=== PATIENT | male | born 1945 | race Hispanic/Latino ===

== ENCOUNTER 2018-01-15 06:20 | Day surgery (SDC) | payer MEDICARE ==
[2018-01-04 12:28] VITALS: BMI 34.2
[2018-01-15 07:13] LABS: INR 0.96; PARTIAL THROMBOPLASTIN TIME 28.3 Seconds (25.1-36.5)
[2018-01-15 07:14] VITALS: RESP 18
[2018-01-15] MEDS ORDERED: Lidocaine 1% Inj (20ml) ONE (07:31)
[2018-01-15] MEDS ORDERED: Bupivacaine 0.5% 50 ML IJ ONE (07:31)
[2018-01-15] MEDS ORDERED: Etomidate 20 mg/10ml Inj IV ONE (07:55)
[2018-01-15] MEDS ORDERED: Propofol 10 mg/ml Inj (20 ML) ONE (07:55)
[2018-01-15] MEDS ORDERED: Midazolam 2 MG/2 ML VIAL ONE (07:55)
[2018-01-15] MEDS ORDERED: Ciprofloxacin 400mg/200ml D5W 400 MG/200 ML BAG IVPB ONE (07:56)
[2018-01-15] MEDS ORDERED: HYDROmorphone 0.5 mg/0.5 ml ISec IVP PRN (09:37)
--- NOTE | 2018-01-15 09:41 | PCM.SURG1 ---
Surgeon's Initial Post Op Note - Surgeon's Notes Surgeon: Dr. De Jesus Leader Tier: Dr. Pham, Dr. Adler Type of Anesthesia: General LMA Anesthesia Administered By: Dr. Adamson Pre-Operative Diagnosis: bilateral lower and upper extremity weakness Operative Findings: see operative dictation Post-Operative Diagnosis: same Operation Performed: left bicep and right quadratus muscle biopsy Specimen/Specimens Removed: left bicep and right qradratus muscle Estimated Blood Loss: EBL {In ML}: 5 Blood Products Given: N/A Drains Used: No Drains Post-Op Condition: Good Date of Surgery/Procedure: 01/15/18 Time of Surgery/Procedure: 09:40
[2018-01-15] MEDS ORDERED: Lactated Ringer's 1,000 ML IV SCH (09:45)
[2018-01-15] MEDS ORDERED: HYDROmorphone 0.5 mg/0.5 ml ISec ONE ×2 (10:00→10:25)
[2018-01-15] MEDS ORDERED: HYDROmorphone 0.5 mg/0.5 ml ISec IVP ONE ×2 (10:01→10:25)
[2018-01-15 11:02] VITALS: PULSE 57; TEMP 97.8; O2SAT 97
[2018-01-15 11:30] VITALS: BP 152/71
--- NOTE | 2018-01-19 13:38 | OP ---
PROCEDURE DATE: 01/15/2018 PREOPERATIVE DIAGNOSIS: Muscle weakness. POSTOPERATIVE DIAGNOSIS: Muscle weakness. PROCEDURES PERFORMED: 1. Muscle biopsy of the left biceps. 2. Muscle biopsy of the right quadriceps muscle in the right. SURGEON: Akhil De Jesus MD. STREET [employer]IL[employer] LINE INSTALLER: Sheron Pham DO and Marcos Roy MD ANESTHESIOLOGIST: Geovanny Adamson MD ANESTHESIA: General endotracheal anesthesia. ESTIMATED BLOOD LOSS: Minimal. SPECIMEN: Muscle biopsy of the left arm from the left biceps muscle and right leg from the quadriceps muscle. INDICATIONS: The patient is a 72-year-old male who was currently being ruled out for myositis and presents with progressive muscle weakness. The patient was scheduled for the muscle biopsy. DESCRIPTION OF PROCEDURE: The patient was brought to the operating room, placed on the operating table in supine position. The patient was connected to EKG, blood pressure, and pulse oximetry monitors. The patient then underwent general endotracheal anesthesia, was prepped and draped in the usual sterile fashion. First a standard time-out procedure took place when everybody in the room agreed as to the patient's identity, diagnosis, and procedure to be performed. Using lidocaine mixed with Marcaine, the skin was infiltrated directly overlying the medial aspect of the biceps muscle. This was then carefully incised using #15 blade for about 5 cm. Through that incision, careful dissection was done down to the muscle fascia which was incised with a knife and . The muscle fibers were exposed and now the bundle about a centimeter thick was carefully from the underlying remaining muscle and mobilized for about 5 cm. It was ligated down to both ends using 3-0 Vicryl tie and resected using #15 blade. The specimen was then tied to the tongue depressor piece and placed in a saline soaked 4 x 4 into the specimen jar. Next the wound was copiously irrigated. All the bleeding points were cauterized. The muscle fascia was closed using 3-0 Vicryl. Subcutaneous tissues were closed using 3-0 Vicryl and skin was closed using 4-0 Monocryl. Sterile Dermabond dressing was applied to that wound. The patient was turned to the area of the right quadriceps muscle where initial left fascial incision was made of about 5 cm and dissection was then down through to the muscle fibers. The muscle fibers were resected again with about 1 cm bundle which was about 4 cm long. This was again wrapped with saline soaked 4 x 4 and placed on the tongue depressor and into the specimen cup. The wound was then copiously irrigated, bleeding points cauterized. Fascia closed. Subcutaneous tissue closed using 3-0 Vicryl and skin closed using 4-0 Monocryl. Sterile Dermabond dressing was applied to the wound. The patient tolerated the procedure well and there was no complication. The patient was awakened, extubated and transferred to recovery room for further observation. Akhil De Jesus MD
== END 2018-01-15 13:15 | disposition home or self-care (01) ==
LOC: SDS 06:20
PROVIDERS: ATTEND General Practice
DX: G72.49 Other inflammatory and immune myopathies, not elsewhere classified (principal); I10 Essential (primary) hypertension; I25.10 Atherosclerotic heart disease of native coronary artery without angina pectoris; E66.9 Obesity, unspecified; Z88.0 Allergy status to penicillin
CPT/HCPCS: 20205; 36415; 85610; 85730; J0744; J1170; J1885; J2001; J2250; J2405; J2704; J2765; J3010; J7120 ×2

== ENCOUNTER 2018-03-14 13:24 | Inpatient (IN) | payer MEDICARE ==
[2018-03-14 13:24] VITALS: BMI 34.2
--- NOTE | 2018-03-14 14:57 | RAD ---
Date of service: 03/14/2018 HISTORY: r/o infiltrate COMPARISON: No prior. FINDINGS: LUNGS: No active pulmonary disease. PLEURA: No significant pleural effusion identified, no pneumothorax apparent. CARDIOVASCULAR: No aortic atherosclerotic calcification present. Mild cardiomegaly no pulmonary vascular congestion. OSSEOUS STRUCTURES: No significant abnormalities. VISUALIZED UPPER ABDOMEN: Normal. OTHER FINDINGS: None. IMPRESSION: No active disease.
--- NOTE | 2018-03-14 15:06 | ED PDOC ---
Arrival/HPI - General Chief Complaint: Abnormal Labs Time Seen by Provider: 03/14/18 13:35 Historian: Patient - History of Present Illness Narrative History of Present Illness (Text): 03/14/18 14:08 72 year old male, whose past medical history includes CAD with 5 stents (3 stents from 2007 and 2 from 2008), diabetes induced, and ankle surgery from age of 11, who was sent to the emergency department from Dr. Rolon's office to be admitted by Dr. Antonio here at [facility] for Polymyositis. Pt notes muscle weakness and shoulder pain, correlating it with having to use walkers to ambulate and Prednisone possibly weakening his muscles. Pt states he has fallen 8 times at home since February 26, 2018. Pt notes leg edema. Pt denies any nausea, vomiting, fevers, or any other complaints. PMD: [place] Time/Duration: Prior to Arrival Symptom Onset: Gradual Symptom Course: Unchanged Activities at Onset: Light Past Medical History - Provider Review Nursing Documentation Reviewed: Yes - Cardiac Hx Hypertension: Yes - Pulmonary Hx Respiratory Disorders: No - Neurological Hx Neurological Disorder: Yes Other/Comment: POLYMYOSITIS - HEENT Hx HEENT Disorder: No - Renal Hx Renal Disorder: No - Endocrine/Metabolic Hx Endocrine Disorders: Yes Hx Diabetes Mellitus Type 2: Yes Hx Hypothyroidism: Yes - Hematological/Oncological Hx Blood Disorders: No - Integumentary Hx Dermatological Disorder: No - Musculoskeletal/Rheumatological Hx Musculoskeletal Disorders: Yes Other/Comment: POLYMYOSITIS - Gastrointestinal Hx Gastrointestinal Disorders: No - Genitourinary/Gynecological Hx Genitourinary Disorders: No - Psychiatric Hx Psychophysiologic Disorder: No Hx Emotional Abuse: No Hx Physical Abuse: No Hx Substance Use: No - Anesthesia Hx Anesthesia: Yes Hx Anesthesia Reactions: No Hx Malignant Hyperthermia: No - Suicidal Assessment Feels Threatened In Home Enviroment: No Family/Social History - Physician Review Nursing Documentation Reviewed: Yes Family/Social History: No Known Family HX Smoking Status: Never Smoked Hx Alcohol Use: Yes (WINE) Hx Substance Use: No Allergies/Home Meds Allergies/Adverse Reactions: Allergies Penicillins Allergy (Severe, Verified 01/04/18 12:30) RASH,HIVES,SHORT OF BREATH Home Medications: Home Meds Medication Instructions Recorded Confirmed Ascorbic Acid [Vitamin C] 1,000 mg PO QWK 01/04/18 03/01/18 Aspirin [Ecotrin] 81 mg PO DAILY 01/04/18 03/01/18 Cholecalciferol (Vitamin D3) 2,000 unit PO DAILY 01/04/18 03/01/18 [Vitamin D3] Clopidogrel [Plavix] 75 mg PO DAILY 01/04/18 03/01/18 Metoprolol Tartrate [Lopressor] 25 mg PO BID 01/04/18 03/01/18 [place]-3 Fatty Acids/Fish Oil 1,200 mg PO BID 01/04/18 03/01/18 [[place] 3 Fish Oil Softgel] Hyalur AC/Chond Sul/Colg II/Aa 100 mg PO DAILY 03/01/18 03/01/18 [Hyaluronic Acid 40 mg Capsule] Metformin HCl [Glucophage] 850 mg PO DAILY 03/01/18 03/01/18 Multivitamin [Daily Multiple 1 tab PO DAILY 03/01/18 03/01/18 Vitamin] Pantoprazole Sodium [Protonix] 40 mg PO DAILY 03/01/18 03/01/18 Prednisone [Lupe] 10 mg PO Q4H 03/01/18 03/01/18 Turmeric Root Extract [Turmeric 1,000 mg PO BID 03/01/18 03/01/18 Curcumin] Ubidecarenone/Vit E Acet [Co Q-10 100 mg PO DAILY 03/01/18 03/01/18 100 mg Softgel] Review of Systems - Physician Review All systems were reviewed & negative as marked: Yes - Review of Systems Constitutional: Fatigue (pt notes muscle weakness). absent: Normal, Fevers Gastrointestinal: Normal. absent: Nausea, Vomiting Musculoskeletal: Other (Pt notes shoulder pain and swelling of both legs). absent: Normal Physical Exam Vital Signs Reviewed: Yes Vital Signs Temp Pulse Resp BP Pulse Ox 03/14/18 13:44 97.5 F L 106 H 18 144/86 95 Temperature: Afebrile Blood Pressure: Normal Pulse: Tachycardic Respiratory Rate: Normal Appearance: Positive for: Well-Appearing, Non-Toxic Pain Distress: Mild Mental Status: Positive for: Alert and Oriented X 3 Medical Decision Making ED Course and Treatment: 03/14/18 14:08 Impression: 72 year old male presents to the emergency department from Dr. Rolon's office: Polymyositis Plan: -- EKG -- Labs -- X-Ray of chest -- Reassess and disposition Progress Notes: 03/14/18 15:20 EKG shows aFib with RVR at rate of 187 BPM. I went back to confirm the rate, but it came down to 124 BPM. My plan is to give pt IV fluids and Cardizem PO by mouth. Patient's heart rate went up to 197 BPM. Pt was given Cardizem 20mg x2 and IV fluids. I am going to call Dr. Antonio to update him on patient. Upon reevaluation, pt's heart rate is at 160 BPM. Pt needs Cardizem drip. 03/14/18 15:40 Spoke to Nurse Practitioner Charmaine who works with Dr. Antonio, who told me Dr. Antonio is aware pt will be admitted under his service. - RAD Interpretation Narrative RAD Interpretations (Text): X-Ray of chest reviewed by radiologist, shows: Dictated by: Dr. Mohinder Ellington MD Dictated Date/Time: 03/14/18 14:53 Impression: No active disease. Radiology Orders: 03/14/18 14:19 CHEST PORTABLE [RAD] Stat Disability Specialist: Radiologist - Scribe Statement The provider has reviewed the documentation as recorded by the Scribe Laura Castillo All medical record entries made by the Scribe were at my direction and personally dictated by me. I have reviewed the chart and agree that the record accurately reflects my personal performance of the history, physical exam, medical decision making, and the department course for this patient. I have also personally directed, reviewed, and agree with the discharge instructions and disposition. Disposition/Present on Arrival - Present on Arrival Any Indicators Present on Arrival: Yes History of DVT/PE: No History of Uncontrolled Diabetes: No Urinary Catheter: No History of Decub. Ulcer: No History Surgical Site Infection Following: None - Disposition Have Diagnosis and Disposition been Completed?: Yes Diagnosis: Polymyositis, Rapid atrial fibrillation Disposition: HOSPITALIZED Disposition Time: 16:24 Patient Plan: ICU Condition: FAIR
[2018-03-14 15:09] LABS: BASO # 0.01 K/mm3 (0.0-2.0); BASO % 0.1 % (0.0-3.0); EOS % 0.1 % (1.5-5.0); GRAN # 11.26 (1.4-6.5); GRAN % 92.6 % (50.0-68.0); LYMPH # 0.6 (1.2-3.4); LYMPH % 5.1 % (22.0-35.0); MEAN CELL VOLUME 88.6 fl (80.0-105.0); MEAN CORPUSCULAR HEMOGLOBIN 29.5 pg (25.0-35.0); MEAN CORPUSCULAR HGB CONC 33.3 g/dl (31.0-37.0); MEAN PLATELET VOLUME 10.2 fl (7.0-11.0); MONO # 0.3 (0.1-0.6); MONO % 2.1 % (1.0-6.0); PLATELET COUNT 171 10^3/uL (120.0-450.0); RBC 4.74 10^6/uL (3.5-6.1); RED CELL DISTRIBUTION WIDTH 15.1 % (11.5-14.5); WHITE BLOOD COUNT 12.2 10^3/uL (4.5-11.0)
[2018-03-14 15:33] LABS: ALB/GLOB RATIO 1.3 (1.1-1.8); ALBUMIN 3.6 g/dL (3.0-4.8); ALT/SGPT 144 U/L (7-56); AST/SGOT 54 U/L (17-59); BLOOD UREA NITROGEN 28 mg/dL (7-21); CALCIUM 9.7 mg/dL (8.4-10.5); GFR NON-AFRICAN AMERICAN > 60
--- NOTE | 2018-03-14 15:45 | CP.PCM.CON ---
<Edwin Garcia - Last Filed: 03/14/18 17:45> History of Present Illness - History of Present Illness History of Present Illness: Neurology Consultation (Dr. Swanson's Service) CC: Polymyositis HPI: Mr. 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 Patient presented to his Neurologist earlier today for increasing muscle weakness and shoulder pain. He also reports that he has been recently started on chronic daily PO steroids and that he thinks this may have contributed to his weakness. He endorses increasing difficulty with ambulation and more frequent falls since the beginning of the year. He currently denies any other symptoms and 12 point ROS unremarkable except what is written above. PMH: As stated above PSH: Muscle Biopsy (12/2017), Unspecified Ankle Surgery Family History: Denies Social History: Denies any tobacco, alcohol or illicit drug abuse Allergies: PCN Home Medications: As per [facility] PMD: Dr. Antonio Neurologist: Dr. Rolon Review of Systems - Review of Systems Review of Systems: As stated in HPI, otherwise negative Past Patient History - Past Social History Smoking Status: Never Smoked - CARDIAC Hx Hypertension: Yes - PULMONARY Hx Respiratory Disorders: No - NEUROLOGICAL Hx Neurological Disorder: Yes Other/Comment: POLYMYOSITIS - HEENT Hx HEENT Problems: No - RENAL Hx Chronic Kidney Disease: No - ENDOCRINE/METABOLIC Hx Endocrine Disorders: Yes Hx Diabetes Mellitus Type 2: Yes Hx Hypothyroidism: Yes - HEMATOLOGICAL/ONCOLOGICAL Hx Blood Disorders: No - INTEGUMENTARY Hx Dermatological Problems: No - MUSCULOSKELETAL/RHEUMATOLOGICAL Hx Musculoskeletal Disorders: Yes Other/Comment: POLYMYOSITIS - GASTROINTESTINAL Hx Gastrointestinal Disorders: No - GENITOURINARY/GYNECOLOGICAL Hx Genitourinary Disorders: No - PSYCHIATRIC Hx Psychophysiologic Disorder: No Hx Emotional Abuse: No Hx Physical Abuse: No Hx Substance Use: No - SURGICAL HISTORY Hx Surgeries: Yes - ANESTHESIA Hx Anesthesia: Yes Hx Anesthesia Reactions: No Hx Malignant Hyperthermia: No Meds Allergies/Adverse Reactions: Allergies Allergy/AdvReac Type Severity Reaction Status Date / Time Penicillins Allergy Severe RASH,HIVES,SHORT Verified 01/04/18 12:30 OF BREATH - Medications Medications: Current Medications Acetaminophen (Tylenol 325mg Tab) 650 mg PO ONCE ONE Stop: 03/14/18 15:42 Diphenhydramine HCl (Benadryl) 50 mg PO ONCE ONE Stop: 03/14/18 15:42 Hydrocortisone Sodium Succinate (Solu-Cortef) 50 mg IVP ONCE ONE Stop: 03/14/18 15:44 Immune Globulin 50 gm/ (Miscellaneous) 500 mls @ 0 mls/hr IV DAILY KIMMIE Stop: 03/16/18 23:59 Physical Exam - Constitutional Appears: Non-toxic, No Acute Distress - Head Exam Head Exam: ATRAUMATIC, NORMOCEPHALIC - Eye Exam Eye Exam: EOMI, Normal appearance, PERRL Pupil Exam: NORMAL ACCOMODATION - ENT Exam ENT Exam: Mucous Membranes Moist - Neck Exam Neck exam: Positive for: Full Rom - Respiratory Exam Respiratory Exam: Clear to Auscultation Bilateral, NORMAL BREATHING PATTERN - Cardiovascular Exam Cardiovascular Exam: REGULAR RHYTHM - GI/Abdominal Exam GI & Abdominal Exam: Normal Bowel Sounds, Soft. absent: Tenderness - Extremities Exam Extremities exam: Positive for: pedal edema - Neurological Exam Neurological exam: Alert, CN II-XII Intact, Oriented x3 Additional comments: UE: 5/5 strength in muscle groups distal to deltoid bilaterally; 3/5 strength in deltoid bilaterally LE: 2/5 strength in muscle groups distal to hip flexors/extensors; 1/5 strength in right hip flexors/extensors; 0/5 strength in left hip flexors/extensors - Expanded Neurological Exam Expanded Coma Scale Eye Opening: SPONTANEOUS Coma Scale Motor Response: OBEYS COMMANDS Coma Scale Verbal: Oriented Coma Scale Total: 15 - Psychiatric Exam Psychiatric exam: Normal Affect, Normal Mood Results - Vital Signs Recent Vital Signs: Last Vital Signs Temp 97.5 F L 03/14/18 13:44 Pulse 119 H 03/14/18 15:33 Resp 18 03/14/18 13:44 BP 130/66 03/14/18 15:33 Pulse Ox 95 03/14/18 13:44 - Labs Result Diagrams: 03/14/18 15:00 03/14/18 15:00 Labs: Laboratory Results - last 24 hr 03/14/18 03/14/18 15:00 15:00 WBC 12.2 H D RBC 4.74 Hgb 14.0 D Hct 42.0 MCV 88.6 MCH 29.5 MCHC 33.3 RDW 15.1 H Plt Count 171 MPV 10.2 Gran % 92.6 H Lymph % (Auto) 5.1 L Schleicher % (Auto) 2.1 Eos % (Auto) 0.1 L Baso % (Auto) 0.1 Gran # 11.26 H Lymph # (Auto) 0.6 L Schleicher # (Auto) 0.3 Eos # (Auto) 0.0 Baso # (Auto) 0.01 Sodium 137 Potassium 5.2 H Chloride 100 Carbon Dioxide 29 Anion Gap 13 BUN 28 H Creatinine 0.8 Est GFR ( Amer) > 60 Est GFR (Non-Af Amer) > 60 Random Glucose 395 H* D Calcium 9.7 Total Bilirubin 1.0 AST 54 ALT 144 H Alkaline Phosphatase 97 Total Creatine Kinase 96 Total Protein 6.3 Albumin 3.6 Globulin 2.7 Albumin/Globulin Ratio 1.3 Assessment & Plan - Assessment and Plan (Free Text) Assessment: 72 year old male with a past medical history significant for Polymyositis (Biopsy proven 12/2017), CAD s/p 5 SUZIE, HTN, Hypothyroidism and DM2 who presented from his Neurologist's office worsening Polymyositis and IVIG infusion. Plan: -IVIG 50g daily for three days (Approximately 2000mg/kg/treatment course divided over 3-5 days) -Pre-Medications as ordered to be administered with IVIG -Further recommendations as per Dr. Swanson Patient seen and case discussed with attending, Dr. Swanson. Edwin Garcia PGY2 - Date & Time Date: 03/14/18 Time: 15:45 <Niranjan Swanson - Last Filed: 03/14/18 18:06> Meds - Medications Medications: Current Medications Aspirin (Ecotrin) 81 mg PO DAILY [facility] Cholecalciferol (Vitamin D) 2,000 intlu PO DAILY [facility] Clopidogrel Bisulfate (Plavix) 75 mg PO DAILY [facility] Dextrose (Dextrose 50% Inj) 0 ml IV STAT PRN; Protocol PRN Reason: Hypoglycemia Protocol Immune Globulin 50 gm/ (Miscellaneous) 500 mls @ 0 mls/hr IV DAILY KIMMIE Stop: 03/16/18 23:59 Last Admin: 03/14/18 17:38 Dose: 500 mls/hr diltiaZEM IVPB 100mg in NS (Cardizem 100mg In Ns) 100 mls @ 5 mls/hr IV .Q20H PRN; Protocol PRN Reason: TITRATE PER MD ORDER Last Admin: 03/14/18 17:14 Dose: 5 mg/hr, 5 mls/hr Dextrose (Dextrose 5% In Water 1000 Ml) 1,000 mls @ 0 mls/hr IV .Q0M PRN; Protocol PRN Reason: Hypoglycemia Protocol Insulin Human Regular (Humulin R Med) 0 units SC ACHS KIMMIE; Protocol Pantoprazole Sodium (Protonix Ec Tab) 40 mg PO DAILY KIMMIE Prednisone (Prednisone Tab) 10 mg PO Q4H KIMMIE Results - Vital Signs Recent Vital Signs: Last Vital Signs Temp 97.6 F 03/14/18 17:26 Pulse 125 H 03/14/18 17:26 Resp 18 03/14/18 17:26 BP 144/64 03/14/18 17:26 Pulse Ox 98 03/14/18 17:26 - Labs Result Diagrams: 03/14/18 15:00 03/14/18 15:00 Labs: Laboratory Results - last 24 hr 03/14/18 03/14/18 15:00 15:00 WBC 12.2 H D RBC 4.74 Hgb 14.0 D Hct 42.0 MCV 88.6 MCH 29.5 MCHC 33.3 RDW 15.1 H Plt Count 171 MPV 10.2 Gran % 92.6 H Lymph % (Auto) 5.1 L Schleicher % (Auto) 2.1 Eos % (Auto) 0.1 L Baso % (Auto) 0.1 Gran # 11.26 H Lymph # (Auto) 0.6 L Schleicher # (Auto) 0.3 Eos # (Auto) 0.0 Baso # (Auto) 0.01 Neutrophils % (Manual) 87 H Band Neutrophils % 2 Lymphocytes % (Manual) 5 L Monocytes % (Manual) 5 Metamyelocytes % 1 Platelet Evaluation Normal ESR 20 H Sodium 137 Potassium 5.2 H Chloride 100 Carbon Dioxide 29 Anion Gap 13 BUN 28 H Creatinine 0.8 Est GFR ( Amer) > 60 Est GFR (Non-Af Amer) > 60 Random Glucose 395 H* D Calcium 9.7 Total Bilirubin 1.0 AST 54 ALT 144 H Alkaline Phosphatase 97 Total Creatine Kinase 96 Total Protein 6.3 Albumin 3.6 Globulin 2.7 Albumin/Globulin Ratio 1.3 Assessment & Plan - Assessment and Plan (Free Text) Assessment: I examined the patient independently and with the resident and agree with the assessment and plan. His neurological exam shows that his deltoids are 3/5, whereas upper limbs are 5/5. There were no fasiculations or atrophy noted and profound 3+ pitting edema in lower limbs was present. There is also profound proximal weakness in lower legs, with much weaker limbs: PF, TA, TP and Hams and quads are 1/1 Plan: 1. ONe dose of IVIG now: 50 gms 2. He is scheduled for another IVIG dose tomorrow. Dr. Niranjan Betancourt MD DPN [facility] Neurology
[2018-03-14 15:49] LABS: BAND 2 % (0-2); LYMPHOCYTE 5 % (22.0-35.0); METAMYELOCYTE 1 %; MONOCYTE 5 % (1.0-6.0); NEUTROPHIL 87 % (50.0-70.0)
[2018-03-14 15:50] LABS: PLATELET ESTIMATE NORMAL (NORMAL)
[2018-03-14 16:08] LABS: ERYTHROCYTE SEDIMENTATION RATE 20 mm/hr (0.00-15.0)
[2018-03-14] MEDS ORDERED: Insulin Regular 1 UNITS/0.01 ML ML SC STA (16:23)
[2018-03-14] MEDS: diltiaZEM IVPB 100mg in NS 100 ML IV PRN (17:14)
[2018-03-14] MEDS ORDERED: PREDNISONE 10 MG PO SCH (17:30)
[2018-03-14] MEDS: IMMUNE GLOBULIN IV SCH (17:38)
[2018-03-14] MEDS: PREMIXED IV SCH (17:38)
[2018-03-14] MEDS ORDERED: Dextrose 50% SYRINGE Inj (50 ml) IV PRN (17:47)
--- NOTE | 2018-03-14 18:08 | CP.PCM.CON ---
<KishaHunter - Last Filed: 03/14/18 18:14> History of Present Illness - History of Present Illness History of Present Illness: Hunter Beard, PGY-1, ICU Consult Note for Dr. Bullock 72 year old male with a past medical history significant for 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 Patient presented to his Neurologist earlier to day for increasing muscle weakness and shoulder pain. Patient reports that he started to feel crampy bilateral promixal lower extremity pain that started in 07/2017. In 08/2017, he started to notice bilateral lower extremity weakness and had multiple falls. Patient was diagnosed with polymyositis by muscle biopsy in 12/2017. Patient was subsequently started on prednisone and biweekly IVIG. He has increasing difficulty with ambulation and more frequent falls since the beginning of the year and has fallen 8 times this year with multiple bruises on his abdomen and bilateral lower extremities. He specifically notes injuring his right foot while trying to ambulate. Patient uses a walker to ambulate at home but reports much difficulty ambulating with his walker. Upon presentation to the hospital, EKG showed atrial fibrillation with RVR with HR of 187. He was given IV fluids and cardizem PO with reduction of his heart rate to 124. Heart rate subsequently zoraida to 197. Patient was given cardizem 20 mg x2 and IV fluids. Patient was subsequently started on a cardizem drip for rate control of his atrial fibrillation. He denies any chest pain, heart palpitations, shortness of breath, nausea, vomiting, jaw pain, left arm pain, diaphoresis, constipation, diarrhea, dysuria, hematuria. 12 point ROS is unremarkable except what is written above. PMH: As stated above PSH: Muscle Biopsy (12/2017), Unspecified Ankle Surgery at 11 years old Family History: Denies Social History: smoked 1 PPD for 40 years, stopped 6 years ago. Drinks 3-4 glasses of wine weekly, denies recreational drug use Allergies: PCN-rash Home Medications: As per APR PMD: Dr. Antonio Neurologist: Dr. Rolon Review of Systems - Review of Systems Review of Systems: except for what was mentioned in HPI Past Patient History - Past Social History Smoking Status: Never Smoked - CARDIAC Hx Hypertension: Yes - PULMONARY Hx Respiratory Disorders: No - NEUROLOGICAL Hx Neurological Disorder: Yes Other/Comment: POLYMYOSITIS - HEENT Hx HEENT Problems: No - RENAL Hx Chronic Kidney Disease: No - ENDOCRINE/METABOLIC Hx Endocrine Disorders: Yes Hx Diabetes Mellitus Type 2: Yes Hx Hypothyroidism: Yes - HEMATOLOGICAL/ONCOLOGICAL Hx Blood Disorders: No - INTEGUMENTARY Hx Dermatological Problems: No - MUSCULOSKELETAL/RHEUMATOLOGICAL Hx Musculoskeletal Disorders: Yes Other/Comment: POLYMYOSITIS - GASTROINTESTINAL Hx Gastrointestinal Disorders: No - GENITOURINARY/GYNECOLOGICAL Hx Genitourinary Disorders: No - PSYCHIATRIC Hx Psychophysiologic Disorder: No Hx Emotional Abuse: No Hx Physical Abuse: No Hx Substance Use: No - SURGICAL HISTORY Hx Surgeries: Yes - ANESTHESIA Hx Anesthesia: Yes Hx Anesthesia Reactions: No Hx Malignant Hyperthermia: No Meds Allergies/Adverse Reactions: Allergies Allergy/AdvReac Type Severity Reaction Status Date / Time Penicillins Allergy Severe RASH,HIVES,SHORT Verified 01/04/18 12:30 OF BREATH - Medications Medications: Current Medications Aspirin (Ecotrin) 81 mg PO DAILY [facility] Clopidogrel Bisulfate (Plavix) 75 mg PO DAILY [facility] Dextrose (Dextrose 50% Inj) 0 ml IV STAT PRN; Protocol PRN Reason: Hypoglycemia Protocol Furosemide (Lasix) 20 mg IVP ONCE ONE Stop: 03/14/18 17:52 Immune Globulin 50 gm/ (Miscellaneous) 500 mls @ 0 mls/hr IV DAILY [facility] Stop: 03/16/18 23:59 Last Admin: 03/14/18 17:38 Dose: 500 mls/hr diltiaZEM IVPB 100mg in NS (Cardizem 100mg In Ns) 100 mls @ 5 mls/hr IV .Q20H PRN; Protocol PRN Reason: TITRATE PER MD ORDER Last Admin: 03/14/18 17:14 Dose: 5 mg/hr, 5 mls/hr Dextrose (Dextrose 5% In Water 1000 Ml) 1,000 mls @ 0 mls/hr IV .Q0M PRN; Protocol PRN Reason: Hypoglycemia Protocol Insulin Human Regular (Humulin R Med) 0 units SC ACHS KIMMIE; Protocol Non-Formulary Medication (Cholecalciferol (Vitamin D3) [Vitamin D3]) 2,000 unit PO DAILY [facility] Pantoprazole Sodium (Protonix Ec Tab) 40 mg PO DAILY [facility] Prednisone (Prednisone Tab) 10 mg PO Q4H [facility] Physical Exam - Constitutional Appears: Well, Non-toxic, No Acute Distress - Head Exam Head Exam: ATRAUMATIC, NORMAL INSPECTION, NORMOCEPHALIC - Eye Exam Eye Exam: EOMI, PERRL - ENT Exam ENT Exam: Mucous Membranes Moist - Neck Exam Neck exam: Positive for: Normal Inspection - Respiratory Exam Respiratory Exam: Clear to Auscultation Bilateral, NORMAL BREATHING PATTERN - Cardiovascular Exam Cardiovascular Exam: Tachycardia, Irregular Rhythm - GI/Abdominal Exam GI & Abdominal Exam: Normal Bowel Sounds, Soft. absent: Tenderness Additional comments: bruising present on right upper quadrant - Extremities Exam Additional comments: +2/5 strength in bilateral lower extremity, +5/5 strength in bilateral upper extremities significant bruising present on right foot and surrounding the patellar region on the right lower extremity - Back Exam Back exam: NORMAL INSPECTION - Neurological Exam Neurological exam: Alert, CN II-XII Intact, Oriented x3 - Psychiatric Exam Psychiatric exam: Normal Affect, Normal Mood - Skin Additional comments: multiple bruises throughout the body Results - Vital Signs Recent Vital Signs: Last Vital Signs Temp 97.6 F 03/14/18 17:26 Pulse 125 H 03/14/18 17:26 Resp 18 03/14/18 17:26 BP 144/64 03/14/18 17:26 Pulse Ox 98 03/14/18 17:26 - Labs Result Diagrams: 03/14/18 15:00 03/14/18 15:00 Labs: Laboratory Results - last 24 hr 03/14/18 03/14/18 15:00 15:00 WBC 12.2 H D RBC 4.74 Hgb 14.0 D Hct 42.0 MCV 88.6 MCH 29.5 MCHC 33.3 RDW 15.1 H Plt Count 171 MPV 10.2 Gran % 92.6 H Lymph % (Auto) 5.1 L Dawson % (Auto) 2.1 Eos % (Auto) 0.1 L Baso % (Auto) 0.1 Gran # 11.26 H Lymph # (Auto) 0.6 L Dawson # (Auto) 0.3 Eos # (Auto) 0.0 Baso # (Auto) 0.01 Neutrophils % (Manual) 87 H Band Neutrophils % 2 Lymphocytes % (Manual) 5 L Monocytes % (Manual) 5 Metamyelocytes % 1 Platelet Evaluation Normal ESR 20 H Sodium 137 Potassium 5.2 H Chloride 100 Carbon Dioxide 29 Anion Gap 13 BUN 28 H Creatinine 0.8 Est GFR ( Amer) > 60 Est GFR (Non-Af Amer) > 60 Random Glucose 395 H* D Calcium 9.7 Total Bilirubin 1.0 AST 54 ALT 144 H Alkaline Phosphatase 97 Total Creatine Kinase 96 Total Protein 6.3 Albumin 3.6 Globulin 2.7 Albumin/Globulin Ratio 1.3 Assessment & Plan - Assessment and Plan (Free Text) Assessment: 72 year old male with a past medical history significant for 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 EKG showed atrial fibrillation with RVR with HR of 187. Plan: Neuro: Polymyositis with multiple falls -AAOx3, no FND -Muscle biopsy in 12/2017 confirms polymyositis. -Continue home prednisone 10 mg QID -Continue IVIG as recommended by Dr. Swanson, Neurology. -Right foot X ray ordered to rule out fracture from repeated falls -Duplex ultrasound of bilateral lower extremities to rule out DVT -Monitor neuro status. -Reorient patient as necessary. Cardio: Atrial Fibrillation -IR IR, normotensive -EKG: atrial fibrillation with RBR with HR: 187 -Troponin level ordered -Cardizem drip started at 5 mg/hr -Enoxaparin 40 mg daily for anticoagulation. Due to patient's history of falls, Dr. Nino, Cardiology, recommends holding off on therapeutic anticoagulation. -Maintain MAP>65. -Monitor for S/S, HD compromise. CAD -Continue home aspirin and plavix. -Home metoprolol held due to cardizem drip. Bilateral lower extremity edema -Echocardiogram results unknown. Will follow up in the AM -Lasix 20 mg IV daily -Dr. Zhu, Cardiology, consulted for recommendations. Please follow recommendations. Pulm: -No signs of respiratory distress. CTA B/L -Patient is stating well on room air. -Maintain O2 saturation>95%. -O2 NC PRN -Elevate bed to 30 degrees GI: Diet -Heart health diet GI prophylaxis -Protonix 40 mg daily necessary due to chronic prednisone use. Isolated elevated ALT -ALT: 144 -Continue to monitor /Nephro: -BUN/Cr stable at 28/0.8 -Good urine output -Hyperkalemia at 5.2 -Lasix 20 mg will decreased the elevated potassium level. -Replete electrolytes as needed. -Maintain euvolemia. Endocrinology: Diabetes mellitus type II -Random glucose: 395 -Medium SSI -Maintain euglycemia. Heme/Onc: -H/H stable at 14/42 -No signs of HD compromise. -Continue monitoring H/H DVT prophylaxis -Enoxaparin 40 mg daily ID: -Afebrile, no leukocytosis -Monitor for signs and symptoms of infection. Patient seen and examined with Ara. - Date & Time Date: 03/14/18 Time: 18:10 <Alonso Bullock - Last Filed: 03/14/18 18:38> Meds - Medications Medications: Current Medications Aspirin (Ecotrin) 81 mg PO DAILY [facility] Cholecalciferol (Vitamin D) 2,000 intlu PO DAILY [facility] Clopidogrel Bisulfate (Plavix) 75 mg PO DAILY [facility] Dextrose (Dextrose 50% Inj) 0 ml IV STAT PRN; Protocol PRN Reason: Hypoglycemia Protocol Enoxaparin Sodium (Lovenox) 40 mg SC DAILY [facility]; Protocol Furosemide (Lasix) 20 mg IVP DAILY [facility] Immune Globulin 50 gm/ (Miscellaneous) 500 mls @ 0 mls/hr IV DAILY [facility] Stop: 03/16/18 23:59 Last Admin: 03/14/18 17:38 Dose: 500 mls/hr diltiaZEM IVPB 100mg in NS (Cardizem 100mg In Ns) 100 mls @ 5 mls/hr IV .Q20H PRN; Protocol PRN Reason: TITRATE PER MD ORDER Last Admin: 03/14/18 17:14 Dose: 5 mg/hr, 5 mls/hr Dextrose (Dextrose 5% In Water 1000 Ml) 1,000 mls @ 0 mls/hr IV .Q0M PRN; Protocol PRN Reason: Hypoglycemia Protocol Insulin Human Regular (Humulin R Med) 0 units SC ACHS KIMMIE; Protocol Pantoprazole Sodium (Protonix Ec Tab) 40 mg PO DAILY [facility] Prednisone (Prednisone Tab) 10 mg PO Q4H KIMMIE Results - Vital Signs Recent Vital Signs: Last Vital Signs Temp 97.6 F 03/14/18 17:26 Pulse 125 H 03/14/18 17:26 Resp 18 03/14/18 17:26 BP 144/64 03/14/18 17:26 Pulse Ox 98 03/14/18 17:26 - Labs Result Diagrams: 03/14/18 15:00 03/14/18 15:00 Labs: Laboratory Results - last 24 hr 03/14/18 03/14/18 15:00 15:00 WBC 12.2 H D RBC 4.74 Hgb 14.0 D Hct 42.0 MCV 88.6 MCH 29.5 MCHC 33.3 RDW 15.1 H Plt Count 171 MPV 10.2 Gran % 92.6 H Lymph % (Auto) 5.1 L Dawson % (Auto) 2.1 Eos % (Auto) 0.1 L Baso % (Auto) 0.1 Gran # 11.26 H Lymph # (Auto) 0.6 L Dawson # (Auto) 0.3 Eos # (Auto) 0.0 Baso # (Auto) 0.01 Neutrophils % (Manual) 87 H Band Neutrophils % 2 Lymphocytes % (Manual) 5 L Monocytes % (Manual) 5 Metamyelocytes % 1 Platelet Evaluation Normal ESR 20 H Sodium 137 Potassium 5.2 H Chloride 100 Carbon Dioxide 29 Anion Gap 13 BUN 28 H Creatinine 0.8 Est GFR ( Amer) > 60 Est GFR (Non-Af Amer) > 60 Random Glucose 395 H* D Calcium 9.7 Total Bilirubin 1.0 AST 54 ALT 144 H Alkaline Phosphatase 97 Total Creatine Kinase 96 Total Protein 6.3 Albumin 3.6 Globulin 2.7 Albumin/Globulin Ratio 1.3 Attending/Attestation - Attestation I have personally seen and examined this patient.: Yes I have fully participated in the care of the patient.: Yes I have reviewed all pertinent clinical information: Yes Notes (Text): 03/14/18 18:38 The patient was seen and examined at the bedside. Patient care was discussed with resident Medical records, lab studies were reviewed and management issues were discussed and formulated. Agree with above treatment plans as outlined in 's note with addition of the following: Afib with RVR \ Plymyositis \ DM 2 \ Hyperkalemia \ Elevated LFT \ ho CAD \ -hemodynamic monitoring to maintain MAP>65 -continue cardizem drip for rate control -continue ASA and Plavix -f\u Echo -cardiology team eval -o2 supplementation to maintain Spo2>90 Pao2>60; currently comfortable on NC -f\u fever curve and monitor cultures -f\u Bun\Cr and U\o; diuresis with lasix; f\u repeat K+ -PO diet as tolerated and aspiration precautions -ISS and BGM monitoring -continue steroids and IVIG as per neurology team -anticoagulation as per primary team as pt has h\o multiple falls -f\u LE duplex to ro DVT -Xray of right foot -DVT prophylaxis CCM time 36min
[2018-03-14] MEDS ORDERED: Insulin Reg-MEDIUM-Coverage SC SCH (22:00)
[2018-03-15] MEDS: diltiaZEM IVPB 100mg in NS 100 ML IV PRN ×3 (05:14→21:04)
[2018-03-15 07:34] LABS: EOS % 0.1 % (1.5-5.0); GRAN # 8.06 (1.4-6.5); GRAN % 86.3 % (50.0-68.0); HEMOGLOBIN 12.3 g/dL (14.0-18.0); LYMPH # 0.8 (1.2-3.4); LYMPH % 8.4 % (22.0-35.0); MEAN CELL VOLUME 87.8 fl (80.0-105.0); MEAN CORPUSCULAR HEMOGLOBIN 29.5 pg (25.0-35.0); MEAN CORPUSCULAR HGB CONC 33.6 g/dl (31.0-37.0); MEAN PLATELET VOLUME 9.9 fl (7.0-11.0); MONO # 0.5 (0.1-0.6); MONO % 5.2 % (1.0-6.0); RBC 4.17 10^6/uL (3.5-6.1); RED CELL DISTRIBUTION WIDTH 15.4 % (11.5-14.5); WHITE BLOOD COUNT 9.3 10^3/uL (4.5-11.0)
[2018-03-15 07:43] LABS: ALBUMIN 3.2 g/dL (3.0-4.8); ALT/SGPT 116 U/L (7-56); AST/SGOT 35 U/L (17-59); BLOOD UREA NITROGEN 29 mg/dL (7-21); GFR NON-AFRICAN AMERICAN > 60
--- NOTE | 2018-03-15 09:06 | CARD ---
APPROVED REPORT Date of service: 03/14/2018 EKG Measurement Heart [id number] <Conclusion> Atrial fibrillation with rapid ventricular response Right bundle branch block Cannot rule out Inferior infarct, age undetermined T wave abnormality, consider lateral ischemia or digitalis effect Abnormal ECG
--- NOTE | 2018-03-15 09:14 | CP.CCUPN ---
<Hunter Beard - Last Filed: 03/15/18 10:23> CCU Subjective - Physician Review Subjective (Free Text): Hunter Beard, PGY-1, ICU Progress Note for Dr. Bullock Patient seen and evaluated at bedside. Patient denies any overnight events. Patient denies any new symptoms but continues to complain of bilateral lower extremity weakness. Patient denies chest pain, shortness of breath, nausea, vomiting, diaphoresis, left arm pain, jaw pain, heart palpitations. 12-point ROS was negative except for what was mentioned above. CCU Objective - Vital Signs / Intake & Output Intake and Output (Last 8hrs): Intake & Output 03/14/18 03/15/18 03/15/18 22:59 06:59 14:59 Intake Total 320 Output Total 1600 Balance -1280 Weight 251 lb 12.8 oz 251 lb 12.8 oz Intake: IV 200 Right Antecubital 100 Oral 120 Output: Urine 1600 Urine, Voided 1600 Other: Voiding Method Urinal - Physical Exam Head: Positive for: Atraumatic, Normocephalic Pupils: Positive for: PERRL Extroacular Muscles: Positive for: EOMI Mouth: Positive for: Moist Mucous Membranes Neck: Positive for: Normal Range of Motion Respiratory/Chest: Positive for: Clear to Auscultation Cardiovascular: Positive for: Regular Rate and Rhythm Abdomen: Positive for: Other (bruise on RUQ). Negative for: Tenderness, Distention Back: Positive for: Normal Inspection Upper Extremity: Positive for: Normal Inspection Lower Extremity: Positive for: Normal Inspection, Other (weakness of bilateral lower extremity +2/5 strength throughout) Neurological: Positive for: GCS=15, CN II-XII Intact, Speech Normal Skin: Positive for: Other (bruises present on right lower extremity, especially right foot) Psychiatric: Positive for: Alert, Oriented x 3 - Medications Active Medications: Active Medications Generic Name Dose Route Start Last Admin Trade Name Freq PRN Reason Stop Dose Admin Aspirin 81 mg 03/15/18 10:00 Ecotrin PO DAILY [facility] Cholecalciferol 2,000 intlu 03/15/18 10:00 Vitamin D PO DAILY [facility] Clopidogrel Bisulfate 75 mg 03/15/18 10:00 Plavix PO DAILY [facility] Dextrose 0 ml 03/14/18 17:47 Dextrose 50% Inj IV STAT PRN Hypoglycemia Protocol Protocol Enoxaparin Sodium 40 mg 03/15/18 10:00 Lovenox SC DAILY KIMMIE Protocol Furosemide 20 mg 03/15/18 10:00 Lasix IVP DAILY K[facility]MIE Immune Globulin 50 gm/ 500 mls @ 0 mls/hr 03/14/18 15:45 03/14/18 17:38 Miscellaneous IV 03/16/18 23:59 500 mls/hr DAILY KIMMIE Administration Per Protocol diltiaZEM IVPB 100mg in NS 100 mls @ 5 mls/hr 03/14/18 16:34 03/15/18 05:14 Cardizem 100mg In Ns IV 15 mg/hr .Q20H PRN 15 mls/hr TITRATE PER MD ORDER Administration Protocol 5 MG/HR Dextrose 1,000 mls @ 0 mls/hr 03/14/18 17:47 Dextrose 5% In Water 1000 Ml IV .Q0M PRN Hypoglycemia Protocol Protocol Per Protocol Insulin Human Regular 0 units 03/15/18 11:30 Humulin R High SC ACHS KIMMIE Protocol Pantoprazole Sodium 40 mg 03/15/18 10:00 Protonix Ec Tab PO DAILY KIMMIE Prednisone 10 mg 03/15/18 00:00 03/15/18 05:46 Prednisone Tab PO 10 mg Q6 KIMMIE Administration - Patient Studies Lab Studies: Lab Studies 03/15/18 03/15/18 03/15/18 Range/Units 08:10 07:15 07:15 WBC 9.3 D (4.5-11.0) 10^3/uL RBC 4.17 (3.5-6.1) 10^6/uL Hgb 12.3 L (14.0-18.0) g/dL Hct 36.6 L (42.0-52.0) % MCV 87.8 (80.0-105.0) fl MCH 29.5 (25.0-35.0) pg MCHC 33.6 (31.0-37.0) g/dl RDW 15.4 H (11.5-14.5) % Plt Count 147 (120.0-450.0) 10^3/uL MPV 9.9 (7.0-11.0) fl Gran % 86.3 H (50.0-68.0) % Lymph % (Auto) 8.4 L (22.0-35.0) % [place] % (Auto) 5.2 (1.0-6.0) % Eos % (Auto) 0.1 L (1.5-5.0) % Baso % (Auto) 0.0 (0.0-3.0) % Gran # 8.06 H (1.4-6.5) Lymph # (Auto) 0.8 L (1.2-3.4) [place] # (Auto) 0.5 (0.1-0.6) Eos # (Auto) 0.0 (0.0-0.7) Baso # (Auto) 0.00 (0.0-2.0) K/mm3 Neutrophils % (Manual) (50.0-70.0) % Band Neutrophils % (0-2) % Lymphocytes % (Manual) (22.0-35.0) % Monocytes % (Manual) (1.0-6.0) % Metamyelocytes % % Platelet Evaluation (NORMAL) ESR (0.00-15.0) mm/hr Sodium 136 (132-148) mmol/L Potassium 4.3 (3.6-5.0) mmol/L Chloride 101 (98-107) mmol/L Carbon Dioxide 30 (21-33) mmol/L Anion Gap 9 L (10-20) BUN 29 H (7-21) mg/dL Creatinine 0.7 L (0.8-1.5) mg/dl Est GFR ( Amer) > 60 Est GFR (Non-Af Amer) > 60 POC Glucose (mg/dL) 249 H (65-110) mg/dL Random Glucose 255 H (70-110) mg/dL Calcium 9.0 (8.4-10.5) mg/dL Phosphorus 3.6 (2.5-4.5) mg/dL Magnesium 1.8 (1.7-2.2) mg/dL Total Bilirubin 0.9 (0.2-1.3) mg/dL AST 35 (17-59) U/L ALT 116 H (7-56) U/L Alkaline Phosphatase 71 (38-126) U/L Total Creatine Kinase (35-230) U/L Troponin I ng/mL Total Protein 6.5 (5.8-8.3) g/dL Albumin 3.2 (3.0-4.8) g/dL Globulin 3.3 gm/dL Albumin/Globulin Ratio 1.0 L (1.1-1.8) 03/15/18 03/14/18 03/14/18 Range/Units 02:33 21:59 20:00 WBC (4.5-11.0) 10^3/uL RBC (3.5-6.1) 10^6/uL Hgb (14.0-18.0) g/dL Hct (42.0-52.0) % MCV (80.0-105.0) fl MCH (25.0-35.0) pg MCHC (31.0-37.0) g/dl RDW (11.5-14.5) % Plt Count (120.0-450.0) 10^3/uL MPV (7.0-11.0) fl Gran % (50.0-68.0) % Lymph % (Auto) (22.0-35.0) % [place] % (Auto) (1.0-6.0) % Eos % (Auto) (1.5-5.0) % Baso % (Auto) (0.0-3.0) % Gran # (1.4-6.5) Lymph # (Auto) (1.2-3.4) [place] # (Auto) (0.1-0.6) Eos # (Auto) (0.0-0.7) Baso # (Auto) (0.0-2.0) K/mm3 Neutrophils % (Manual) (50.0-70.0) % Band Neutrophils % (0-2) % Lymphocytes % (Manual) (22.0-35.0) % Monocytes % (Manual) (1.0-6.0) % Metamyelocytes % % Platelet Evaluation (NORMAL) ESR (0.00-15.0) mm/hr Sodium (132-148) mmol/L Potassium (3.6-5.0) mmol/L Chloride (98-107) mmol/L Carbon Dioxide (21-33) mmol/L Anion Gap (10-20) BUN (7-21) mg/dL Creatinine (0.8-1.5) mg/dl Est GFR ( Amer) Est GFR (Non-Af Amer) POC Glucose (mg/dL) 277 H 409 H* (65-110) mg/dL Random Glucose (70-110) mg/dL Calcium (8.4-10.5) mg/dL Phosphorus (2.5-4.5) mg/dL Magnesium (1.7-2.2) mg/dL Total Bilirubin (0.2-1.3) mg/dL AST (17-59) U/L ALT (7-56) U/L Alkaline Phosphatase (38-126) U/L Total Creatine Kinase (35-230) U/L Troponin I 0.13 H* ng/mL Total Protein (5.8-8.3) g/dL Albumin (3.0-4.8) g/dL Globulin gm/dL Albumin/Globulin Ratio (1.1-1.8) 03/14/18 03/14/18 Range/Units 15:00 15:00 WBC 12.2 H D (4.5-11.0) 10^3/uL RBC 4.74 (3.5-6.1) 10^6/uL Hgb 14.0 D (14.0-18.0) g/dL Hct 42.0 (42.0-52.0) % MCV 88.6 (80.0-105.0) fl MCH 29.5 (25.0-35.0) pg MCHC 33.3 (31.0-37.0) g/dl RDW 15.1 H (11.5-14.5) % Plt Count 171 (120.0-450.0) 10^3/uL MPV 10.2 (7.0-11.0) fl Gran % 92.6 H (50.0-68.0) % Lymph % (Auto) 5.1 L (22.0-35.0) % [place] % (Auto) 2.1 (1.0-6.0) % Eos % (Auto) 0.1 L (1.5-5.0) % Baso % (Auto) 0.1 (0.0-3.0) % Gran # 11.26 H (1.4-6.5) Lymph # (Auto) 0.6 L (1.2-3.4) [place] # (Auto) 0.3 (0.1-0.6) Eos # (Auto) 0.0 (0.0-0.7) Baso # (Auto) 0.01 (0.0-2.0) K/mm3 Neutrophils % (Manual) 87 H (50.0-70.0) % Band Neutrophils % 2 (0-2) % Lymphocytes % (Manual) 5 L (22.0-35.0) % Monocytes % (Manual) 5 (1.0-6.0) % Metamyelocytes % 1 % Platelet Evaluation Normal (NORMAL) ESR 20 H (0.00-15.0) mm/hr Sodium 137 (132-148) mmol/L Potassium 5.2 H (3.6-5.0) mmol/L Chloride 100 (98-107) mmol/L Carbon Dioxide 29 (21-33) mmol/L Anion Gap 13 (10-20) BUN 28 H (7-21) mg/dL Creatinine 0.8 (0.8-1.5) mg/dl Est GFR ( Amer) > 60 Est GFR (Non-Af Amer) > 60 POC Glucose (mg/dL) (65-110) mg/dL Random Glucose 395 H* D (70-110) mg/dL Calcium 9.7 (8.4-10.5) mg/dL Phosphorus (2.5-4.5) mg/dL Magnesium (1.7-2.2) mg/dL Total Bilirubin 1.0 (0.2-1.3) mg/dL AST 54 (17-59) U/L ALT 144 H (7-56) U/L Alkaline Phosphatase 97 (38-126) U/L Total Creatine Kinase 96 (35-230) U/L Troponin I ng/mL Total Protein 6.3 (5.8-8.3) g/dL Albumin 3.6 (3.0-4.8) g/dL Globulin 2.7 gm/dL Albumin/Globulin Ratio 1.3 (1.1-1.8) Laboratory Results - last 24 hr 03/14/18 03/14/18 03/14/18 15:00 15:00 20:00 WBC 12.2 H D RBC 4.74 Hgb 14.0 D Hct 42.0 MCV 88.6 MCH 29.5 MCHC 33.3 RDW 15.1 H Plt Count 171 MPV 10.2 Gran % 92.6 H Lymph % (Auto) 5.1 L [place] % (Auto) 2.1 Eos % (Auto) 0.1 L Baso % (Auto) 0.1 Gran # 11.26 H Lymph # (Auto) 0.6 L [place] # (Auto) 0.3 Eos # (Auto) 0.0 Baso # (Auto) 0.01 Neutrophils % (Manual) 87 H Band Neutrophils % 2 Lymphocytes % (Manual) 5 L Monocytes % (Manual) 5 Metamyelocytes % 1 Platelet Evaluation Normal ESR 20 H Sodium 137 Potassium 5.2 H Chloride 100 Carbon Dioxide 29 Anion Gap 13 BUN 28 H Creatinine 0.8 Est GFR ( Amer) > 60 Est GFR (Non-Af Amer) > 60 POC Glucose (mg/dL) Random Glucose 395 H* D Calcium 9.7 Phosphorus Magnesium Total Bilirubin 1.0 AST 54 ALT 144 H Alkaline Phosphatase 97 Total Creatine Kinase 96 Troponin I 0.13 H* Total Protein 6.3 Albumin 3.6 Globulin 2.7 Albumin/Globulin Ratio 1.3 03/14/18 03/15/18 03/15/18 21:59 02:33 07:15 WBC 9.3 D RBC 4.17 Hgb 12.3 L Hct 36.6 L MCV 87.8 MCH 29.5 MCHC 33.6 RDW 15.4 H Plt Count 147 MPV 9.9 Gran % 86.3 H Lymph % (Auto) 8.4 L [place] % (Auto) 5.2 Eos % (Auto) 0.1 L Baso % (Auto) 0.0 Gran # 8.06 H Lymph # (Auto) 0.8 L [place] # (Auto) 0.5 Eos # (Auto) 0.0 Baso # (Auto) 0.00 Neutrophils % (Manual) Band Neutrophils % Lymphocytes % (Manual) Monocytes % (Manual) Metamyelocytes % Platelet Evaluation ESR Sodium Potassium Chloride Carbon Dioxide Anion Gap BUN Creatinine Est GFR ( Amer) Est GFR (Non-Af Amer) POC Glucose (mg/dL) 409 H* 277 H Random Glucose Calcium Phosphorus Magnesium Total Bilirubin AST ALT Alkaline Phosphatase Total Creatine Kinase Troponin I Total Protein Albumin Globulin Albumin/Globulin Ratio 03/15/18 03/15/18 07:15 08:10 WBC RBC Hgb Hct MCV MCH MCHC RDW Plt Count MPV Gran % Lymph % (Auto) [place] % (Auto) Eos % (Auto) Baso % (Auto) Gran # Lymph # (Auto) [place] # (Auto) Eos # (Auto) Baso # (Auto) Neutrophils % (Manual) Band Neutrophils % Lymphocytes % (Manual) Monocytes % (Manual) Metamyelocytes % Platelet Evaluation ESR Sodium 136 Potassium 4.3 Chloride 101 Carbon Dioxide 30 Anion Gap 9 L BUN 29 H Creatinine 0.7 L Est GFR ( Amer) > 60 Est GFR (Non-Af Amer) > 60 POC Glucose (mg/dL) 249 H Random Glucose 255 H Calcium 9.0 Phosphorus 3.6 Magnesium 1.8 Total Bilirubin 0.9 AST 35 ALT 116 H Alkaline Phosphatase 71 Total Creatine Kinase Troponin I Total Protein 6.5 Albumin 3.2 Globulin 3.3 Albumin/Globulin Ratio 1.0 L Radiology Impressions: Radiology Impressions Chest X-Ray 03/14/18 14:19 IMPRESSION: No active disease. EKG/Cardiology Studies: Cardiology / EKG Studies 03/14/18 14:20 EKG [ELECTROCARDIOGRAM] Stat Comment: Reason For Exam: r/o arrhythmia Fingerstick Blood Sugar Results: 409 Review of Systems - Review of Systems Review of Systems: except as mentioned in HPI Critical Care Progress Note - Ventilator Checklist Head of Bed 30 Degrees: Yes PUD Prophalyxis: Yes DVT Prophylaxis: Yes - Nutrition Nutrition: Nutrition Category Date Time Status Heart Healthy Diet [DIET] Diets 03/14/18 Breakfast Active Assessment/Plan - Assessment and Plan (Free Text) Assessment: 72 year old male with a past medical history significant for 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 EKG showed atrial fibrillation with RVR with HR of 187. Plan: Neuro: Polymyositis with multiple falls -AAOx3, no FND -Muscle biopsy in 12/2017 confirms polymyositis. -Continue home prednisone 10 mg QID -Continue IVIG as recommended by Dr. Swanson, Neurology. -Right foot X ray: no fractures as read by me -Duplex ultrasound of bilateral lower extremities to rule out DVT shows no DVTs. -Monitor neuro status. -Reorient patient as necessary. Cardio: Atrial Fibrillation -IR IR, normotensive -EKG 03/14: atrial fibrillation with RBR with HR: 187 -Troponin level ordered -Cardizem drip continued at 5 mg/hr -Enoxaparin 40 mg daily for anticoagulation. Due to patient's history of falls, Dr. Nino, Cardiology, recommends holding off on therapeutic anticoagulation. -Maintain MAP>65. -Monitor for S/S, HD compromise. CAD -Continue home aspirin and plavix. -Home metoprolol held due to cardizem drip. Bilateral lower extremity edema -Echocardiogram results unknown. Will follow up this AM -Lasix 20 mg IV daily -Dr. Zhu, Cardiology, consulted for recommendations. Please follow recommendations. Pulm: -No signs of respiratory distress. CTA B/L -Patient is stating well on room air. -Maintain O2 saturation>95%. -O2 NC PRN -Elevate bed to 30 degrees GI: Diet -Heart health diet GI prophylaxis -Protonix 40 mg daily necessary due to chronic prednisone use. Isolated elevated ALT -ALT: improved to 116 -Continue to monitor /Nephro: -BUN/Cr stable at 29/0.7 -Good urine output -Hyperkalemia resolved -Replete electrolytes as needed. -Maintain euvolemia. Endocrinology: Diabetes mellitus type II -Random glucose: 395 -High SSI -Obtain euglycemia. Heme/Onc: -H/H stable at 12.3/36.6 -No signs of HD compromise. -Continue monitoring H/H DVT prophylaxis -Enoxaparin 40 mg daily ID: -Afebrile, no leukocytosis -Monitor for signs and symptoms of infection. Patient seen and examined with Ara. - Date & Time Date: 03/15/18 Time: 09:14 <Alonso Bullock - Last Filed: 03/15/18 10:49> CCU Objective - Vital Signs / Intake & Output Vital Signs (Last 4 hours): Vital Signs BP 03/15/18 09:35 140/74 Intake and Output (Last 8hrs): Intake & Output 03/14/18 03/15/18 03/15/18 22:59 06:59 14:59 Intake Total 320 Output Total 1600 Balance -1280 Weight 251 lb 12.8 oz 251 lb 12.8 oz Intake: IV 200 Right Antecubital 100 Oral 120 Output: Urine 1600 Urine, Voided 1600 Other: Voiding Method Urinal - Medications Active Medications: Active Medications Generic Name Dose Route Start Last Admin Trade Name Freq PRN Reason Stop Dose Admin Acetaminophen 650 mg 03/15/18 10:47 Tylenol 325mg Tab PO 03/15/18 10:48 STAT STA Aspirin 81 mg 03/15/18 10:00 03/15/18 09:32 Ecotrin PO 81 mg DAILY KIMMIE Administration Cholecalciferol 2,000 intlu 03/15/18 10:00 03/15/18 09:38 Vitamin D PO 2,000 intlu DAILY KIMMIE Administration Clopidogrel Bisulfate 75 mg 03/15/18 10:00 03/15/18 09:36 Plavix PO 75 mg DAILY KIM[facility]E Administration Dextrose 0 ml 03/14/18 17:47 Dextrose 50% Inj IV STAT PRN Hypoglycemia Protocol Protocol Diphenhydramine HCl 50 mg 03/15/18 10:46 Benadryl PO 03/15/18 10:47 STAT STA Enoxaparin Sodium 40 mg 03/15/18 10:00 03/15/18 09:35 Lovenox SC 40 mg DAILY KIMMIE Administration Protocol Furosemide 20 mg 03/15/18 10:00 03/15/18 09:35 Lasix IVP 20 mg DAILY KIMMIE Administration Immune Globulin 50 gm/ 500 mls @ 0 mls/hr 03/14/18 15:45 03/15/18 10:21 Miscellaneous IV 03/16/18 23:59 500 mls/hr DAILY KIMMIE Administration Per Protocol diltiaZEM IVPB 100mg in NS 100 mls @ 5 mls/hr 03/14/18 16:34 03/15/18 05:14 Cardizem 100mg In Ns IV 15 mg/hr .Q20H PRN 15 mls/hr TITRATE PER MD ORDER Administration Protocol 5 MG/HR Dextrose 1,000 mls @ 0 mls/hr 03/14/18 17:47 Dextrose 5% In Water 1000 Ml IV .Q0M PRN Hypoglycemia Protocol Protocol Per Protocol Insulin Human Regular 0 units 03/15/18 11:30 Humulin R High SC ACHS K[facility]E Protocol Pantoprazole Sodium 40 mg 03/15/18 10:00 03/15/18 09:37 Protonix Ec Tab PO 40 mg DAILY [facility]E Administration Prednisone 10 mg 03/15/18 00:00 03/15/18 05:46 Prednisone Tab PO 10 mg Q6 KIMMIE Administration - Patient Studies Lab Studies: Lab Studies 03/15/18 03/15/18 03/15/18 Range/Units 08:10 07:15 07:15 WBC 9.3 D (4.5-11.0) 10^3/uL RBC 4.17 (3.5-6.1) 10^6/uL Hgb 12.3 L (14.0-18.0) g/dL Hct 36.6 L (42.0-52.0) % MCV 87.8 (80.0-105.0) fl MCH 29.5 (25.0-35.0) pg MCHC 33.6 (31.0-37.0) g/dl RDW 15.4 H (11.5-14.5) % Plt Count 147 (120.0-450.0) 10^3/uL MPV 9.9 (7.0-11.0) fl Gran % 86.3 H (50.0-68.0) % Lymph % (Auto) 8.4 L (22.0-35.0) % [place] % (Auto) 5.2 (1.0-6.0) % Eos % (Auto) 0.1 L (1.5-5.0) % Baso % (Auto) 0.0 (0.0-3.0) % Gran # 8.06 H (1.4-6.5) Lymph # (Auto) 0.8 L (1.2-3.4) [place] # (Auto) 0.5 (0.1-0.6) Eos # (Auto) 0.0 (0.0-0.7) Baso # (Auto) 0.00 (0.0-2.0) K/mm3 Neutrophils % (Manual) (50.0-70.0) % Band Neutrophils % (0-2) % Lymphocytes % (Manual) (22.0-35.0) % Monocytes % (Manual) (1.0-6.0) % Metamyelocytes % % Platelet Evaluation (NORMAL) ESR (0.00-15.0) mm/hr Sodium 136 (132-148) mmol/L Potassium 4.3 (3.6-5.0) mmol/L Chloride 101 (98-107) mmol/L Carbon Dioxide 30 (21-33) mmol/L Anion Gap 9 L (10-20) BUN 29 H (7-21) mg/dL Creatinine 0.7 L (0.8-1.5) mg/dl Est GFR ( Amer) > 60 Est GFR (Non-Af Amer) > 60 POC Glucose (mg/dL) 249 H (65-110) mg/dL Random Glucose 255 H (70-110) mg/dL Calcium 9.0 (8.4-10.5) mg/dL Phosphorus 3.6 (2.5-4.5) mg/dL Magnesium 1.8 (1.7-2.2) mg/dL Total Bilirubin 0.9 (0.2-1.3) mg/dL AST 35 (17-59) U/L ALT 116 H (7-56) U/L Alkaline Phosphatase 71 (38-126) U/L Total Creatine Kinase (35-230) U/L Troponin I ng/mL Total Protein 6.5 (5.8-8.3) g/dL Albumin 3.2 (3.0-4.8) g/dL Globulin 3.3 gm/dL Albumin/Globulin Ratio 1.0 L (1.1-1.8) 03/15/18 03/14/18 03/14/18 Range/Units 02:33 21:59 20:00 WBC (4.5-11.0) 10^3/uL RBC (3.5-6.1) 10^6/uL Hgb (14.0-18.0) g/dL Hct (42.0-52.0) % MCV (80.0-105.0) fl MCH (25.0-35.0) pg MCHC (31.0-37.0) g/dl RDW (11.5-14.5) % Plt Count (120.0-450.0) 10^3/uL MPV (7.0-11.0) fl Gran % (50.0-68.0) % Lymph % (Auto) (22.0-35.0) % [place] % (Auto) (1.0-6.0) % Eos % (Auto) (1.5-5.0) % Baso % (Auto) (0.0-3.0) % Gran # (1.4-6.5) Lymph # (Auto) (1.2-3.4) [place] # (Auto) (0.1-0.6) Eos # (Auto) (0.0-0.7) Baso # (Auto) (0.0-2.0) K/mm3 Neutrophils % (Manual) (50.0-70.0) % Band Neutrophils % (0-2) % Lymphocytes % (Manual) (22.0-35.0) % Monocytes % (Manual) (1.0-6.0) % Metamyelocytes % % Platelet Evaluation (NORMAL) ESR (0.00-15.0) mm/hr Sodium (132-148) mmol/L Potassium (3.6-5.0) mmol/L Chloride (98-107) mmol/L Carbon Dioxide (21-33) mmol/L Anion Gap (10-20) BUN (7-21) mg/dL Creatinine (0.8-1.5) mg/dl Est GFR ( Amer) Est GFR (Non-Af Amer) POC Glucose (mg/dL) 277 H 409 H* (65-110) mg/dL Random Glucose (70-110) mg/dL Calcium (8.4-10.5) mg/dL Phosphorus (2.5-4.5) mg/dL Magnesium (1.7-2.2) mg/dL Total Bilirubin (0.2-1.3) mg/dL AST (17-59) U/L ALT (7-56) U/L Alkaline Phosphatase (38-126) U/L Total Creatine Kinase (35-230) U/L Troponin I 0.13 H* ng/mL Total Protein (5.8-8.3) g/dL Albumin (3.0-4.8) g/dL Globulin gm/dL Albumin/Globulin Ratio (1.1-1.8) 03/14/18 03/14/18 Range/Units 15:00 15:00 WBC 12.2 H D (4.5-11.0) 10^3/uL RBC 4.74 (3.5-6.1) 10^6/uL Hgb 14.0 D (14.0-18.0) g/dL Hct 42.0 (42.0-52.0) % MCV 88.6 (80.0-105.0) fl MCH 29.5 (25.0-35.0) pg MCHC 33.3 (31.0-37.0) g/dl RDW 15.1 H (11.5-14.5) % Plt Count 171 (120.0-450.0) 10^3/uL MPV 10.2 (7.0-11.0) fl Gran % 92.6 H (50.0-68.0) % Lymph % (Auto) 5.1 L (22.0-35.0) % [place] % (Auto) 2.1 (1.0-6.0) % Eos % (Auto) 0.1 L (1.5-5.0) % Baso % (Auto) 0.1 (0.0-3.0) % Gran # 11.26 H (1.4-6.5) Lymph # (Auto) 0.6 L (1.2-3.4) [place] # (Auto) 0.3 (0.1-0.6) Eos # (Auto) 0.0 (0.0-0.7) Baso # (Auto) 0.01 (0.0-2.0) K/mm3 Neutrophils % (Manual) 87 H (50.0-70.0) % Band Neutrophils % 2 (0-2) % Lymphocytes % (Manual) 5 L (22.0-35.0) % Monocytes % (Manual) 5 (1.0-6.0) % Metamyelocytes % 1 % Platelet Evaluation Normal (NORMAL) ESR 20 H (0.00-15.0) mm/hr Sodium 137 (132-148) mmol/L Potassium 5.2 H (3.6-5.0) mmol/L Chloride 100 (98-107) mmol/L Carbon Dioxide 29 (21-33) mmol/L Anion Gap 13 (10-20) BUN 28 H (7-21) mg/dL Creatinine 0.8 (0.8-1.5) mg/dl Est GFR ( Amer) > 60 Est GFR (Non-Af Amer) > 60 POC Glucose (mg/dL) (65-110) mg/dL Random Glucose 395 H* D (70-110) mg/dL Calcium 9.7 (8.4-10.5) mg/dL Phosphorus (2.5-4.5) mg/dL Magnesium (1.7-2.2) mg/dL Total Bilirubin 1.0 (0.2-1.3) mg/dL AST 54 (17-59) U/L ALT 144 H (7-56) U/L Alkaline Phosphatase 97 (38-126) U/L Total Creatine Kinase 96 (35-230) U/L Troponin I ng/mL Total Protein 6.3 (5.8-8.3) g/dL Albumin 3.6 (3.0-4.8) g/dL Globulin 2.7 gm/dL Albumin/Globulin Ratio 1.3 (1.1-1.8) Laboratory Results - last 24 hr 03/14/18 03/14/18 03/14/18 15:00 15:00 20:00 WBC 12.2 H D RBC 4.74 Hgb 14.0 D Hct 42.0 MCV 88.6 MCH 29.5 MCHC 33.3 RDW 15.1 H Plt Count 171 MPV 10.2 Gran % 92.6 H Lymph % (Auto) 5.1 L [place] % (Auto) 2.1 Eos % (Auto) 0.1 L Baso % (Auto) 0.1 Gran # 11.26 H Lymph # (Auto) 0.6 L [place] # (Auto) 0.3 Eos # (Auto) 0.0 Baso # (Auto) 0.01 Neutrophils % (Manual) 87 H Band Neutrophils % 2 Lymphocytes % (Manual) 5 L Monocytes % (Manual) 5 Metamyelocytes % 1 Platelet Evaluation Normal ESR 20 H Sodium 137 Potassium 5.2 H Chloride 100 Carbon Dioxide 29 Anion Gap 13 BUN 28 H Creatinine 0.8 Est GFR ( Amer) > 60 Est GFR (Non-Af Amer) > 60 POC Glucose (mg/dL) Random Glucose 395 H* D Calcium 9.7 Phosphorus Magnesium Total Bilirubin 1.0 AST 54 ALT 144 H Alkaline Phosphatase 97 Total Creatine Kinase 96 Troponin I 0.13 H* Total Protein 6.3 Albumin 3.6 Globulin 2.7 Albumin/Globulin Ratio 1.3 03/14/18 03/15/18 03/15/18 21:59 02:33 07:15 WBC 9.3 D RBC 4.17 Hgb 12.3 L Hct 36.6 L MCV 87.8 MCH 29.5 MCHC 33.6 RDW 15.4 H Plt Count 147 MPV 9.9 Gran % 86.3 H Lymph % (Auto) 8.4 L [place] % (Auto) 5.2 Eos % (Auto) 0.1 L Baso % (Auto) 0.0 Gran # 8.06 H Lymph # (Auto) 0.8 L [place] # (Auto) 0.5 Eos # (Auto) 0.0 Baso # (Auto) 0.00 Neutrophils % (Manual) Band Neutrophils % Lymphocytes % (Manual) Monocytes % (Manual) Metamyelocytes % Platelet Evaluation ESR Sodium Potassium Chloride Carbon Dioxide Anion Gap BUN Creatinine Est GFR ( Amer) Est GFR (Non-Af Amer) POC Glucose (mg/dL) 409 H* 277 H Random Glucose Calcium Phosphorus Magnesium Total Bilirubin AST ALT Alkaline Phosphatase Total Creatine Kinase Troponin I Total Protein Albumin Globulin Albumin/Globulin Ratio 03/15/18 03/15/18 07:15 08:10 WBC RBC Hgb Hct MCV MCH MCHC RDW Plt Count MPV Gran % Lymph % (Auto) [place] % (Auto) Eos % (Auto) Baso % (Auto) Gran # Lymph # (Auto) [place] # (Auto) Eos # (Auto) Baso # (Auto) Neutrophils % (Manual) Band Neutrophils % Lymphocytes % (Manual) Monocytes % (Manual) Metamyelocytes % Platelet Evaluation ESR Sodium 136 Potassium 4.3 Chloride 101 Carbon Dioxide 30 Anion Gap 9 L BUN 29 H Creatinine 0.7 L Est GFR ( Amer) > 60 Est GFR (Non-Af Amer) > 60 POC Glucose (mg/dL) 249 H Random Glucose 255 H Calcium 9.0 Phosphorus 3.6 Magnesium 1.8 Total Bilirubin 0.9 AST 35 ALT 116 H Alkaline Phosphatase 71 Total Creatine Kinase Troponin I Total Protein 6.5 Albumin 3.2 Globulin 3.3 Albumin/Globulin Ratio 1.0 L Radiology Impressions: Radiology Impressions Chest X-Ray 03/14/18 14:19 IMPRESSION: No active disease. Extremity Ultrasound 03/14/18 17:51 IMPRESSION: No sonographic evidence for deep venous thrombosis in the visualized segments of both lower extremities. EKG/Cardiology Studies: Cardiology / EKG Studies 03/14/18 14:20 EKG [ELECTROCARDIOGRAM] Stat Comment: Reason For Exam: r/o arrhythmia Critical Care Progress Note - Nutrition Nutrition: Nutrition Category Date Time Status Heart Healthy Diet [DIET] Diets 03/14/18 Breakfast Active Attending/Attestation - Attestation I have personally seen and examined this patient.: Yes I have fully participated in the care of the patient.: Yes I have reviewed all pertinent clinical information: Yes Notes (Text): 03/15/18 10:47 The patient was seen and examined at the bedside. Patient care was discussed with resident Medical records, lab studies were reviewed and management issues were discussed and formulated. Agree with above treatment plans as outlined in 's note with addition of the following: Afib with RVR \ Polymyositis \ DM 2 \ Elevated LFT \ ho CAD \ -hemodynamic monitoring to maintain MAP>65 -continue cardizem drip for rate control as per cardiology team -continue ASA and Plavix -f\u Echo -o2 supplementation to maintain Spo2>90 Pao2>60; currently deescalated to room air -f\u fever curve and monitor cultures -f\u Bun\Cr and U\o; diuresis with lasix -PO diet as tolerated and aspiration precautions -ISS and BGM monitoring -continue steroids and IVIG as per neurology team -anticoagulation as per primary team as pt has h\o multiple falls -LE duplex negative for DVT -Xray of right foot -DVT prophylaxis CCM time 30min
--- NOTE | 2018-03-15 09:18 | US ---
HISTORY: Leg pain and swelling. Evaluate for DVT PHYSICIAN(S): Christian Hinojosa MD. TECHNIQUE: Duplex sonography and color-flow Doppler with graded compression were used to evaluate the deep venous systems of both lower extremities. The exam is limited by edema. FINDINGS: The visualized deep venous systems of both lower extremities are sonographically normal and compressible. Normal wave forms and augmentation are seen. There is no sonographic evidence for deep venous thrombosis in the visualized segments of both lower extremities. IMPRESSION: No sonographic evidence for deep venous thrombosis in the visualized segments of both lower extremities.
[2018-03-15] MEDS: Pantoprazole 40 mg EC Tab PO SCH (09:37)
[2018-03-15] MEDS: Cholecalciferol 1,000 INTLU TAB PO SCH (09:38)
[2018-03-15] MEDS ORDERED: Enoxaparin 40 mg Syringe SC SCH (10:00)
--- NOTE | 2018-03-15 10:13 | CP.PCM.PN ---
<Edwin Garcia - Last Filed: 03/15/18 15:18> Subjective - Date & Time of Evaluation Date of Evaluation: 03/15/18 Time of Evaluation: 10:10 - Subjective Subjective: Neurology Progress Note: Patient seen and assessed at bedside in ICU. No acute events overnight noted. Patient reports that his weakness has improved if only slightly. Further 12 point ROS unremarkable. Objective - Vital Signs/Intake and Output Vital Signs (last 24 hours): Temp Pulse Resp BP Pulse Ox 98.3 F 101 H 21 140/74 95 03/15/18 04:00 03/15/18 04:00 03/14/18 22:20 03/15/18 09:35 03/14/18 21:02 Intake and Output: 03/15/18 03/15/18 06:59 18:59 Intake Total 320 Output Total 1600 Balance -1280 - Medications Medications: Current Medications Aspirin (Ecotrin) 81 mg PO DAILY [facility] Last Admin: 03/15/18 09:32 Dose: 81 mg Cholecalciferol (Vitamin D) 2,000 intlu PO DAILY [facility] Last Admin: 03/15/18 09:38 Dose: 2,000 intlu Clopidogrel Bisulfate (Plavix) 75 mg PO DAILY [facility] Last Admin: 03/15/18 09:36 Dose: 75 mg Dextrose (Dextrose 50% Inj) 0 ml IV STAT PRN; Protocol PRN Reason: Hypoglycemia Protocol Enoxaparin Sodium (Lovenox) 40 mg SC DAILY [facility]; Protocol Last Admin: 03/15/18 09:35 Dose: 40 mg Furosemide (Lasix) 20 mg IVP DAILY [facility] Last Admin: 03/15/18 09:35 Dose: 20 mg Immune Globulin 50 gm/ (Miscellaneous) 500 mls @ 0 mls/hr IV DAILY [facility] Stop: 03/16/18 23:59 Last Admin: 03/14/18 17:38 Dose: 500 mls/hr diltiaZEM IVPB 100mg in NS (Cardizem 100mg In Ns) 100 mls @ 5 mls/hr IV .Q20H PRN; Protocol PRN Reason: TITRATE PER MD ORDER Last Admin: 03/15/18 05:14 Dose: 15 mg/hr, 15 mls/hr Dextrose (Dextrose 5% In Water 1000 Ml) 1,000 mls @ 0 mls/hr IV .Q0M PRN; Protocol PRN Reason: Hypoglycemia Protocol Insulin Human Regular (Humulin R High) 0 units SC ACHS [facility]; Protocol Pantoprazole Sodium (Protonix Ec Tab) 40 mg PO DAILY [facility] Last Admin: 03/15/18 09:37 Dose: 40 mg Prednisone (Prednisone Tab) 10 mg PO Q6 [facility] Last Admin: 03/15/18 05:46 Dose: 10 mg - Labs Labs: 03/15/18 07:15 03/15/18 07:15 - Constitutional Appears: No Acute Distress - Head Exam Head Exam: ATRAUMATIC, NORMOCEPHALIC - Eye Exam Eye Exam: EOMI, Normal appearance, PERRL. absent: Conjunctival injection, Nystagmus, Periorbital swelling, Periorbital tenderness, Scleral icterus Pupil Exam: NORMAL ACCOMODATION - ENT Exam ENT Exam: Mucous Membranes Moist - Respiratory Exam Respiratory Exam: NORMAL BREATHING PATTERN. absent: Accessory Muscle Use, Resp iratory Distress - Cardiovascular Exam Cardiovascular Exam: Tachycardia - GI/Abdominal Exam GI & Abdominal Exam: Soft, Normal Bowel Sounds. absent: Tenderness - Extremities Exam Extremities Exam: Pedal Edema (2+ pitting edema bilaterally extending to knee) - Neurological Exam Neurological Exam: Alert, Awake, CN II-XII Intact, Oriented x3 Additional comments: Distal muscle groups of upper extremities: 5/5 bilaterally Deltoids: 4/5 bilaterally Proximal lower extremity muscle groups: 1/5 bilaterally Distal lower extremity muscle groups: 3/5 bilaterally Sensation to all extremities intact - Psychiatric Exam Psychiatric exam: Normal Affect, Normal Mood - Skin Skin Exam: Dry, Warm Assessment and Plan - Assessment and Plan (Free Text) Assessment: 72 year old male with a past medical history significant for Polymyositis (Biopsy proven 12/2017), CAD s/p 5 SUZIE, HTN, Hypothyroidism and DM2 who presented from his Neurologist's office worsening Polymyositis and IVIG inf usion. Plan: -IVIG 50g daily(Approximately 2000mg/kg/treatment course divided over 3-5 days; Currently day 2/3-5) -Will need Echocardiogram with BUBBLE STUDY if patient did not have this done as an outpatient to rule out PFO -Recommend patient be anticoagulated for stroke prevention despite risk of falls as his ability to ambulate is currently minimal and is progressively declining -Continue PT -Patient to follow up with his neurologist as an outpatient upon discharge -Further recommendations as per Dr. Smith Patient seen and case discussed with attending, Dr. Smith. Edwin Garcia PGY2 <Jeancarlos Smith - Last Filed: 03/21/18 17:10> Objective - Vital Signs/Intake and Output Vital Signs (last 24 hours): Temp Pulse Resp BP Pulse Ox 97.5 F L 71 20 141/69 95 03/20/18 10:28 03/21/18 14:23 03/20/18 16:29 03/21/18 14:23 03/20/18 16:29 Intake and Output: 03/21/18 03/21/18 06:59 18:59 Intake Total 2360 80 Output Total 2700 Balance -340 80 - Medications Medications: Current Medications Acetaminophen (Tylenol 325mg Tab) 650 mg PO Q6H PRN PRN Reason: Pain, moderate (4-7) Last Admin: 03/20/18 17:47 Dose: 650 mg Aspirin (Ecotrin) 81 mg PO DAILY [facility] Last Admin: 03/21/18 10:04 Dose: 81 mg Cholecalciferol (Vitamin D) 2,000 intlu PO DAILY [facility] Last Admin: 03/21/18 10:04 Dose: 2,000 intlu Clopidogrel Bisulfate (Plavix) 75 mg PO DAILY [facility] Last Admin: 03/21/18 10:03 Dose: 75 mg Dextrose (Dextrose 50% Inj) 0 ml IV STAT PRN; Protocol PRN Reason: Hypoglycemia Protocol Digoxin (Lanoxin) 0.25 mg PO 1400 [facility] Last Admin: 03/21/18 14:23 Dose: 0.25 mg Diltiazem HCl (Cardizem) 120 mg PO QID [facility] Last Admin: 03/21/18 14:23 Dose: 120 mg Enoxaparin Sodium (Lovenox) 110 mg SC BID [facility]; Protocol Last Admin: 03/21/18 10:03 Dose: 110 mg Furosemide (Lasix) 40 mg IVP DAILY [facility] Last Admin: 03/21/18 10:04 Dose: 40 mg Dextrose (Dextrose 5% In Water 1000 Ml) 1,000 mls @ 0 mls/hr IV .Q0M PRN; Protocol PRN Reason: Hypoglycemia Protocol Insulin Detemir (Levemir) 15 unit SC HS [facility] Last Admin: 03/20/18 22:01 Dose: 15 units Insulin Human Regular (Humulin R High) 0 units SC ACHS [facility]; Protocol Last Admin: 03/21/18 17:02 Dose: 10 u Pantoprazole Sodium (Protonix Ec Tab) 40 mg PO DAILY [facility] Last Admin: 03/21/18 10:06 Dose: 40 mg Prednisone (Prednisone Tab) 10 mg PO Q6 [facility] Last Admin: 03/21/18 14:25 Dose: 10 mg Sodium Chloride ([place] Nasal [place]den) 0 ml NS Q2H PRN PRN Reason: Nasal congestion Last Admin: 03/17/18 14:24 Dose: 1 spray Sotalol HCl (Betapace) 80 mg PO BID [facility] - Labs Labs: 03/20/18 05:15 03/20/18 05:15 PT 11.7 SECONDS (9.4-12.5) 03/17/18 06:00 INR 1.02 03/17/18 06:00 APTT 30.5 Seconds (25.1-36.5) 03/17/18 06:00 Attending/Attestation - Attestation I have personally seen and examined this patient.: Yes I have fully participated in the care of the patient.: Yes I have reviewed all pertinent clinical information, including history, physical exam and plan: Yes Notes (Text): I agree with the assessment and plan: -IVIG 50g daily(Approximately 2000mg/kg/treatment course divided over 3-5 days; Currently day 2/3-5) -Will need Echocardiogram with BUBBLE STUDY if patient did not have this done as an outpatient to rule out PFO -Recommend patient be anticoagulated for stroke prevention despite risk of falls as his ability to ambulate is currently minimal and is progressively declining -Continue PT -Patient to follow up with his neurologist as an outpatient upon discharge
[2018-03-15] MEDS: PREMIXED IV SCH (10:21)
[2018-03-15] MEDS: IMMUNE GLOBULIN IV SCH (10:21)
[2018-03-15] MEDS ORDERED: Digoxin 500 mcg/2ml (0.5 mg/2ml) Inj ONE ×2 (10:43→14:42)
[2018-03-15] MEDS ORDERED: Digoxin 500 mcg/2ml (0.5 mg/2ml) Inj IV ONE (10:45)
--- NOTE | 2018-03-15 11:05 | RAD ---
Date of service: 03/14/2018 PROCEDURE: Right Foot Radiographs. HISTORY: multiple falls COMPARISON: None. FINDINGS: BONES: Normal. No fracture. JOINTS: Moderate to severe degenerative changes in the 1st MTP joint. No significant angulation SOFT TISSUES: Normal. OTHER FINDINGS: None. 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 No significant angulation
[2018-03-15] MEDS: Insulin Reg-HIGH-Coverage SC SCH ×3 (13:28→22:00)
--- NOTE | 2018-03-15 16:43 | CP.PCM.PCO ---
Physician Communication Note - Physician Communication Note Physician Communication Note: Cardizem gtt now 5mg/hr,afib,rashid, rate 130-140,IV Immunoglobulin per neuro
[2018-03-15] MEDS: Digoxin 500 mcg/2ml (0.5 mg/2ml) Inj IV SCH ×2 (17:27→23:09)
[2018-03-15] MEDS: Enoxaparin 120 mg Syringe SC SCH (17:34)
--- NOTE | 2018-03-15 18:53 | HP ---
DATE OF EXAM: 03/15/2018 HISTORY OF PRESENT ILLNESS: The patient is a 72-year-old, patient of Dr. Antonio. The patient states he was having increasing leg weakness. He has multiple falls at home, somehow he made it to office, when he examined, he called Dr. Antonio and advised him to bring him to emergency room, initial differential was he might be having ALS, but in January he has muscle biopsy done that shows polymyositis. Denies any fever or chills. No history of nausea or vomiting. No hemoptysis. No hematemesis. PAST MEDICAL HISTORY: 1. Significant for polymyositis that was diagnosed by muscle biopsy in , then his biopsy was sent to [facility] and he was given diagnosis of polymyositis. 2. Coronary artery disease, status post multiple angioplasty. 3. Hypertension. 4. Hypothyroidism. 5. Rui-gdvyupx-muykcqhtb diabetes. FAMILY HISTORY: Unremarkable. ALLERGIES: HE IS ALLERGIC TO PENICILLIN. MEDICATIONS AT HOME: He is on prednisone 10 mg every 4 hours. He is on Protonix 40 daily. He is on Plavix 75 daily, vitamin D, aspirin 81 daily, and CoQ10. He is on omega-3. He is on multivitamin. He takes metoprolol 25 twice a day. He is on metformin 850 daily and ascorbic acid. SOCIAL HISTORY: He used to be heavy smoker one pack per day for 40 years and now he uses cigar once in a while. REVIEW OF SYSTEMS: Significant for generalized weakness and difficulty walking. PHYSICAL EXAMINATION: GENERAL: He is fully awake, alert, oriented, and communicative. VITAL SIGNS: He is afebrile, pulse 101, respirations 18, and blood pressure 140/74. LUNGS: Bilateral fair airflow. No rhonchi or crackle. HEART: S1 and S2 audible. ABDOMEN: Soft and nontender. No rebound. No guarding. NEUROLOGIC: The patient is awake, alert, oriented, and communicative. LABORATORY DATA: WBC is 9.3, hemoglobin is 12.3, hematocrit 36, and platelet 147. Chemistry; sodium 136, potassium 4.3, chloride 101, CO2 of 30, BUN 29, creatinine 0.7, and blood sugar 249. Troponin 0.13. X-ray of the foot [id number] degenerative changes in the first MTP joint. No significant angulation. He also has bilateral leg Doppler, negative for DVT. ASSESSMENT: 1. Polymyositis. 2. Yfd-dfhbyyq-aixlwivls diabetes. 3. Hypertension. 4. Hyperlipidemia. 5. New onset atrial fibrillation. PLAN: So currently, the patient is on diltiazem. He is on aspirin 81 daily. His blood sugar is being monitored. He is on digoxin, IV Lasix, and metoprolol. He is started on IVIG today. We will maintain him on prednisone, Plavix, Protonix, and Lyrica as needed. Echocardiogram has been ordered, we will follow that up. Follow up his CBC and CMP in a.m. Marleny Thomas MD
--- NOTE | 2018-03-15 22:32 | CON ---
DATE: 03/15/2018 REQUESTING PHYSICIAN: Dr. Antonio. REASON FOR CONSULTATION: Atrial fibrillation with rapid ventricular response. HISTORY OF PRESENT ILLNESS: This is a 72-year-old man known to us with a history of coronary artery disease, remote myocardial infraction and PCI as well as aortic stenosis, hypertension, hyperlipidemia, who was recently diagnosed with polymyositis. He has been treated with IV gammaglobulin infusion. He was sent to the emergency room from the office of his neurologist yesterday for evaluation of worsening muscle weakness and shoulder pain. He has had multiple falls in the recent past due to his apparent polymyositis. In the emergency room, he was noted be in rapid atrial fibrillation. He was started on intravenous Cardizem. His heart rate remains rapid, however. He states he does not feel well, but is not clearly aware of palpitations. He denies any chest pain or dyspnea. PAST MEDICAL HISTORY: His past history is notable for the problems mentioned above. He does have moderate aortic stenosis. He did suffer myocardial fraction in 2004 and underwent PCI of his RCA. MEDICATIONS: His current medications include IV diltiazem, Ecotrin, insulin coverage, Lasix 20 mg daily, Plavix 75 mg daily, prednisone 10 mg every 6 hours, Protonix, and Lovenox. ALLERGIES: HE HAS HAD A REACTION TO PENICILLIN IN THE PAST. SOCIAL HISTORY: He is a former smoker. He denies alcohol use. FAMILY HISTORY: Both parents are from cause unknown. REVIEW OF SYSTEMS: A 10-point review of systems is notable mainly for problems mentioned above. PHYSICAL EXAMINATION: GENERAL: He is a middle-aged man who appears somewhat anxious. VITAL SIGNS: His blood pressure is 140/70 with a pulse of 120, in atrial fibrillation; respirations are 16. He is afebrile. HEENT: Normocephalic, atraumatic. NECK: Carotid upstrokes are variable. No JVD noted. CHEST: Bilateral scattered rhonchi heard. HEART: PMI displaced laterally with a mid peaking systolic murmur at the base radiating to the carotids. ABDOMEN: Soft, nontender. Normoactive bowel sounds. EXTREMITIES: 2+ leg edema. DIAGNOSTIC DATA: Potassium is 4.3, BUN and creatinine 29 and 0.7, glucose is 255. White count 9.3, hemoglobin and hematocrit 12.3 and 36.6 with a platelet count of 147,000. Troponin is 0.13. Electrocardiogram reveals atrial fibrillation with a rapid ventricular response and right bundle-branch block pattern, secondary ST-T changes are noted. Chest x-ray reveals an increased cardiac silhouette with clear lung michael. IMPRESSION: 1. Atrial fibrillation with rapid ventricular response, suboptimal rate control therapy with IV Cardizem. 2. Moderate aortic stenosis, currently asymptomatic. 3. Polymyositis undergoing treatment at the present time. 4. The rest of problems as noted. RECOMMENDATIONS: 1. Given his suboptimal rate control, IV digoxin will be added to his regimen. Oral metoprolol will be initiated as well. Once his heart rate is better controlled, IV Cardizem will be discontinued. An echocardiogram does not need to be repeated as he had one recently performed in the office, which revealed moderate aortic stenosis, normal LV systolic function, and mild concentric LVH. 2. Continue treatment for his polymyositis as advised. IV Lasix can be administered in an attempt to improve his peripheral edema. Anticoagulation with Lovenox is appropriate, however, his ability to take oral anticoagulation upon discharge is questionable given his frequent falls and gait instability. Thank you for this consultation. We will be happy to continue to follow along through his hospital course as needed. Brown Chavarria MD
[2018-03-16] MEDS: diltiaZEM IVPB 100mg in NS 100 ML IV PRN (04:15)
[2018-03-16 06:08] LABS: GRAN # 6.81 (1.4-6.5); HEMOGLOBIN 11.7 g/dL (14.0-18.0); LYMPH # 0.7 (1.2-3.4); LYMPH % 9.2 % (22.0-35.0); MEAN CELL VOLUME 89.1 fl (80.0-105.0); MEAN CORPUSCULAR HGB CONC 32.6 g/dl (31.0-37.0); MEAN PLATELET VOLUME 9.7 fl (7.0-11.0); MONO # 0.4 (0.1-0.6); MONO % 4.8 % (1.0-6.0); RBC 4.03 10^6/uL (3.5-6.1); RED CELL DISTRIBUTION WIDTH 15.2 % (11.5-14.5); WHITE BLOOD COUNT 7.9 10^3/uL (4.5-11.0)
[2018-03-16 06:27] LABS: ALB/GLOB RATIO 0.8 (1.1-1.8); ALBUMIN 3.3 g/dL (3.0-4.8); ALT/SGPT 93 U/L (7-56); AST/SGOT 31 U/L (17-59); BLOOD UREA NITROGEN 30 mg/dL (7-21); GFR NON-AFRICAN AMERICAN > 60
[2018-03-16] MEDS: Insulin Reg-HIGH-Coverage SC SCH ×4 (08:29→22:03)
[2018-03-16 08:52] LABS: INR 0.99; PARTIAL THROMBOPLASTIN TIME 27.2 Seconds (25.1-36.5); PROTHROMBIN TIME 11.4 SECONDS (9.4-12.5)
[2018-03-16] MEDS: Pantoprazole 40 mg EC Tab PO SCH (10:26)
[2018-03-16] MEDS: Cholecalciferol 1,000 INTLU TAB PO SCH (10:26)
[2018-03-16] MEDS: Enoxaparin 120 mg Syringe SC SCH ×2 (10:27→17:35)
[2018-03-16] MEDS: PREMIXED IV SCH (11:00)
[2018-03-16] MEDS: IMMUNE GLOBULIN IV SCH (11:00)
--- NOTE | 2018-03-16 11:32 | PN ---
DATE: 03/16/2018 SUBJECTIVE: The patient is resting in bed, awake and alert. No complaints of shortness of breath, cough, wheezing, chest congestion. No chest pain. No fever, chills, nausea or vomiting. The patient is still on Cardene drip and it is being tapered down. PHYSICAL EXAMINATION: VITAL SIGNS: His temperature is 97.8, his pulse is 111, respirations are 20 and BP is 131/72. SKIN: Warm and dry. HEENT: Head atraumatic, normocephalic. Eyes reactive to light. Ears, nose, and throat seemed to be within normal limits. NECK: Supple. No JVD. No thyroid enlargement, no lymph nodes. HEART: Has regular rate and rhythm. Normal S1, S2, but tachycardic. LUNGS: Reveal decreased breath sounds at the bases. ABDOMEN: Soft, nontender, decreased bowel sounds. GENITALIA: Deferred. RECTAL: Deferred. MUSCULOSKELETAL: No joint deformities. EXTREMITIES: Reveal 2+ lower extremity edema. NEUROLOGIC: He has weakness in his lower extremities. LABORATORY DATA: Reveal a white count of 7.9, hemoglobin is 11.7, hematocrit 35.9 with platelets of 133,000. Sodium is 135, potassium 4.5, chloride 99, CO2 of 31, BUN of 30, creatinine of 0.7, and a glucose of 204. IMPRESSION: This patient has presented with atrial fibrillation and rapid ventricular response. He has lower extremity weakness secondary to polymyositis. The patient had multiple falls. He has hypertension, coronary artery disease, hypothyroidism, diabetes as well as hyperlipidemia. PLAN: We will continue with Cardene and titrate down as tolerated. The patient is on insulin for his diabetes and is getting digoxin as well. He is on Lasix, Lopressor, subcu Lovenox as well as Plavix, prednisone, Protonix, and vitamin D. We will continue to treat aggressively along with the other consultants and the primary care doctor. Phil Andrews MD
--- NOTE | 2018-03-16 12:19 | PN ---
DATE: 03/16/2018 SUBJECTIVE: The patient is seen lying in bed on telemetry. He has received an additional immunoglobulin therapy yesterday and feels somewhat better. He feels that his strength has improved. He remains in atrial fibrillation with moderate ventricular rate improved from yesterday. MEDICATIONS: He remains on diltiazem 15 mg daily, Ecotrin once daily, digoxin 0.25 mg daily, immunoglobulin, Lasix 20 mg IV daily, metoprolol 50 mg b.i.d., Lovenox 110 mg b.i.d., Plavix 75 mg daily, prednisone 10 mg every 6 hours, Protonix 40 mg daily. PHYSICAL EXAMINATION: GENERAL: He is a middle-aged man appears comfortable at rest. VITAL SIGNS: Blood pressure is 130/70 with a pulse of 110, in atrial fibrillation. Respirations are 16. He is afebrile. NECK: No JVD. Diminished carotid upstrokes. CHEST: Bilateral scattered rhonchi. HEART: PMI displaced laterally with a mid-peaking systolic murmur at the base. ABDOMEN: Soft and nontender. Normoactive bowel sounds. EXTREMITIES: 2+ leg edema present. DIAGNOSTIC DATA: Potassium 4.5, BUN and creatinine 30 and 0.7, white count 7.9, hemoglobin and hematocrit 11.7 and 35.9 with a platelet count of 133,000. IMPRESSION: 1. Recent onset atrial fibrillation with fair ventricular rate control. 2. Recent diagnosis of polymyositis, undergoing therapy with immunoglobulin and steroids. 3. Moderate aortic stenosis. 4. Coronary artery disease, status post myocardial infarction and percutaneous coronary intervention of his right coronary artery. 5. Rest of problems as noted. RECOMMENDATIONS: Metoprolol will be increased to 100 mg b.i.d. for better rate control. Intravenous diltiazem will be discontinued. Oral digoxin therapy will be continued as well. There is no need for repeat echocardiogram given his recent study performed in the office. Copy will be provided. Diuretic therapy can be intensified at this time. Lovenox will be continued for now; however, judgment will need to be made prior to discharge as to the safety and risk-benefit ratio of the anticoagulant therapy given his gait instability and fall risk. 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 We will continue to follow and make further recommendations as appropriate. Brown Chavarria MD [facility]
[2018-03-16] MEDS: Digoxin 250 mcg (0.25 mg) Tab PO SCH (13:15)
--- NOTE | 2018-03-16 13:15 | PN ---
DATE: 03/16/2018 SUBJECTIVE: The patient is a 72-year-old, seen and examined, lying in bed, seems to be comfortable. Denies any nausea, vomiting. No diarrhea. Eating and tolerating. Complaining of some pain in the right foot where he had bruise. PHYSICAL EXAMINATION: VITAL SIGNS: He is afebrile, pulse 111, respirations 20, blood pressure 149/65. LUNGS: Bilateral fair air flow. No rhonchi or crackle. HEART: S1 and S2 audible. ABDOMEN: Soft, nontender, no rebound, no guarding. NEUROLOGIC: The patient is awake, alert, oriented. Has generalized leg weakness and upper extremity weakness, difficulty walking. EXTREMITIES: Bilateral legs +2 edema. LABORATORY DATA: WBC 7.9, hemoglobin 11.7, hematocrit 35.9, platelets 133. PT 11.4, INR 0.99. Chemistry: Sodium 135, potassium 4.5, chloride 99, CO2 of 9. BUN 30, creatinine 0.7, blood sugar 274. ASSESSMENT: 1. Status post multiple falls. 2. Polymyositis. Current getting intravenous immunoglobulin. 3. Hypertension. 4. Hypothyroidism. 5. Non-insulin dependent diabetes. 6. Coronary artery disease, status post multiple angioplasties. 7. Atrial fibrillation. PLAN: The patient is getting IVIG today. Continue him on aspirin. Monitor blood sugar. He is on digoxin. Continue Lasix and metoprolol. He is on Plavix. He is getting prednisone, Protonix and will continue all that. We will follow up in a.m. Marleny Thomas MD
[2018-03-17 06:30] LABS: BASO # 0.01 K/mm3 (0.0-2.0); BASO % 0.1 % (0.0-3.0); GRAN # 5.83 (1.4-6.5); GRAN % 84.6 % (50.0-68.0); HEMOGLOBIN 11.9 g/dL (14.0-18.0); LYMPH # 0.7 (1.2-3.4); LYMPH % 10.4 % (22.0-35.0); MEAN CELL VOLUME 89.4 fl (80.0-105.0); MEAN CORPUSCULAR HEMOGLOBIN 29.3 pg (25.0-35.0); MEAN CORPUSCULAR HGB CONC 32.8 g/dl (31.0-37.0); MEAN PLATELET VOLUME 9.6 fl (7.0-11.0); MONO # 0.3 (0.1-0.6); MONO % 4.9 % (1.0-6.0); RBC 4.06 10^6/uL (3.5-6.1); RED CELL DISTRIBUTION WIDTH 15.2 % (11.5-14.5); WHITE BLOOD COUNT 6.9 10^3/uL (4.5-11.0)
[2018-03-17 06:55] LABS: ALB/GLOB RATIO 0.7 (1.1-1.8); ALBUMIN 3.3 g/dL (3.0-4.8); ALT/SGPT 85 U/L (7-56); AST/SGOT 40 U/L (17-59); BLOOD UREA NITROGEN 26 mg/dL (7-21); CALCIUM 8.6 mg/dL (8.4-10.5); GFR NON-AFRICAN AMERICAN > 60
[2018-03-17 07:54] LABS: INR 1.02; PARTIAL THROMBOPLASTIN TIME 30.5 Seconds (25.1-36.5); PROTHROMBIN TIME 11.7 SECONDS (9.4-12.5)
[2018-03-17] MEDS: Insulin Reg-HIGH-Coverage SC SCH ×4 (08:01→21:57)
--- NOTE | 2018-03-17 08:25 | PN ---
DATE: 03/17/2018 SUBJECTIVE: The patient is seen lying in bed in the ICU. He is feeling better. He continues to undergo gammaglobulin infusion for his polymyositis. He remains in atrial fibrillation with a controlled rate. CURRENT MEDICATIONS: Include Ecotrin, digoxin 0.25 mg daily, Lasix 40 mg IV daily, metoprolol 100 mg twice a day, Lovenox, Plavix 75 mg daily, prednisone 10 mg every 6 hours, Protonix. OBJECTIVE: GENERAL: He is a middle-aged man who appears comfortable at rest. VITAL SIGNS: Blood pressure 130/80 with pulse of 90 in atrial fibrillation, respirations 16. He is afebrile. HEENT: No JVD. CHEST: Few scattered rhonchi heard. HEART: Rhythm is irregularly irregular with systolic murmur at the base. ABDOMEN: Soft and nontender with normoactive bowel sounds. EXTREMITIES: 1+ leg edema. DIAGNOSTIC DATA: Recent onset atrial fibrillation which is persistent with adequate heart rate control at the present time. IMPRESSION: 1. Moderate aortic stenosis. 2. Polymyositis undergoing acute therapy. 3. Coronary artery disease status post remote myocardial fraction and percutaneous coronary intervention. RECOMMENDATIONS: Current medications will continue for now. Decision will need to be made regarding safety of long-term anticoagulant therapy upon discharge. We will make further recommendations as appropriate. Brown Chavarria MD
[2018-03-17] MEDS: Enoxaparin 120 mg Syringe SC SCH ×2 (09:21→17:24)
[2018-03-17] MEDS: Cholecalciferol 1,000 INTLU TAB PO SCH (09:21)
[2018-03-17] MEDS: Pantoprazole 40 mg EC Tab PO SCH (09:21)
--- NOTE | 2018-03-17 13:21 | PN ---
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 No complaints of shortness of breath, cough, wheezing or chest congestion. No unusual events overnight. The patient has been weaned off of his Cardizem drip and is on digoxin at this time. Heart rate is under control. PHYSICAL EXAMINATION: VITAL SIGNS: His temperature is 97.9, pulse is 105, respirations 20, and BP is 133/83. HEENT: Head is atraumatic and normocephalic. Eyes reactive to light. Ears, nose and throat seem to be within normal limits. NECK: Supple. No JVD. No thyroid enlargement or lymph nodes. HEART: Has irregular rate and rhythm. Normal S1 and S2 and no obvious murmurs. LUNGS: Reveal good breath sounds bilaterally. ABDOMEN: Soft. Decreased bowel sounds. GENITALIA: Deferred. RECTAL: Deferred. MUSCULOSKELETAL: No joint deformities. EXTREMITIES: Reveal 1-2+ lower extremity edema. NEUROLOGICALLY: He does have weakness in the lower extremities. LABORATORY DATA: His white count is 6.9, hemoglobin is 11.9, hematocrit 36.3 with platelets of 135,000. Sodium is 137, potassium 5.1, chloride 100, CO2 of 35 with BUN of 26, creatinine of 0.7 and a glucose of 220. IMPRESSION: This patient has atrial fibrillation with rapid response on presentation to the hospital. He has lower extremity weakness secondary to polymyositis and has history of multiple falls. Has hypertension, coronary artery disease, hypothyroidism, diabetes and hyperlipidemia. PLAN: Will continue with digoxin and monitor the heart rate. The patient is also getting Lasix, Lopressor, subcutaneous Lovenox, Plavix, prednisone, Protonix and vitamin D. We will continue to treat aggressively along with the other consultants and the primary care doctor. Phil Andrews MD
[2018-03-17] MEDS: Digoxin 250 mcg (0.25 mg) Tab PO SCH (14:24)
[2018-03-17] MEDS ORDERED: Digoxin 250 mcg (0.25 mg) Tab PO STA (15:37)
[2018-03-17] MEDS ORDERED: diltiaZEM IVPB 100mg in NS 100 ML IV PRN (18:18)
[2018-03-18 07:12] LABS: BASO # 0.01 K/mm3 (0.0-2.0); BASO % 0.1 % (0.0-3.0); GRAN # 6.32 (1.4-6.5); GRAN % 83.9 % (50.0-68.0); HEMOGLOBIN 11.8 g/dL (14.0-18.0); LYMPH # 0.7 (1.2-3.4); LYMPH % 9.5 % (22.0-35.0); MEAN CELL VOLUME 89.2 fl (80.0-105.0); MEAN CORPUSCULAR HEMOGLOBIN 28.9 pg (25.0-35.0); MEAN CORPUSCULAR HGB CONC 32.3 g/dl (31.0-37.0); MEAN PLATELET VOLUME 9.7 fl (7.0-11.0); MONO # 0.5 (0.1-0.6); MONO % 6.5 % (1.0-6.0); RBC 4.09 10^6/uL (3.5-6.1); RED CELL DISTRIBUTION WIDTH 15.5 % (11.5-14.5); WHITE BLOOD COUNT 7.5 10^3/uL (4.5-11.0)
[2018-03-18 07:45] LABS: ALB/GLOB RATIO 0.8 (1.1-1.8); ALBUMIN 3.3 g/dL (3.0-4.8); ALT/SGPT 96 U/L (7-56); AST/SGOT 48 U/L (17-59); BLOOD UREA NITROGEN 35 mg/dL (7-21); GFR NON-AFRICAN AMERICAN > 60
[2018-03-18] MEDS: Insulin Reg-HIGH-Coverage SC SCH ×4 (08:44→22:01)
--- NOTE | 2018-03-18 09:02 | PN ---
DATE: 03/17/2018 SUBJECTIVE: The patient is 72 years old, seen and examined, lying in bed, seems to be comfortable. He states he feels a little better after yesterday's IVIG. He is able to move his legs within the bed. His heart rate is still running in 100s. Denied any chest pain, no shortness of breath. PHYSICAL EXAMINATION: VITAL SIGNS: He is afebrile. Pulse 138, respiration 24, and blood pressure 141/70. LUNGS: Bilateral fair air flow. No rhonchi or crackle. HEART: S1 and S2, audible. ABDOMEN: Soft, obese, and nontender. No rebound. No guarding. EXTREMITIES: Right dorsum of the foot has bruise that seems to be resolving. LABORATORY DATA: WBC 6.9, hemoglobin 11.9, hematocrit 36.3, and platelet of 136. PT 11.7, INR 1.02. Chemistry; sodium 137, potassium 5.1, chloride 100, CO2 of 35, BUN 26, creatinine 0.7, and blood sugar of 233. Digoxin level is 0.6, that is subtherapeutic. ASSESSMENT: 1. Polymyositis. 2. Deconditioning, difficulty walking. 3. Status post multiple falls. 4. Right foot contusion. 5. New onset of atrial fibrillation. 6. Non-insulin dependent diabetes. PLAN: We will give him extra dose of 0.25 digoxin. He is on aspirin 81 daily. Continue him on Lasix. He is on metoprolol 100 mg twice a day. He is on Lovenox 100 mcg twice a day, needs to be monitored closely. If his AFib is not control with beta negar, he might benefit from calcium-channel negar. We will leave it up to rn wellness. Marleny Thomas MD
[2018-03-18 09:45] LABS: FREE T4 1.19 ng/dL (0.78-2.19)
[2018-03-18] MEDS: Enoxaparin 120 mg Syringe SC SCH ×2 (10:38→18:50)
[2018-03-18] MEDS: Cholecalciferol 1,000 INTLU TAB PO SCH (10:40)
[2018-03-18] MEDS: Pantoprazole 40 mg EC Tab PO SCH (10:40)
--- NOTE | 2018-03-18 14:12 | PN ---
DATE: 03/18/2018 SUBJECTIVE: The patient is seen lying in bed in the ICU. He had rapid atrial fibrillation yesterday and required resumption of IV Cardizem. He remains in atrial fibrillation with a moderate ventricular response. Otherwise, he feels fairly well. He is anxious to complete his immunoglobulin therapy for his polymyositis. CURRENT MEDICATIONS: Include IV diltiazem, Ecotrin once daily, insulin coverage, digoxin 0.25 mg daily, Lasix 40 mg daily, Levemir insulin, metoprolol 100 mg b.i.d., Lovenox 110 mg b.i.d., Plavix 75 mg daily, prednisone 10 mg every 6 hours, Protonix. OBJECTIVE: GENERAL: He is a middle-aged man who appears comfortable at rest. VITAL SIGNS: Blood pressure is 142/88 with a pulse of 100 to 110 in atrial fibrillation, respirations 16. He is afebrile. HEENT: No JVD. CHEST: Few scattered rhonchi. HEART: Rhythm is irregular regular with a systolic murmur at the base. ABDOMEN: Soft, nontender with normoactive bowel sounds. EXTREMITIES: Revealed 1+ leg edema. DIAGNOSTIC DATA: Potassium 4.3, BUN and creatinine 35 and 0.7, glucose 239. White count 7.5, hemoglobin and hematocrit 11.8 and 36.5 with platelet count 140,000. IMPRESSION: 1. Persistent atrial fibrillation with suboptimal rate control. 2. Moderate aortic stenosis. 3. Polymyositis, undergoing immunoglobulin therapy. 4. Coronary artery disease, status post remote myocardial fraction and percutaneous coronary intervention. RECOMMENDATIONS: His current medications will continue for now. Oral diltiazem will be initiated in place of intravenous infusion. Digoxin and metoprolol will be continued. A thyroid panel will be checked as well. From a cardiac standpoint, he is stable for transfer to telemetry. We will continue to follow and make further recommendations as appropriate. Brown Chavarria MD
--- NOTE | 2018-03-18 14:42 | CP.CCUPN ---
<Hunter Beard - Last Filed: 03/18/18 14:34> CCU Subjective - Physician Review Subjective (Free Text): Hunter Beard, PGY-1, ICU Progress Note for Dr. Stephenson Patient seen and evaluated at bedside. Patient denies any overnight events. Patient denies any new symptoms but continues to complain of bilateral lower extremity weakness. Patient denies chest pain, shortness of breath, nausea, vomiting, diaphoresis, left arm pain, jaw pain, heart palpitations. 12-point ROS was negative except for what was mentioned above. CCU Objective - Vital Signs / Intake & Output Vital Signs (Last 4 hours): Vital Signs Pulse BP 03/18/18 10:39 100 H 142/88 03/18/18 10:38 142/88 Intake and Output (Last 8hrs): Intake & Output 03/17/18 03/18/18 03/18/18 22:59 06:59 14:59 Intake Total 1762 458 Output Total 2100 2150 Balance -338 -1692 Weight 241 lb 14.4 oz Intake: IV 22 98 Left Hand 0 Right Forearm 80 Oral 1740 360 Output: Urine 2100 2150 Urine, Voided 2100 2150 Other: # Bowel Movements 0 - Physical Exam Head: Positive for: Atraumatic, Normocephalic Pupils: Positive for: PERRL Extroacular Muscles: Positive for: EOMI Mouth: Positive for: Moist Mucous Membranes Neck: Positive for: Normal Range of Motion Respiratory/Chest: Positive for: Clear to Auscultation Cardiovascular: Positive for: Regular Rate and Rhythm Abdomen: Positive for: Other (bruise on RUQ). Negative for: Tenderness, Distention Back: Positive for: Normal Inspection Upper Extremity: Positive for: Normal Inspection Lower Extremity: Positive for: Normal Inspection, Other (weakness of bilateral lower extremity +2/5 strength throughout) Neurological: Positive for: GCS=15, CN II-XII Intact, Speech Normal Skin: Positive for: Other (bruises present on right lower extremity, especially right foot) Psychiatric: Positive for: Alert, Oriented x 3 - Medications Active Medications: Active Medications Generic Name Dose Route Start Last Admin Trade Name Freq PRN Reason Stop Dose Admin Aspirin 81 mg 03/15/18 10:00 03/18/18 10:40 Ecotrin PO 81 mg DAILY KIMMIE Administration Cholecalciferol 2,000 intlu 03/15/18 10:00 03/18/18 10:40 Vitamin D PO 2,000 intlu DAILY KIMMIE Administration Clopidogrel Bisulfate 75 mg 03/15/18 10:00 03/18/18 10:39 Plavix PO 75 mg DAILY KIMMIE Administration Dextrose 0 ml 03/14/18 17:47 Dextrose 50% Inj IV STAT PRN Hypoglycemia Protocol Protocol Digoxin 0.25 mg 03/16/18 14:00 03/17/18 14:24 Lanoxin PO 0.25 mg 1400 KIMMIE Administration Diltiazem HCl 60 mg 03/18/18 10:00 03/18/18 10:39 Cardizem PO 60 mg QID KIMMIE Administration Enoxaparin Sodium 110 mg 03/15/18 18:00 03/18/18 10:38 Lovenox SC 110 mg BID KIMMIE Administration Protocol Furosemide 40 mg 03/16/18 09:08 03/18/18 10:38 Lasix IVP 40 mg DAILY KIMMIE Administration Dextrose 1,000 mls @ 0 mls/hr 03/14/18 17:47 Dextrose 5% In Water 1000 Ml IV .Q0M PRN Hypoglycemia Protocol Protocol Per Protocol Insulin Detemir 15 unit 03/18/18 22:00 Levemir SC HS KIMMIE Insulin Human Regular 0 units 03/15/18 11:30 03/18/18 12:35 Humulin R High SC 10 u ACHS KIMMIE Administration Protocol Metoprolol Tartrate 100 mg 03/16/18 09:07 03/18/18 08:48 Lopressor PO 100 mg BRKDIN KIMMIE Administration Pantoprazole Sodium 40 mg 03/15/18 10:00 03/18/18 10:40 Protonix Ec Tab PO 40 mg DAILY KIMMIE Administration Prednisone 10 mg 03/15/18 00:00 03/18/18 13:45 Prednisone Tab PO 10 mg Q6 KIMMIE Administration Sodium Chloride 0 ml 03/17/18 12:39 03/17/18 14:24 [place] Nasal [place] NS 1 spray Q2H PRN Administration Nasal congestion - Patient Studies Lab Studies: Lab Studies 03/18/18 03/18/18 03/18/18 Range/Units 11:12 07:33 07:20 WBC (4.5-11.0) 10^3/uL RBC (3.5-6.1) 10^6/uL Hgb (14.0-18.0) g/dL Hct (42.0-52.0) % MCV (80.0-105.0) fl MCH (25.0-35.0) pg MCHC (31.0-37.0) g/dl RDW (11.5-14.5) % Plt Count (120.0-450.0) 10^3/uL MPV (7.0-11.0) fl Gran % (50.0-68.0) % Lymph % (Auto) (22.0-35.0) % [place] % (Auto) (1.0-6.0) % Eos % (Auto) (1.5-5.0) % Baso % (Auto) (0.0-3.0) % Gran # (1.4-6.5) Lymph # (Auto) (1.2-3.4) [place] # (Auto) (0.1-0.6) Eos # (Auto) (0.0-0.7) Baso # (Auto) (0.0-2.0) K/mm3 Sodium (132-148) mmol/L Potassium (3.6-5.0) mmol/L Chloride (98-107) mmol/L Carbon Dioxide (21-33) mmol/L Anion Gap (10-20) BUN (7-21) mg/dL Creatinine (0.8-1.5) mg/dl Est GFR ( Amer) Est GFR (Non-Af Amer) POC Glucose (mg/dL) 318 H 215 H (65-110) mg/dL Random Glucose (70-110) mg/dL Calcium (8.4-10.5) mg/dL Total Bilirubin (0.2-1.3) mg/dL AST (17-59) U/L ALT (7-56) U/L Alkaline Phosphatase (38-126) U/L Total Protein (5.8-8.3) g/dL Albumin (3.0-4.8) g/dL Globulin gm/dL Albumin/Globulin Ratio (1.1-1.8) Free T4 1.19 (0.78-2.19) ng/dL TSH 3rd Generation 0.90 (0.46-4.68) mIU/mL 01/21/19 01/21/19 01/20/19 Range/Units 07:20 06:30 21:52 WBC 7.5 (4.5-11.0) 10^3/uL RBC 4.09 (3.5-6.1) 10^6/uL Hgb 11.8 L (14.0-18.0) g/dL Hct 36.5 L (42.0-52.0) % MCV 89.2 (80.0-105.0) fl MCH 28.9 (25.0-35.0) pg MCHC 32.3 (31.0-37.0) g/dl RDW 15.5 H (11.5-14.5) % Plt Count 140 (120.0-450.0) 10^3/uL MPV 9.7 (7.0-11.0) fl Gran % 83.9 H (50.0-68.0) % Lymph % (Auto) 9.5 L (22.0-35.0) % [place] % (Auto) 6.5 H (1.0-6.0) % Eos % (Auto) 0.0 L (1.5-5.0) % Baso % (Auto) 0.1 (0.0-3.0) % Gran # 6.32 (1.4-6.5) Lymph # (Auto) 0.7 L (1.2-3.4) [place] # (Auto) 0.5 (0.1-0.6) Eos # (Auto) 0.0 (0.0-0.7) Baso # (Auto) 0.01 (0.0-2.0) K/mm3 Sodium 137 (132-148) mmol/L Potassium 4.3 (3.6-5.0) mmol/L Chloride 102 (98-107) mmol/L Carbon Dioxide 34 H (21-33) mmol/L Anion Gap 6 L (10-20) BUN 35 H (7-21) mg/dL Creatinine 0.7 L (0.8-1.5) mg/dl Est GFR ( Amer) > 60 Est GFR (Non-Af Amer) > 60 POC Glucose (mg/dL) 340 H (65-110) mg/dL Random Glucose 239 H (70-110) mg/dL Calcium 9.0 (8.4-10.5) mg/dL Total Bilirubin 0.8 (0.2-1.3) mg/dL AST 48 (17-59) U/L ALT 96 H (7-56) U/L Alkaline Phosphatase 83 (38-126) U/L Total Protein 7.5 (5.8-8.3) g/dL Albumin 3.3 (3.0-4.8) g/dL Globulin 4.2 gm/dL Albumin/Globulin Ratio 0.8 L (1.1-1.8) Free T4 (0.78-2.19) ng/dL TSH 3rd Generation (0.46-4.68) mIU/mL 03/17/18 Range/Units 15:25 WBC (4.5-11.0) 10^3/uL RBC (3.5-6.1) 10^6/uL Hgb (14.0-18.0) g/dL Hct (42.0-52.0) % MCV (80.0-105.0) fl MCH (25.0-35.0) pg MCHC (31.0-37.0) g/dl RDW (11.5-14.5) % Plt Count (120.0-450.0) 10^3/uL MPV (7.0-11.0) fl Gran % (50.0-68.0) % Lymph % (Auto) (22.0-35.0) % [place] % (Auto) (1.0-6.0) % Eos % (Auto) (1.5-5.0) % Baso % (Auto) (0.0-3.0) % Gran # (1.4-6.5) Lymph # (Auto) (1.2-3.4) [place] # (Auto) (0.1-0.6) Eos # (Auto) (0.0-0.7) Baso # (Auto) (0.0-2.0) K/mm3 Sodium (132-148) mmol/L Potassium (3.6-5.0) mmol/L Chloride (98-107) mmol/L Carbon Dioxide (21-33) mmol/L Anion Gap (10-20) BUN (7-21) mg/dL Creatinine (0.8-1.5) mg/dl Est GFR ( Amer) Est GFR (Non-Af Amer) POC Glucose (mg/dL) 233 H (65-110) mg/dL Random Glucose (70-110) mg/dL Calcium (8.4-10.5) mg/dL Total Bilirubin (0.2-1.3) mg/dL AST (17-59) U/L ALT (7-56) U/L Alkaline Phosphatase (38-126) U/L Total Protein (5.8-8.3) g/dL Albumin (3.0-4.8) g/dL Globulin gm/dL Albumin/Globulin Ratio (1.1-1.8) Free T4 (0.78-2.19) ng/dL TSH 3rd Generation (0.46-4.68) mIU/mL Laboratory Results - last 24 hr 03/17/18 03/17/18 03/18/18 15:25 21:52 06:30 WBC 7.5 RBC 4.09 Hgb 11.8 L Hct 36.5 L MCV 89.2 MCH 28.9 MCHC 32.3 RDW 15.5 H Plt Count 140 MPV 9.7 Gran % 83.9 H Lymph % (Auto) 9.5 L [place] % (Auto) 6.5 H Eos % (Auto) 0.0 L Baso % (Auto) 0.1 Gran # 6.32 Lymph # (Auto) 0.7 L [place] # (Auto) 0.5 Eos # (Auto) 0.0 Baso # (Auto) 0.01 Sodium Potassium Chloride Carbon Dioxide Anion Gap BUN Creatinine Est GFR ( Amer) Est GFR (Non-Af Amer) POC Glucose (mg/dL) 233 H 340 H Random Glucose Calcium Total Bilirubin AST ALT Alkaline Phosphatase Total Protein Albumin Globulin Albumin/Globulin Ratio Free T4 TSH 3rd Generation 03/18/18 03/18/18 03/18/18 07:20 07:20 07:33 WBC RBC Hgb Hct MCV MCH MCHC RDW Plt Count MPV Gran % Lymph % (Auto) [place] % (Auto) Eos % (Auto) Baso % (Auto) Gran # Lymph # (Auto) [place] # (Auto) Eos # (Auto) Baso # (Auto) Sodium 137 Potassium 4.3 Chloride 102 Carbon Dioxide 34 H Anion Gap 6 L BUN 35 H Creatinine 0.7 L Est GFR ( Amer) > 60 Est GFR (Non-Af Amer) > 60 POC Glucose (mg/dL) 215 H Random Glucose 239 H Calcium 9.0 Total Bilirubin 0.8 AST 48 ALT 96 H Alkaline Phosphatase 83 Total Protein 7.5 Albumin 3.3 Globulin 4.2 Albumin/Globulin Ratio 0.8 L Free T4 1.19 TSH 3rd Generation 0.90 03/18/18 11:12 WBC RBC Hgb Hct MCV MCH MCHC RDW Plt Count MPV Gran % Lymph % (Auto) [place] % (Auto) Eos % (Auto) Baso % (Auto) Gran # Lymph # (Auto) [place] # (Auto) Eos # (Auto) Baso # (Auto) Sodium Potassium Chloride Carbon Dioxide Anion Gap BUN Creatinine Est GFR ( Amer) Est GFR (Non-Af Amer) POC Glucose (mg/dL) 318 H Random Glucose Calcium Total Bilirubin AST ALT Alkaline Phosphatase Total Protein Albumin Globulin Albumin/Globulin Ratio Free T4 TSH 3rd Generation Fingerstick Blood Sugar Results: 318 Review of Systems - Review of Systems Review of Systems: except for what was mentioned in HPI Critical Care Progress Note - Ventilator Checklist Head of Bed 30 Degrees: Yes PUD Prophalyxis: Yes DVT Prophylaxis: Yes - Nutrition Nutrition: Nutrition Category Date Time Status Heart Healthy Diet [DIET] Diets 03/17/18 Dinner Active Assessment/Plan - Assessment and Plan (Free Text) Assessment: 72 year old male with a past medical history significant for 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 EKG showed atrial fibrillation with RVR with HR of 187. Plan: Neuro: Polymyositis with multiple falls -AAOx3, no FND -Muscle biopsy in 12/2017 confirms polymyositis. -Continue home prednisone 10 mg QID -Continue IVIG as recommended by Dr. Swanson, Neurology. -Right foot X ray: negative for fracture -Duplex ultrasound of bilateral lower extremities to rule out DVT shows no evidence of DVT -Monitor neuro status. -Reorient patient as necessary. Cardio: Atrial Fibrillation -IR IR, normotensive -EKG 03/14: atrial fibrillation with RBBB with HR: 187 -Troponin level ordered -Cardizem drip titrated off -Cardizem 60 PO mg QID -Lopressor 100 mg daily -Digoxin 0.25 mg daily -Enoxaparin 110 mg BID for therapeutic anticoagulation. -Maintain MAP>65. -Monitor for S/S, HD compromise. CAD -Continue home aspirin and plavix. -Continue with PO cardizem and lopressor. Bilateral lower extremity edema -Echocardiogram results unknown. Will follow up in the AM -Lasix 40 mg IV daily -Dr. Zhu, Cardiology, consulted for recommendations. Please follow recommendations. Pulm: -No signs of respiratory distress. CTA B/L -Patient is stating well on room air. -Maintain O2 saturation>95%. -O2 NC PRN -Elevate bed to 30 degrees GI: Diet -Heart healthy diet GI prophylaxis -Protonix 40 mg daily necessary due to chronic prednisone use. Isolated elevated ALT -ALT: improved to 96 -Continue to monitor /Nephro: -BUN/Cr stable at 35/0.7 -Good urine output -Replete electrolytes as needed. -Maintain euvolemia. Endocrinology: Diabetes mellitus type II -Random glucose: 239 -High SSI and levemir 15 U HS -Maintain euglycemia. Heme/Onc: -H/H stable at 11.8/36.5 -No signs of HD compromise. -Continue monitoring H/H DVT prophylaxis -Enoxaparin 110 mg BID for therapeutic anticoagulation ID: -Afebrile, no leukocytosis -Monitor for signs and symptoms of infection. Disposition: Patient is hemodynamically stable for transfer to telemetry Patient seen and examined with Seema. - Date & Time Date: 03/18/18 Time: 14:35 <Alberto Stephenson - Last Filed: 03/18/18 15:48> CCU Objective - Vital Signs / Intake & Output Intake and Output (Last 8hrs): Intake & Output 03/18/18 03/18/18 03/18/18 06:59 14:59 22:59 Intake Total 458 Output Total 2150 Balance -1692 Weight 241 lb 14.4 oz Intake: IV 98 Left Hand 0 Right Forearm 80 Oral 360 Output: Urine 2150 Urine, Voided 2150 Other: # Bowel Movements 0 - Medications Active Medications: Active Medications Generic Name Dose Route Start Last Admin Trade Name Freq PRN Reason Stop Dose Admin Aspirin 81 mg 03/15/18 10:00 03/18/18 10:40 Ecotrin PO 81 mg DAILY KIMMIE Administration Cholecalciferol 2,000 intlu 03/15/18 10:00 03/18/18 10:40 Vitamin D PO 2,000 intlu DAILY KIMMIE Administration Clopidogrel Bisulfate 75 mg 03/15/18 10:00 03/18/18 10:39 Plavix PO 75 mg DAILY KIMMIE Administration Dextrose 0 ml 03/14/18 17:47 Dextrose 50% Inj IV STAT PRN Hypoglycemia Protocol Protocol Digoxin 0.25 mg 03/16/18 14:00 03/17/18 14:24 Lanoxin PO 0.25 mg 1400 KIMMIE Administration Diltiazem HCl 60 mg 03/18/18 10:00 03/18/18 10:39 Cardizem PO 60 mg QID KIMMIE Administration Enoxaparin Sodium 110 mg 03/15/18 18:00 03/18/18 10:38 Lovenox SC 110 mg BID KIMMIE Administration Protocol Furosemide 40 mg 03/16/18 09:08 03/18/18 10:38 Lasix IVP 40 mg DAILY KIMMIE Administration Dextrose 1,000 mls @ 0 mls/hr 03/14/18 17:47 Dextrose 5% In Water 1000 Ml IV .Q0M PRN Hypoglycemia Protocol Protocol Per Protocol Insulin Detemir 15 unit 03/18/18 22:00 Levemir SC HS KIMMIE Insulin Human Regular 0 units 03/15/18 11:30 03/18/18 12:35 Humulin R High SC 10 u ACHS KIMMIE Administration Protocol Metoprolol Tartrate 100 mg 03/16/18 09:07 03/18/18 08:48 Lopressor PO 100 mg BRKDIN KIMMIE Administration Pantoprazole Sodium 40 mg 03/15/18 10:00 03/18/18 10:40 Protonix Ec Tab PO 40 mg DAILY KIMMIE Administration Prednisone 10 mg 03/15/18 00:00 03/18/18 13:45 Prednisone Tab PO 10 mg Q6 KIMMIE Administration Sodium Chloride 0 ml 03/17/18 12:39 03/17/18 14:24 [place] Nasal [place] NS 1 spray Q2H PRN Administration Nasal congestion - Patient Studies Lab Studies: Lab Studies 03/18/18 03/18/18 03/18/18 Range/Units 11:12 07:33 07:20 WBC (4.5-11.0) 10^3/uL RBC (3.5-6.1) 10^6/uL Hgb (14.0-18.0) g/dL Hct (42.0-52.0) % MCV (80.0-105.0) fl MCH (25.0-35.0) pg MCHC (31.0-37.0) g/dl RDW (11.5-14.5) % Plt Count (120.0-450.0) 10^3/uL MPV (7.0-11.0) fl Gran % (50.0-68.0) % Lymph % (Auto) (22.0-35.0) % [place] % (Auto) (1.0-6.0) % Eos % (Auto) (1.5-5.0) % Baso % (Auto) (0.0-3.0) % Gran # (1.4-6.5) Lymph # (Auto) (1.2-3.4) [place] # (Auto) (0.1-0.6) Eos # (Auto) (0.0-0.7) Baso # (Auto) (0.0-2.0) K/mm3 Sodium (132-148) mmol/L Potassium (3.6-5.0) mmol/L Chloride (98-107) mmol/L Carbon Dioxide (21-33) mmol/L Anion Gap (10-20) BUN (7-21) mg/dL Creatinine (0.8-1.5) mg/dl Est GFR ( Amer) Est GFR (Non-Af Amer) POC Glucose (mg/dL) 318 H 215 H (65-110) mg/dL Random Glucose (70-110) mg/dL Calcium (8.4-10.5) mg/dL Total Bilirubin (0.2-1.3) mg/dL AST (17-59) U/L ALT (7-56) U/L Alkaline Phosphatase (38-126) U/L Total Protein (5.8-8.3) g/dL Albumin (3.0-4.8) g/dL Globulin gm/dL Albumin/Globulin Ratio (1.1-1.8) Free T4 1.19 (0.78-2.19) ng/dL TSH 3rd Generation 0.90 (0.46-4.68) mIU/mL 01/21/19 01/21/19 01/20/19 Range/Units 07:20 06:30 21:52 WBC 7.5 (4.5-11.0) 10^3/uL RBC 4.09 (3.5-6.1) 10^6/uL Hgb 11.8 L (14.0-18.0) g/dL Hct 36.5 L (42.0-52.0) % MCV 89.2 (80.0-105.0) fl MCH 28.9 (25.0-35.0) pg MCHC 32.3 (31.0-37.0) g/dl RDW 15.5 H (11.5-14.5) % Plt Count 140 (120.0-450.0) 10^3/uL MPV 9.7 (7.0-11.0) fl Gran % 83.9 H (50.0-68.0) % Lymph % (Auto) 9.5 L (22.0-35.0) % [place] % (Auto) 6.5 H (1.0-6.0) % Eos % (Auto) 0.0 L (1.5-5.0) % Baso % (Auto) 0.1 (0.0-3.0) % Gran # 6.32 (1.4-6.5) Lymph # (Auto) 0.7 L (1.2-3.4) [place] # (Auto) 0.5 (0.1-0.6) Eos # (Auto) 0.0 (0.0-0.7) Baso # (Auto) 0.01 (0.0-2.0) K/mm3 Sodium 137 (132-148) mmol/L Potassium 4.3 (3.6-5.0) mmol/L Chloride 102 (98-107) mmol/L Carbon Dioxide 34 H (21-33) mmol/L Anion Gap 6 L (10-20) BUN 35 H (7-21) mg/dL Creatinine 0.7 L (0.8-1.5) mg/dl Est GFR ( Amer) > 60 Est GFR (Non-Af Amer) > 60 POC Glucose (mg/dL) 340 H (65-110) mg/dL Random Glucose 239 H (70-110) mg/dL Calcium 9.0 (8.4-10.5) mg/dL Total Bilirubin 0.8 (0.2-1.3) mg/dL AST 48 (17-59) U/L ALT 96 H (7-56) U/L Alkaline Phosphatase 83 (38-126) U/L Total Protein 7.5 (5.8-8.3) g/dL Albumin 3.3 (3.0-4.8) g/dL Globulin 4.2 gm/dL Albumin/Globulin Ratio 0.8 L (1.1-1.8) Free T4 (0.78-2.19) ng/dL TSH 3rd Generation (0.46-4.68) mIU/mL Laboratory Results - last 24 hr 03/17/18 03/18/18 03/18/18 21:52 06:30 07:20 WBC 7.5 RBC 4.09 Hgb 11.8 L Hct 36.5 L MCV 89.2 MCH 28.9 MCHC 32.3 RDW 15.5 H Plt Count 140 MPV 9.7 Gran % 83.9 H Lymph % (Auto) 9.5 L [place] % (Auto) 6.5 H Eos % (Auto) 0.0 L Baso % (Auto) 0.1 Gran # 6.32 Lymph # (Auto) 0.7 L [place] # (Auto) 0.5 Eos # (Auto) 0.0 Baso # (Auto) 0.01 Sodium 137 Potassium 4.3 Chloride 102 Carbon Dioxide 34 H Anion Gap 6 L BUN 35 H Creatinine 0.7 L Est GFR ( Amer) > 60 Est GFR (Non-Af Amer) > 60 POC Glucose (mg/dL) 340 H Random Glucose 239 H Calcium 9.0 Total Bilirubin 0.8 AST 48 ALT 96 H Alkaline Phosphatase 83 Total Protein 7.5 Albumin 3.3 Globulin 4.2 Albumin/Globulin Ratio 0.8 L Free T4 TSH 3rd Generation 03/18/18 03/18/18 03/18/18 07:20 07:33 11:12 WBC RBC Hgb Hct MCV MCH MCHC RDW Plt Count MPV Gran % Lymph % (Auto) [place] % (Auto) Eos % (Auto) Baso % (Auto) Gran # Lymph # (Auto) [place] # (Auto) Eos # (Auto) Baso # (Auto) Sodium Potassium Chloride Carbon Dioxide Anion Gap BUN Creatinine Est GFR ( Amer) Est GFR (Non-Af Amer) POC Glucose (mg/dL) 215 H 318 H Random Glucose Calcium Total Bilirubin AST ALT Alkaline Phosphatase Total Protein Albumin Globulin Albumin/Globulin Ratio Free T4 1.19 TSH 3rd Generation 0.90 Critical Care Progress Note - Nutrition Nutrition: Nutrition Category Date Time Status Heart Healthy Diet [DIET] Diets 03/17/18 Dinner Active Assessment/Plan - Assessment and Plan (Free Text) Plan: Patient seen and examined on rounds with resident, agree with note with following additions/exceptions: patient is 72yo male with PMhx Polymyositis (Biopsy proven 12/2017), CAD s/p 5 SUZIE, Hypothyroidism and steroid induced DMII, admitted for worsening Polymyositis and IVIG infusion. Initial EKG showed atrial fibrillation with RVR with HR of 187. Currently afebrile, BP stable, comfortable in NAD, doing well, OFF Cardizem drip, HR 90-100 Denies CP, SOB Labs, imaging, chart reviewed Afib Polymyositis CAD Hypothyroidism DM CAD Recommend: - supp o2 as needed, duonebs PRN - NO ID issues - BP control - Cardizem 60mg QID PO - Lopressor 100 mg daily - Digoxin 0.25 mg daily - Enoxaparin 110 mg BID for therapeutic anticoagulation - ECHO follow up - Prednisone 10mg QID PO - FS control, Start Levemir 15u QHS - Check THS, HgbA1C - GI ppx - DVT ppx - Stable, transfer to telemetry
[2018-03-18] MEDS: Digoxin 250 mcg (0.25 mg) Tab PO SCH (16:03)
[2018-03-18] MEDS: Insulin Detemir 100 units/ml Vial (Levemir) SC SCH (22:03)
--- NOTE | 2018-03-18 23:06 | PN ---
DATE: 03/18/2018 SUBJECTIVE: A 72-year-old white male with history of hypertension, CAD, status post stents. The patient was admitted to hospital with recent diagnosis of polymyositis which is worsening. The patient phoned 7 to 8 times in the last 2 weeks. The patient is then receiving IV gamma-globulin by Dr. 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 He is being admitted for continuous IV gamma-globulin. On admission, the patient was found to be in rapid atrial fibrillation with a rapid ventricular response and heart rate over 175. The patient has been seen in consultation by Dr. Chavarria. He has received digoxin, Cardizem, Cardizem drip, increasing doses of beta-blockers. Continues to have rapid atrial fibrillation. Today, his heart rate is approximately between 115 and 125. He does have peripheral edema of lower extremities with some mottling of the lower extremities, possibly secondary to trauma. PHYSICAL EXAMINATION: HEART: Regular and rapid. CHEST: Clear to auscultation and percussion. ABDOMEN: Obese but benign. IMPRESSION: New onset of rapid atrial fibrillation, history of coronary artery disease, new onset of polymyositis, rule out myocarditis, rule out pericarditis. Continue to control his atrial fibrillation. Continue on anticoagulation while in atrial fibrillation, and continue on his IV gamma-globulin. Smith Antonio MD
[2018-03-19 07:13] LABS: GRAN # 7.17 (1.4-6.5); GRAN % 88.5 % (50.0-68.0); HEMOGLOBIN 12.1 g/dL (14.0-18.0); LYMPH # 0.7 (1.2-3.4); MEAN PLATELET VOLUME 9.5 fl (7.0-11.0); MONO # 0.3 (0.1-0.6); MONO % 3.5 % (1.0-6.0); RBC 4.17 10^6/uL (3.5-6.1); RED CELL DISTRIBUTION WIDTH 15.4 % (11.5-14.5); WHITE BLOOD COUNT 8.1 10^3/uL (4.5-11.0)
[2018-03-19 07:28] LABS: ALB/GLOB RATIO 0.8 (1.1-1.8); ALBUMIN 3.3 g/dL (3.0-4.8); ALT/SGPT 90 U/L (7-56); AST/SGOT 45 U/L (17-59); BLOOD UREA NITROGEN 39 mg/dL (7-21); CALCIUM 9.4 mg/dL (8.4-10.5); GFR NON-AFRICAN AMERICAN > 60
[2018-03-19] MEDS: Insulin Reg-HIGH-Coverage SC SCH ×4 (08:24→21:30)
[2018-03-19] MEDS: Cholecalciferol 1,000 INTLU TAB PO SCH (10:26)
[2018-03-19] MEDS: Pantoprazole 40 mg EC Tab PO SCH (10:27)
[2018-03-19] MEDS: Enoxaparin 120 mg Syringe SC SCH ×2 (10:31→18:02)
[2018-03-19] MEDS: Digoxin 250 mcg (0.25 mg) Tab PO SCH ×2 (12:21→15:14)
--- NOTE | 2018-03-19 12:39 | PN ---
DATE: 03/19/2018 SUBJECTIVE: The patient is seen lying in bed in the CCU. He awaits transfer to telemetry. He feels somewhat better. He remains in atrial fibrillation with fairly controlled rate. CURRENT MEDICATIONS: Include diltiazem 60 mg 4 times daily., Ecotrin once daily, digoxin 0.25 mg daily, Lasix 40 mg daily Levemir, Lopressor 100 mg twice daily, Lovenox, Plavix 75 mg daily, prednisone 10 mg every 6 hours, , Protonix. OBJECTIVE: GENERAL: He is a middle-aged man who appears comfortable at rest. VITAL SIGNS: Blood pressure is 130/78 with pulse 100, respirations are 14. He is in atrial fibrillation. He is afebrile. HEENT: Normocephalic, atraumatic. NECK: Supple. No JVD noted. CHEST: Bilateral scattered rhonchi present. HEART: Rhythm is irregular regular with a systolic murmur at the base. ABDOMEN: Soft, nontender, normoactive bowel sounds. EXTREMITIES: 1+ leg edema. DIAGNOSTIC DATA: The potassium for 4.6, BUN and creatinine 39 and 0.7, glucose 234. White count 8.1, hematocrit 12.1 and 36.7 with platelet count 154,000. Intake and output yesterday 740 and 2550. IMPRESSION: 1. Persistent atrial fibrillation with fair heart rate control. 2. Moderate aortic stenosis. 3.. 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 4. Coronary disease status post prior myocardial fraction and PCI. RECOMMENDATIONS: His diltiazem dose will be increased to 90 mg every 6 hours for better heart rate control. The rest of his medications will continue unchanged. His aortic stenosis appears to be stable at this time presenting no symptoms. Continued immunoglobulin therapy as planned should proceed. Decision will need to be made regarding appropriateness of chronic anticoagulation depending upon his stability and gait at the time of discharge. We will continue to follow and make further recommendations as appropriate. Brown Chavarria MD
[2018-03-19] MEDS: diltiaZEM IVPB 100mg in NS 100 ML IV PRN (13:36)
--- NOTE | 2018-03-19 14:57 | CP.PCM.PCO ---
Physician Communication Note - Physician Communication Note Physician Communication Note: patient HR uncontrolled, up to 140 bpm, CArdizem drip restarted this pm
[2018-03-19] MEDS: Insulin Detemir 100 units/ml Vial (Levemir) SC SCH (21:30)
[2018-03-20] MEDS: diltiaZEM IVPB 100mg in NS 100 ML IV PRN ×2 (06:27→16:38)
[2018-03-20 06:34] LABS: BASO # 0.01 K/mm3 (0.0-2.0); BASO % 0.1 % (0.0-3.0); GRAN # 9.54 (1.4-6.5); GRAN % 84.1 % (50.0-68.0); HEMOGLOBIN 10.6 g/dL (14.0-18.0); LYMPH # 1.3 (1.2-3.4); LYMPH % 11.6 % (22.0-35.0); MEAN CELL VOLUME 87.9 fl (80.0-105.0); MEAN CORPUSCULAR HEMOGLOBIN 29.1 pg (25.0-35.0); MEAN CORPUSCULAR HGB CONC 33.1 g/dl (31.0-37.0); MEAN PLATELET VOLUME 9.8 fl (7.0-11.0); MONO # 0.5 (0.1-0.6); MONO % 4.2 % (1.0-6.0); RBC 3.64 10^6/uL (3.5-6.1); RED CELL DISTRIBUTION WIDTH 15.5 % (11.5-14.5); WHITE BLOOD COUNT 11.4 10^3/uL (4.5-11.0)
[2018-03-20 06:48] LABS: ALB/GLOB RATIO 0.8 (1.1-1.8); ALBUMIN 3.1 g/dL (3.0-4.8); ALT/SGPT 85 U/L (7-56); AST/SGOT 57 U/L (17-59); BLOOD UREA NITROGEN 54 mg/dL (7-21); GFR NON-AFRICAN AMERICAN > 60
[2018-03-20] MEDS: Insulin Reg-HIGH-Coverage SC SCH ×4 (08:32→22:01)
[2018-03-20 09:01] LABS: IRON 70 ug/dL (45-180)
[2018-03-20] MEDS: Cholecalciferol 1,000 INTLU TAB PO SCH (09:05)
[2018-03-20] MEDS: Pantoprazole 40 mg EC Tab PO SCH (09:06)
[2018-03-20] MEDS: Enoxaparin 120 mg Syringe SC SCH ×2 (09:07→19:15)
[2018-03-20 09:10] LABS: % IRON SATURATION 27 % (20-55); TOTAL IRON BINDING CAPACITY 257 ug/dL (261-462)
--- NOTE | 2018-03-20 10:29 | PN ---
DATE: 03/20/2018 LOCATION: [facility] seen in bed 3 in the ICU, 129 bed 3. SUBJECTIVE: The patient was admitted to the hospital with progressive polymyositis, multiple falls for continues . The patient was found to have rapid atrial fibrillation, as per yesterday's heart rate it was down to 100; however, overnight he has spiked his heart rate, it has been uncontrolled between 140 and 160. He is restarted on Cardizem drip. He will remain in the ICU at this point. TSH is pending. Vital signs are stable. He is on beta negar, calcium-channel negar and Digoxin to control his heart rate. He might need Sotalol or high dose of Cardizem. Vital signs otherwise are stable. He is afebrile. He is comfortable except for the rapid heart rate. Does have an elevated BUN and creatinine of 54 and 0.7. Blood pressure 134/58, heart rate is 160 at this point. Hemoglobin is dropped to 10.6. We will check for occult blood and also recheck his iron levels, B12, folic acid and iron. Chest is clear to auscultation. Heart examination is irregular with rapid ventricular response. Extremities, 2+ pedal edema. The patient is awake and oriented x3. Smith Antonio MD
--- NOTE | 2018-03-20 10:44 | PN ---
DATE: 03/19/2018 SUBJECTIVE: The patient is seen still unable to be transferred from ICU. He is in rapid atrial fibrillation, but his rate has been controlled up to approximately 100. He finishes doses of gammaglobulin for his polymyositis. He is having some less swelling in his legs. He is tolerating his diet well. OBJECTIVE: CHEST: Clear to auscultation and percussion on examination. HEART: He has regular rhythm with some mildly controlled ventricular response. ABDOMEN: Obese, but benign. EXTREMITIES: Have slightly less edema. He is anxious towards physical therapy and occupational therapy. He is still on Lovenox to for stroke and DVT because of atrial fibrillation. Most likely will be switching over to anticoagulant. The patient is being seen in consultation by Dr. Chavarria and Neurology. Smith Antonio MD
--- NOTE | 2018-03-20 13:06 | CP.PCM.APN ---
Subjective - Date & Time of Evaluation Date of Evaluation: 03/20/18 Time of Evaluation: 12:00 - Subjective Subjective: pt seen and examined in CCU Pt is in bed , reports no complaints pt in no distress , appears comfirtable IV cardizem noted infusing at 10ml/hr Review of Systems - Review of Systems All systems: reviewed and no additional remarkable complaints except - Constitutional Constitutional: Weakness - Cardiovascular Cardiovascular: absent: As Per HPI, Acrocyanosis, Chest Pain, Chest Pain at R est, Chest Pain with Activity, Claudication, Diaphoresis, Dyspnea, Dyspnea on Exertion, Edema, Irregular Heart Rhythm, Pain Radiating to Arm/Neck/Jaw, Leg Edema, Leg Ulcers, Lightheadedness, Orthopnea, Palpitations, Paroxysmal Nocturnal Dyspnea, Pedal Edema, Radiating Pain, Rapid Heart Rate, Slow Heart Rate, Syncope, Other - Respiratory Respiratory: absent: As Per HPI, Cough, Dyspnea, Hemoptysis, Dyspnea on Exertion, Wheezing, Snoring, Stridor, Pain on Inspiration, Chest Congestion, Excessive Mucous Production, Change in Mucous Color, Pain with Coughing, Other Objective - Vital Signs/Intake and Output Vital Signs (last 24 hours): Temp Pulse Resp BP Pulse Ox 97.5 F L 134 H 16 107/51 L 94 L 03/20/18 10:28 03/20/18 10:23 03/19/18 23:00 03/20/18 10:23 03/19/18 23:00 Intake and Output: 03/20/18 03/20/18 06:59 18:59 Intake Total 100 Balance 100 - Medications Medications: Current Medications Acetaminophen (Tylenol 325mg Tab) 650 mg PO Q6H PRN PRN Reason: Pain, moderate (4-7) Last Admin: 03/20/18 10:26 Dose: 650 mg Aspirin (Ecotrin) 81 mg PO DAILY [facility] Last Admin: 03/20/18 09:05 Dose: 81 mg Cholecalciferol (Vitamin D) 2,000 intlu PO DAILY [facility] Last Admin: 03/20/18 09:05 Dose: 2,000 intlu Clopidogrel Bisulfate (Plavix) 75 mg PO DAILY [facility] Last Admin: 03/20/18 09:06 Dose: 75 mg Dextrose (Dextrose 50% Inj) 0 ml IV STAT PRN; Protocol PRN Reason: Hypoglycemia Protocol Digoxin (Lanoxin) 0.25 mg PO 1400 [facility] Last Admin: 03/19/18 15:14 Dose: Not Given Diltiazem HCl (Cardizem) 120 mg PO QID [facility] Last Admin: 03/20/18 10:23 Dose: 30 mg Enoxaparin Sodium (Lovenox) 110 mg SC BID [facility]; Protocol Last Admin: 03/20/18 09:07 Dose: 110 mg Furosemide (Lasix) 40 mg IVP DAILY [facility] Last Admin: 03/20/18 09:05 Dose: 40 mg Dextrose (Dextrose 5% In Water 1000 Ml) 1,000 mls @ 0 mls/hr IV .Q0M PRN; Protocol PRN Reason: Hypoglycemia Protocol diltiaZEM IVPB 100mg in NS (Cardizem 100mg In Ns) 100 mls @ 10 mls/hr IV .Q10H PRN; Protocol PRN Reason: TITRATE PER MD ORDER Last Admin: 03/20/18 06:27 Dose: 10 mg/hr, 10 mls/hr Insulin Detemir (Levemir) 15 unit SC HS [facility] Last Admin: 03/19/18 21:30 Dose: 15 units Insulin Human Regular (Humulin R High) 0 units SC ACHS [facility]; Protocol Last Admin: 03/20/18 08:32 Dose: 7 u Metoprolol Tartrate (Lopressor) 100 mg PO BRKDIN [facility] Last Admin: 03/20/18 08:33 Dose: 100 mg Pantoprazole Sodium (Protonix Ec Tab) 40 mg PO DAILY [facility] Last Admin: 03/20/18 09:06 Dose: 40 mg Prednisone (Prednisone Tab) 10 mg PO Q6 [facility] Last Admin: 03/20/18 06:23 Dose: 10 mg Sodium Chloride ([place] Nasal [place]) 0 ml NS Q2H PRN PRN Reason: Nasal congestion Last Admin: 03/17/18 14:24 Dose: 1 spray - Labs Labs: 03/20/18 05:15 03/20/18 05:15 PT 11.7 SECONDS (9.4-12.5) 03/17/18 06:00 INR 1.02 03/17/18 06:00 APTT 30.5 Seconds (25.1-36.5) 03/17/18 06:00 - Constitutional Appears: Non-toxic, No Acute Distress - Eye Exam Eye Exam: Normal appearance - Respiratory Exam Respiratory Exam: NORMAL BREATHING PATTERN - Cardiovascular Exam Cardiovascular Exam: Irregular Rhythm, +S1, +S2 - GI/Abdominal Exam GI & Abdominal Exam: Soft, Normal Bowel Sounds - Neurological Exam Neurological Exam: Alert, Awake, Oriented x3 - Psychiatric Exam Psychiatric exam: Normal Affect, Normal Mood - Skin Skin Exam: Dry, Intact Assessment and Plan - Assessment and Plan (Free Text) Plan: 72 yr old male with pmh sig for cad with stents, dm, frequent multiple falls and muscle weakness admitted with polymyositis from neurologist office found in rapid afib with rvr admitted to the ICu for further mgmt. # persistent afib with poor rate control iv cadizem drip @ 10/hr cardiology recs or mgmt noted with digoxin, BB and CCB # polymyositis neuro consultation and rec noted s/p IVIG regimen #frequent falls p.t recs for acute rehab noted -[facility] vs [facility] when medically stable will continue to follow BPCI/TIC - BPCIA/TIC Educated pt/family on BPCIA/CIR/Med to Bed Programs: N/A Flyers given, including [facility] Beneficiary letter: N/A Pt/family verbalized understanding & agreed to program: N/A
[2018-03-20 13:21] LABS: FOLATE 13.6 ng/mL
--- NOTE | 2018-03-20 14:18 | PN ---
DATE: 03/19/2018 SUBJECTIVE: The patient is seen lying in bed in the CCU. He continues to have episodes of atrial fibrillation with rapid ventricular response, despite high-dose metoprolol, diltiazem, and maintenance digoxin. He was placed back on IV diltiazem last evening. He is currently comfortable. He denies any dyspnea or other complaints. MEDICATIONS: His current medications include IV diltiazem at 10 mg per hour, oral diltiazem at 90 mg q.i.d., Ecotrin, insulin, digoxin 0.25 mg daily, Lasix 40 mg IV daily, Levemir insulin, metoprolol 100 mg b.i.d., subcutaneous Lovenox, Plavix 75 mg daily, prednisone 10 mg every 6 hours, Protonix. OBJECTIVE: GENERAL: He is a middle-aged man, who appears comfortable at rest. VITAL SIGNS: Blood pressure is 106/50 with a pulse of 130, in atrial fibrillation, respirations are 16, and he is afebrile. HEENT: No JVD. CHEST: Few scattered rhonchi. HEART: PMI displaced laterally with an irregularly regular rhythm. ABDOMEN: The abdomen is soft, nontender with normoactive bowel sounds. EXTREMITIES: 1+ ankle edema. DIAGNOSTIC DATA: Potassium 4.3, BUN and creatinine 54 and 0.7, glucose 233. White count 11.4, hemoglobin and hematocrit 10.6 and 32 with platelet count 194,000. Repeat thyroid profile was negative. IMPRESSION: 1. Atrial fibrillation with frequent rapid ventricular response, suboptimal heart rate control. 2. Moderate aortic stenosis. 3. Polymyositis undergoing therapy with immunoglobulin infusion. 4. Coronary artery disease status post remote myocardial infarction and PCI. RECOMMENDATIONS: His oral diltiazem will be increased to 120 mg 4 times daily. His metoprolol and digoxin continued unchanged. If his rate remains poorly controlled, consideration may need to be given to transesophageal echocardiogram and possible cardioversion. We will continue to follow and make further recommendations as appropriate. Brown Chavarria MD [facility] # [id number]
[2018-03-20] MEDS: Digoxin 250 mcg (0.25 mg) Tab PO SCH (14:56)
[2018-03-20] MEDS: Insulin Detemir 100 units/ml Vial (Levemir) SC SCH (22:01)
[2018-03-21] MEDS: diltiaZEM IVPB 100mg in NS 100 ML IV PRN (05:40)
[2018-03-21] MEDS: Insulin Reg-HIGH-Coverage SC SCH ×4 (08:39→21:49)
[2018-03-21] MEDS: Enoxaparin 120 mg Syringe SC SCH ×2 (10:03→18:13)
[2018-03-21] MEDS: Cholecalciferol 1,000 INTLU TAB PO SCH (10:04)
[2018-03-21] MEDS: Pantoprazole 40 mg EC Tab PO SCH (10:06)
--- NOTE | 2018-03-21 12:34 | PN ---
DATE: 03/21/2018 SUBJECTIVE: The patient is seen lying in bed on the CCU. He had converted to sinus rhythm last evening and remains in sinus, he has been kept on IV Cardizem in addition to his oral medications. MEDICATIONS: His other medications include metoprolol 100 mg twice a day, diltiazem 120 mg four times a day, Ecotrin once daily, digoxin 0.25 mg daily, Lasix 40 mg daily Levemir insulin, Lovenox, Plavix, prednisone 10 mg every 6 hours, Protonix. OBJECTIVE: GENERAL: He is a middle-aged man who appears comfortable at rest. VITAL SIGNS: His blood pressure is 136/70 with pulse of 76 and sinus respirations are 16. He is afebrile. HEENT: No JVD. CHEST: Few scattered rhonchi. HEART: PMI displaced laterally. The rhythm is regular. Systolic murmur is noted at the base. ABDOMEN: Soft and nontender with normoactive bowel sounds. EXTREMITIES: Reveal 1+ ankle edema. DIAGNOSTIC DATA: No blood work pending from this morning. IMPRESSION: 1. Recent persistent atrial fibrillation with rapid ventricular response of poorly controlled with multiple medications, now back in sinus rhythm. 2. History of moderate aortic stenosis. 3. Polymyositis. 4. Coronary artery disease status post remote percutaneous coronary intervention. RECOMMENDATIONS: His intravenous diltiazem will be discontinued at this time. In attempts to maintain sinus rhythm, sotalol will be initiated in place of metoprolol. Followup electrocardiograms to monitor his QT interval will be planned. Oral digoxin and diltiazem will be continued for now in the event he has recurrence of his atrial fibrillation. Anticoagulant therapy will be continued as well. He is currently receiving Lovenox, a decision will need to be made regarding appropriateness of oral therapy at the time of discharge depending upon his ambulatory status. We will continue to follow and make further recommendation as appropriate. Brown Chavarria MD
--- NOTE | 2018-03-21 13:30 | CP.PCM.PCO ---
Physician Communication Note - Physician Communication Note Physician Communication Note: CArdizem drip stopped this am,sotalol per card,check QT inter after 2nd dos
[2018-03-21] MEDS: Digoxin 250 mcg (0.25 mg) Tab PO SCH (14:23)
--- NOTE | 2018-03-21 16:26 | CP.PCM.APN ---
Subjective - Date & Time of Evaluation Date of Evaluation: 03/21/18 Time of Evaluation: 14:10 - Subjective Subjective: Pt. seen and examined at bedside. Currently denied any complaints of chest pain, shortness of breath, palpitations, appears to be in no distress, complains of pain to legs,describes as not new. Cardizem IV drip discontinued this am, sta rted of PO Sotalol. Review of Systems - Constitutional Constitutional: As Per HPI. absent: Anorexia, Chills, Daytime Sleepiness, Exce ssive Sweating, Fatigue, Fever, Frequent Falls, Headache, Increased Appetite, Lethargy, Malaise, Night Sweats, Snoring, Sleep Apnea, Weight Gain, Weight Loss, Weakness, Other - EENT Eyes: absent: As Per HPI, Blind Spots, Blurred Vision, Change in Vision, Decrea sed Night Vision, Diplopia, Discharge, Dry Eye, Exophthalmos, Floaters, Irritation, Itchy Eyes, Loss of Peripheral Vision, Pain, Photophobia, Requires Corrective Lenses, Sees Flashes, Spots in Vision, Tunnel Vision, Other Visual Disturbances, Loss of Vision, Other Ears: absent: As Per HPI, Decreased Hearing, Ear Discharge, Ear Pain, Tinnitus, Abnormal Hearing, Disequilibrium, Dizziness, Other Nose/Mouth/Throat: absent: As Per HPI, Epistaxis, Nasal Congestion, Nasal Discharge, Nasal Obstruction, Nasal Trauma, Nose Pain, Post Nasal Drip, Sinus Pa in, Sinus Pressure, Bleeding Gums, Change in Voice, Dental Pain, Dry Mouth, Dysphagia, Halitosis, Hoarsness, Lip Swelling, Mouth Lesions, Mouth Pain, Odynophagia, Sore Throat, Throat Swelling, Tongue Swelling, Facial Pain, Neck Pain, Neck Mass, Other - Cardiovascular Cardiovascular: Irregular Heart Rhythm, Rapid Heart Rate - Respiratory Respiratory: absent: As Per HPI, Cough, Dyspnea, Hemoptysis, Dyspnea on Exertion, Wheezing, Snoring, Stridor, Pain on Inspiration, Chest Congestion, Excessive Mucous Production, Change in Mucous Color, Pain with Coughing, Other - Gastrointestinal Gastrointestinal: absent: As Per HPI, Abdominal Pain, Belching, Bloating, Change in Bowel Habits, Change in Stool Character, Coffee Ground Emesis, Constipation, Cramping, Diarrhea, Dyspepsia, Dysphagia, Early Satiety, Excessive Flatus, Fecal Incontinence, Heartburn, Hematemesis, Hematochezia, Loose Stools, Melena, Nausea, Odynophagia, Temesmus, Vomiting, Other - Genitourinary Genitourinary: absent: As Per HPI, Change in Urinary Stream, Difficulty Urinati ng, Dysuria, Flank Pain, Hematuria, Pyuria, Nocturia, Urinary Incontinence, Urinary Frequency, Urinary Hesitance, Urinary Urgency, Voiding Freq/Small Amts, Freq UTI, Hx Renal/Bladder Calculi, Hx /Renal Surgery, Bladder Distension, Other - Musculoskeletal Musculoskeletal: Myalgias - Integumentary Integumentary: absent: As Per HPI, Acne, Alopecia, Bleeding Lesions, Change in Hair, Change in Nails, Change in Pigmentation, Changing Lesions, Dry Skin, Erythema, Furuncle, Hirsutism, Lesions, New Lesions, Non-Healing Lesions, Photosensitivity, Pruritus, Rash, Skin Pain, Skin Ulcer, Sores, Striae, Swelling, Unusual Bruising, Wounds, Jaundice, Other - Neurological Additional comments: polymyositis post IVIG treatment - Psychiatric Psychiatric: absent: As Per HPI, Abnormal Sleep Pattern, Anhedonia, Anxiety, Auditory Hallucinations, Behavioral Changes, Change in Appetite, Change in Libido, Confusion, Depression, Difficulty Concentrating, Hallucinations, Homicidal Ideation, Hopelessness, Irritability, Memory Loss, Mood Swings, Panic Attacks, Paranoia, Suicidal Ideation, Visual Hallucinations, Tactile Hallucinations, Other - Endocrine Endocrine: absent: As Per HPI, Change in Body Appearance, Change in Libido, Cold Intolorance, Deepening of Voice, Excessive Sweating, Fatigue, Flushing, Heat Int olorance, Increase in Ring/Shoe/Hat Size, Palpitations, Polydipsia, Polyphagia, Polyuria, Other Objective - Vital Signs/Intake and Output Vital Signs (last 24 hours): Temp Pulse Resp BP Pulse Ox 97.5 F L 71 20 141/69 95 03/20/18 10:28 03/21/18 14:23 03/20/18 16:29 03/21/18 14:23 03/20/18 16:29 Intake and Output: 03/21/18 03/21/18 06:59 18:59 Intake Total 2360 80 Output Total 2700 Balance -340 80 - Medications Medications: Current Medications Acetaminophen (Tylenol 325mg Tab) 650 mg PO Q6H PRN PRN Reason: Pain, moderate (4-7) Last Admin: 03/20/18 17:47 Dose: 650 mg Aspirin (Ecotrin) 81 mg PO DAILY [facility] Last Admin: 03/21/18 10:04 Dose: 81 mg Cholecalciferol (Vitamin D) 2,000 intlu PO DAILY [facility] Last Admin: 03/21/18 10:04 Dose: 2,000 intlu Clopidogrel Bisulfate (Plavix) 75 mg PO DAILY [facility] Last Admin: 03/21/18 10:03 Dose: 75 mg Dextrose (Dextrose 50% Inj) 0 ml IV STAT PRN; Protocol PRN Reason: Hypoglycemia Protocol Digoxin (Lanoxin) 0.25 mg PO 1400 [facility] Last Admin: 03/21/18 14:23 Dose: 0.25 mg Diltiazem HCl (Cardizem) 120 mg PO QID [facility] Last Admin: 03/21/18 14:23 Dose: 120 mg Enoxaparin Sodium (Lovenox) 110 mg SC BID [facility]; Protocol Last Admin: 03/21/18 10:03 Dose: 110 mg Furosemide (Lasix) 40 mg IVP DAILY [facility] Last Admin: 03/21/18 10:04 Dose: 40 mg Dextrose (Dextrose 5% In Water 1000 Ml) 1,000 mls @ 0 mls/hr IV .Q0M PRN; Protocol PRN Reason: Hypoglycemia Protocol Insulin Detemir (Levemir) 15 unit SC HS [facility] Last Admin: 03/20/18 22:01 Dose: 15 units Insulin Human Regular (Humulin R High) 0 units SC ACHS [facility]; Protocol Last Admin: 03/21/18 12:50 Dose: 10 u Pantoprazole Sodium (Protonix Ec Tab) 40 mg PO DAILY [facility] Last Admin: 03/21/18 10:06 Dose: 40 mg Prednisone (Prednisone Tab) 10 mg PO Q6 [facility] Last Admin: 03/21/18 14:25 Dose: 10 mg Sodium Chloride ([place] Nasal [place]) 0 ml NS Q2H PRN PRN Reason: Nasal congestion Last Admin: 03/17/18 14:24 Dose: 1 spray Sotalol HCl ([place]) 80 mg PO BID [facility] - Labs Labs: 03/20/18 05:15 03/20/18 05:15 PT 11.7 SECONDS (9.4-12.5) 03/17/18 06:00 INR 1.02 03/17/18 06:00 APTT 30.5 Seconds (25.1-36.5) 03/17/18 06:00 - Constitutional Appears: Well, Non-toxic - Head Exam Head Exam: NORMAL INSPECTION, NORMOCEPHALIC - Eye Exam Eye Exam: Normal appearance Pupil Exam: NORMAL ACCOMODATION - ENT Exam ENT Exam: Mucous Membranes Moist, Normal Exam - Neck Exam Neck Exam: Full ROM, Normal Inspection. absent: Lymphadenopathy - Respiratory Exam Respiratory Exam: Clear to Ausculation Bilateral, NORMAL BREATHING PATTERN - Cardiovascular Exam Cardiovascular Exam: Irregular Rhythm, +S1, +S2 - GI/Abdominal Exam GI & Abdominal Exam: Soft, Normal Bowel Sounds - Rectal Exam Rectal Exam: Deferred - Exam Exam: absent: Circumcision, NORMAL INSPECTION, Scrotal Swelling, Testicular Tenderness, Uretheral Discharge, Testicular Vertical Lie, Bladder Distension External exam: absent: Ecchymosis, Erythema, Lacerations, Lesions, NORMAL EXTERNAL EXAM, Swelling Bimanual exam: absent: Adenexal Mass, Adnexal, Cervical Motion Tendernes, NORMAL BIMANUAL EXAM, Uterine Enlargement, Uterine Tenderness - Extremities Exam Extremities Exam: Normal Inspection - Neurological Exam Neurological Exam: Alert, Awake, Oriented x3 - Psychiatric Exam Psychiatric exam: Normal Affect, Normal Mood - Skin Skin Exam: Dry, Intact, Normal Color, Warm Assessment and Plan - Assessment and Plan (Free Text) Assessment: Assessment: 72 yr old male with pmh sig for cad with stents, dm, frequent multiple falls and muscle weakness admitted with polymyositis from neurologist office found in rapid afib with rvr admitted to the ICu for further mgmt. Plan: 1. Polymyositis S/p IVIG treatment, completed per neurology 2. Rapid atrial fibrillatio- now with rate controlled, Cardizem IV drip discontinued today per cardiology, Sotalol PO initiated, will need to monitor QR interval after second dose,(tommorow am, EKG pending) 3. Deconditioning, likely secondary to polymyositis and hospital course Acute rehab recommended by PT SW/CM planning for DC to acute rehab when medically cleared. Will continue to monitor clinical status and follow closely.
[2018-03-21] MEDS: Insulin Detemir 100 units/ml Vial (Levemir) SC SCH (21:48)
--- NOTE | 2018-03-21 22:40 | PN ---
DATE: 03/21/2018 A 72-year-old white male, seen in the ICU, bed 3. The patient has had many days of rapid atrial fibrillation, eventually AFib broke today. Heart rate has returned to normal, approximately 70 to 85. Blood pressure is 119/68, temperature is 98.5. Also, he has had marked decreased in swelling in his lower extremities. BUN and creatinine have been elevated at 54 and 0.7. The patient is awake and alert, and oriented x3. He has no chest pain, no palpitation, no shortness of breath. He did have a drop in his hemoglobin from a left thigh hematoma. He is on blood thinners. Social service is working for a subacute rehab for this patient. We do not think acute rehab is advisable due to his recent bout with uncontrolled atrial fibrillation. The patient's chest is clear to auscultation. Heart has sinus rhythm now with controlled ventricular response. Abdomen is obese, but benign. Extremities show minimal edema bilaterally. There is a large hematoma of the posterior aspect of the left thigh. Smith Antonio MD
[2018-03-22 06:46] VITALS: TEMP 97.6
[2018-03-22] MEDS: Insulin Reg-HIGH-Coverage SC SCH ×3 (07:53→18:36)
[2018-03-22] MEDS: Pantoprazole 40 mg EC Tab PO SCH (09:44)
[2018-03-22] MEDS: Cholecalciferol 1,000 INTLU TAB PO SCH (09:44)
--- NOTE | 2018-03-22 10:26 | PN ---
DATE: 03/22/2018 SUBJECTIVE: A 72-year-old white male, seen in the ICU, admitted with multiple falls and severe progressive polymyositis, on IV gammaglobulin. The patient developed atrial fibrillation with rapid ventricular response. It was difficult to control. Eventually, the patient broke. His heart rate now is 63. PHYSICAL EXAMINATION: GENERAL: He is awake, alert, and oriented x3. VITAL SIGNS: Blood pressure 158/78, his ____ has decreased. NEUROLOGIC EXAMINATION: Grossly intact. EXTREMITIES: He does have severe muscle weakness in the upper and lower extremities because of his polymyositis. He does have a large hematoma on the left thigh. His hemoglobin is stable at 10.6. PLAN: Finish his IV gammaglobulin and continue to control his blood pressure, his heart rate and change him to an oral form of anticoagulant and eventually transfer to [facility]. Smith Antonio MD
[2018-03-22 12:28] VITALS: RESP 17
--- NOTE | 2018-03-22 12:32 | CP.PCM.PCO ---
Physician Communication Note - Physician Communication Note Physician Communication Note: Pt.medically cleared for discharge to [facility] , awaiting acceptance
[2018-03-22] MEDS: Digoxin 250 mcg (0.25 mg) Tab PO SCH (15:08)
[2018-03-22 15:11] VITALS: PULSE 72
--- NOTE | 2018-03-22 15:47 | CARD ---
APPROVED REPORT Date of service: 03/22/2018 EKG Measurement Heart [id number] <Conclusion> Normal sinus rhythm Right bundle branch block Possible Inferior infarct, age undetermined T wave abnormality, consider lateral ischemia Abnormal ECG
--- NOTE | 2018-03-22 16:14 | PN ---
DATE: 03/22/2018 SUBJECTIVE: The patient is seen lying in bed in the CCU. He remains in sinus rhythm. Plan is being made for transfer to acute rehab facility. CURRENT MEDICATIONS: Include sotalol 80 mg twice a day, diltiazem 120 mg four times a day, aspirin once daily, digoxin 0.25 mg daily, Lasix 40 mg daily, Levemir insulin, prednisone 10 mg every 6 hours, Protonix and Lovenox. PHYSICAL EMANATION: GENERAL: He is a chronically ill-appearing middle-aged man. VITAL SIGNS: Blood pressure is 156/64 with a pulse of 60 and sinus respirations 60. He is afebrile. HEENT: No JVD. CHEST: Few scattered rhonchi. HEART: PMI displaced laterally with systolic murmur at the base. ABDOMEN: Soft, nontender with bowel sounds. EXTREMITIES: 1+ ankle edema. DIAGNOSTIC DATA: Morning blood work pending. Electrocardiogram reveals sinus rhythm with normal QT interval. IMPRESSION: 1. Recent paroxysmal atrial fibrillation, currently in sinus rhythm, tolerating sotalol at this time. Remains on diltiazem and digoxin as well. 2. 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 3. History of moderate aortic stenosis. 4. Rest of problems as noted. RECOMMENDATIONS: His current medications should be continued for now. He is stable from a cardiac standpoint for transfer to rehabilitation center once his gait instability is improved. Switching to oral anticoagulant would likely be appropriate. If diltiazem continued to be utilized, Pradaxa would be the preferred agent as it does not potentiate the anticoagulant effect of Pradaxa. Diuretic therapy should continue for now until of peripheral edema has resolved. Conservative management of his aortic stenosis is planned for now and outpatient followup will be arranged upon discharge from rehabilitation center. Brown Chavarria MD MTDD
[2018-03-22 18:17] VITALS: O2SAT 98
[2018-03-22 18:51] VITALS: BP 155/88
[2018-03-22 20:37] VITALS: PULSE 76
--- NOTE | 2018-03-22 23:15 | CARD ---
APPROVED REPORT Date of service: 03/22/2018 EKG Measurement Heart [id number] <Conclusion> Normal sinus rhythm Right bundle branch block T wave abnormality, consider inferolateral ischemia Abnormal ECG
--- NOTE | 2018-03-24 10:04 | DS ---
HISTORY OF PRESENT ILLNESS: The patient is a 72-year-old male who is recently diagnosed with progressive polymyositis. The patient has history of hypertension and CAD in the past. The patient was admitted on 03/14/2018. He was discharged on 03/22/2018. continue his IV gammaglobulin over 5 days. On admission, the patient was found to be in rapid atrial fibrillation. He was transferred to Intensive Care Unit. He received his 5 days of IV gammaglobulin. consultation Neurology and also by Cardiology not definite. The patient had a difficult time in controlling his atrial fibrillation. He was treated with Cardizem drip, no history of p.o. Cardizem; beta-blockers and Digoxin. Continue to have rapid atrial fibrillation eventually it was switched to . The patient is started on physical therapy and occupational therapy. He did have some swelling of his lower extremities which resolved when atrial fibrillation resolved. He was treated with diuretics. He did have some elevated BUN and creatinine. Eventually, the patient was controlled with sotalol. He was placed on Xarelto as anticoagulant for atrial fibrillation. He will be follow as an outpatient for possible ambulation. He will be transferred for physical therapy and occupational therapy because of his multiple falls secondary to his polymyositis. FINAL DISCHARGE DIAGNOSES: The patient would be new onset of rapid atrial fibrillation, progressive polymyositis, peripheral edema, renal insufficiency type 1, hypertension and morbid obesity. Smith Antonio MD
== END 2018-03-22 22:00 | DRG 546 ==
LOC: ED 13:24 → ERH 16:24 → CCU 21:21
PROVIDERS: ADMIT Internal Medicine; ATTEND Internal Medicine
DX: M33.20 Polymyositis, organ involvement unspecified (principal); I48.1 Persistent atrial fibrillation; I48.0 Paroxysmal atrial fibrillation; I35.0 Nonrheumatic aortic (valve) stenosis; E03.9 Hypothyroidism, unspecified; E09.9 Drug or chemical induced diabetes mellitus without complications; E66.01 Morbid (severe) obesity due to excess calories; E78.5 Hyperlipidemia, unspecified; E87.5 Hyperkalemia; I10 Essential (primary) hypertension; I25.10 Atherosclerotic heart disease of native coronary artery without angina pectoris; I25.2 Old myocardial infarction; N28.9 Disorder of kidney and ureter, unspecified; R29.6 Repeated falls; S70.12XA Contusion of left thigh, initial encounter; S90.31XA Contusion of right foot, initial encounter; T38.0X5A Adverse effect of glucocorticoids and synthetic analogues, initial encounter; Z79.01 Long term (current) use of anticoagulants; Z79.02 Long term (current) use of antithrombotics/antiplatelets; Z79.82 Long term (current) use of aspirin; Z79.84 Long term (current) use of oral hypoglycemic drugs; F17.290 Nicotine dependence, other tobacco product, uncomplicated; Z91.81 History of falling; Z95.5 Presence of coronary angioplasty implant and graft; Z68.36 Body mass index [BMI] 36.0-36.9, adult

== ENCOUNTER 2018-03-27 17:42 | Inpatient (IN) | payer MEDICARE, OTHER ==
[2018-03-27 17:43] VITALS: PULSE 94
[2018-03-27 17:54] VITALS: BMI 31.0
[2018-03-27 19:26] LABS: BASO # 0.03 K/mm3 (0.0-2.0); BASO % 0.2 % (0.0-3.0); HEMOGLOBIN 7.5 g/dL (14.0-18.0); LYMPH # 2.2 (1.2-3.4); LYMPH % 15.2 % (22.0-35.0); MEAN CELL VOLUME 95.2 fl (80.0-105.0); MEAN CORPUSCULAR HEMOGLOBIN 30.2 pg (25.0-35.0); MEAN CORPUSCULAR HGB CONC 31.8 g/dl (31.0-37.0); MEAN PLATELET VOLUME 9.1 fl (7.0-11.0); MONO # 0.7 (0.1-0.6); MONO % 4.6 % (1.0-6.0); PLATELET COUNT 303 10^3/uL (120.0-450.0); RBC 2.48 10^6/uL (3.5-6.1); RED CELL DISTRIBUTION WIDTH 20.9 % (11.5-14.5); WHITE BLOOD COUNT 14.2 10^3/uL (4.5-11.0)
--- NOTE | 2018-03-27 19:28 | ED PDOC ---
Arrival/HPI - General Chief Complaint: Abnormal Labs Time Seen by Provider: 03/27/18 17:51 Historian: Patient - History of Present Illness Narrative History of Present Illness (Text): 03/27/18 17:45 72 year old male, whose past medical history includes CAD with 5 stents (3 stents from 2007 and 2 from 2008), diabetes, and ankle surgery from age of 11, who presents to the Emergency department from [facility] for blood transfusion due to very low Hemoglobin at 6.8. Patient reports he has fallen 8 times since 02/26/18 at home using his sisters walker. Patient notes intermittent bilateral leg swelling. Patient notes pain behind left thigh, described as "feeling like a rock," since 03/19/18. Patient denies any fever, chills, chest pain, shortness of breath, nausea, vomiting, diarrhea, urinary symptoms, back pain, neck pain, headache, dizziness, or any other complaints. PMD: Dr. Antonio Medical Assembly: Dr. Zhu Time/Duration: Prior to Arrival Symptom Onset: Sudden Symptom Course: Unchanged Activities at Onset: Light Past Medical History - Provider Review Nursing Documentation Reviewed: Yes - Cardiac Hx Hypertension: Yes - Pulmonary Hx Respiratory Disorders: No - Neurological Hx Neurological Disorder: Yes Other/Comment: POLYMYOSITIS - HEENT Hx HEENT Disorder: No - Renal Hx Renal Disorder: No - Endocrine/Metabolic Hx Diabetes Mellitus Type 2: Yes Hx Hypothyroidism: Yes - Hematological/Oncological Hx Blood Disorders: No - Integumentary Hx Dermatological Disorder: No - Musculoskeletal/Rheumatological Other/Comment: polymyositis - Gastrointestinal Hx Gastrointestinal Disorders: No - Genitourinary/Gynecological Hx Genitourinary Disorders: No - Psychiatric Hx Psychophysiologic Disorder: No Hx Emotional Abuse: No Hx Physical Abuse: No Hx Substance Use: No - Surgical History Hx Cardiac Catheterization: Yes Hx Coronary Stent: Yes (5 stents) Hx Musculoskeletal Surgery: Yes - Anesthesia Hx Anesthesia: Yes Hx Anesthesia Reactions: No Hx Malignant Hyperthermia: No - Suicidal Assessment Feels Threatened In Home Enviroment: No Family/Social History - Physician Review Nursing Documentation Reviewed: Yes Family/Social History: No Known Family HX Smoking Status: Former Smoker Hx Alcohol Use: Yes (WINE) Hx Substance Use: No Allergies/Home Meds Allergies/Adverse Reactions: Allergies Penicillins Allergy (Severe, Verified 01/04/18 12:30) RASH,HIVES,SHORT OF BREATH Home Medications: Home Meds Medication Instructions Recorded Confirmed Ascorbic Acid [Vitamin C] 1,000 mg PO QWK 01/04/18 03/01/18 Aspirin [Ecotrin] 81 mg PO DAILY 01/04/18 03/01/18 Cholecalciferol (Vitamin D3) 2,000 unit PO DAILY 01/04/18 03/01/18 [Vitamin D3] Clopidogrel [Plavix] 75 mg PO DAILY 01/04/18 03/01/18 Metoprolol Tartrate [Lopressor] 25 mg PO BID 01/04/18 03/01/18 [place]-3 Fatty Acids/Fish Oil 1,200 mg PO BID 01/04/18 03/01/18 [[place] 3 Fish Oil Softgel] Hyalur AC/Chond Sul/Colg II/Aa 100 mg PO DAILY 03/01/18 03/01/18 [Hyaluronic Acid 40 mg Capsule] Metformin HCl [Glucophage] 850 mg PO DAILY 03/01/18 03/01/18 Multivitamin [Daily Multiple 1 tab PO DAILY 03/01/18 03/01/18 Vitamin] Pantoprazole Sodium [Protonix] 40 mg PO DAILY 03/01/18 03/01/18 Prednisone [Lupe] 10 mg PO Q4H 03/01/18 03/01/18 Turmeric Root Extract [Turmeric 1,000 mg PO BID 03/01/18 03/01/18 Curcumin] Ubidecarenone/Vit E Acet [Co Q-10 100 mg PO DAILY 03/01/18 03/01/18 100 mg Softgel] Review of Systems - Physician Review All systems were reviewed & negative as marked: Yes - Review of Systems Constitutional: Normal. absent: Fevers, Night Sweats Respiratory: Normal. absent: SOB Cardiovascular: Normal. absent: Chest Pain Gastrointestinal: absent: Normal, Abdominal Pain, Diarrhea, Nausea, Vomiting Genitourinary Male: Normal. absent: Urinary Output Changes Musculoskeletal: Other. absent: Normal, Back Pain, Neck Pain Skin: absent: Normal Neurological: Normal. absent: Headache, Dizziness Hemo/Lymphatic: absent: Normal Physical Exam - Physical Exam Narrative Physical Exam (Text): Constitutional: No acute distress. Head: Normocephalic. Atraumatic. Eyes: PERRL. ENT: Moist mucous membranes. Neck: Supple. Cardiovascular: Regular rate. Chest: No tenderness. Respiratory: Clear to auscultation bilaterally. GI: Soft. Nontender. Nondistended. Rectal: Guaiac negative. Back: No CVA tenderness. Musculoskeletal: Bilateral lower legs with ecchymosis. Left thigh firm and edematous. Skin: No rash. Neurologic: Alert, no focal deficit. Vital Signs Reviewed: Yes Vital Signs Temp Pulse Resp BP Pulse Ox 03/27/18 18:02 98.0 F 76 18 134/62 100 Temperature: Afebrile Blood Pressure: Normal Pulse: Regular Respiratory Rate: Normal Appearance: Positive for: Well-Appearing, Non-Toxic, Comfortable Pain Distress: Mild Mental Status: Positive for: Alert and Oriented X 3 Medical Decision Making ED Course and Treatment: 03/27/18 17:45 Impression: 72 year old male who presents to the Emergency department from [facility] for blood transfusion due to very low Hemoglobin at 6.8. Differential Diagnosis included but are not limited to: Plan: -- Labs -- EKG -- X-Ray of chest -- Reassess and disposition Prior Visits: Notes and results from previous visits were reviewed. Patient was last seen in the emergency department on 03/14/18 sent to the emergency department from Dr. Rolon's office to be admitted by Dr. Antonio here at [facility] for Polymyositis. Pt was hospitalized in fair condition. Progress Notes: Discussed case with Dr. 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 States will f/u CT of leg. - RAD Interpretation Radiology Orders: 03/27/18 17:51 CHEST PORTABLE [RAD] Stat - Scribe Statement The provider has reviewed the documentation as recorded by the Scribe Laura Choih All medical record entries made by the Scribe were at my direction and personally dictated by me. I have reviewed the chart and agree that the record accurately reflects my personal performance of the history, physical exam, medical decision making, and the department course for this patient. I have also personally directed, reviewed, and agree with the discharge instructions and disposition. Disposition/Present on Arrival - Present on Arrival Any Indicators Present on Arrival: No History of DVT/PE: No History of Uncontrolled Diabetes: No Urinary Catheter: No History of Decub. Ulcer: No History Surgical Site Infection Following: Orthopedic Procedures - Disposition Have Diagnosis and Disposition been Completed?: Yes Diagnosis: Anemia, Multiple ecchymoses of thigh Disposition: HOSPITALIZED Disposition Time: 20:00 Patient Plan: Admission Condition: GUARDED
[2018-03-27 19:36] LABS: INR 1.25; PARTIAL THROMBOPLASTIN TIME 26.9 Seconds (26.9-38.3); PROTHROMBIN TIME 13.9 SECONDS (9.4-12.5)
[2018-03-27 19:40] LABS: ALB/GLOB RATIO 0.9 (1.1-1.8); ALBUMIN 3.1 g/dL (3.0-4.8); ALT/SGPT 47 U/L (7-56); AST/SGOT 39 U/L (17-59); BLOOD UREA NITROGEN 30 mg/dL (7-21); CALCIUM 9.2 mg/dL (8.4-10.5); GFR NON-AFRICAN AMERICAN > 60
[2018-03-27 22:39] LABS: LYMPHOCYTE 8 % (22.0-35.0); MONOCYTE 7 % (1.0-6.0); NEUTROPHIL 85 % (50.0-70.0); NUCLEATED RED BLOOD CELL 3 %; PLATELET ESTIMATE NORMAL (NORMAL)
[2018-03-27 22:40] LABS: ANISOCYTOSIS 2+; MICROCYTOSIS 1+; POLYCHROMASIA 1+
[2018-03-28] MEDS ORDERED: Influenza Vaccine 60 mcg/0.5 mL SYR (4YR UP) IM ONE (03:34)
[2018-03-28] MEDS ORDERED: Pneumococcal 23-Valent Vaccine IM ONE (03:34)
--- NOTE | 2018-03-28 08:43 | RAD ---
Date of service: 03/27/2018 HISTORY: anemia COMPARISON: 03/14/2018 FINDINGS: LUNGS: No active pulmonary disease. PLEURA: No significant pleural effusion identified, no pneumothorax apparent. CARDIOVASCULAR: No aortic atherosclerotic calcification present. Normal cardiac size. No pulmonary vascular congestion. OSSEOUS STRUCTURES: No significant abnormalities. VISUALIZED UPPER ABDOMEN: Normal. OTHER FINDINGS: None. IMPRESSION: No active disease.
[2018-03-28 09:15] LABS: BASO # 0.02 K/mm3 (0.0-2.0); BASO % 0.2 % (0.0-3.0); EOS % 0.1 % (1.5-5.0); HEMOGLOBIN 8.6 g/dL (14.0-18.0); LYMPH # 2.5 (1.2-3.4); LYMPH % 22.8 % (22.0-35.0); MEAN CELL VOLUME 92.8 fl (80.0-105.0); MEAN CORPUSCULAR HEMOGLOBIN 29.7 pg (25.0-35.0); MONO # 0.6 (0.1-0.6); MONO % 5.2 % (1.0-6.0); RBC 2.9 10^6/uL (3.5-6.1); RED CELL DISTRIBUTION WIDTH 20.4 % (11.5-14.5); WHITE BLOOD COUNT 11.1 10^3/uL (4.5-11.0)
[2018-03-28 09:26] LABS: ALB/GLOB RATIO 0.9 (1.1-1.8); ALBUMIN 2.7 g/dL (3.0-4.8); ALT/SGPT 52 U/L (7-56); AST/SGOT 36 U/L (17-59); BLOOD UREA NITROGEN 32 mg/dL (7-21); CALCIUM 8.6 mg/dL (8.4-10.5); GFR NON-AFRICAN AMERICAN > 60
--- NOTE | 2018-03-28 10:00 | CT ---
Date of service: 03/27/2018 PROCEDURE: CT left lower extremity HISTORY: acutely anemic, L thigh with ecchymosis/edema COMPARISON: Not available TECHNIQUE: 2.5 mm contiguous axial sections were acquired through the left thigh hip from the iliac to the proximal tibia sagittal and coronal images were reformatted from the axial scan. FINDINGS: There is no osseous fracture. There is no lytic or blastic osseous lesion. There is extensive intramuscular hemorrhage into the adductor diego, semimembranous and semitendinosis muscles. There is no soft tissue mass identified. Visualized portions of the intrapelvic soft tissue structures demonstrate no evidence of hemorrhage. There is an incidentally noted left inguinal hernia containing only mesenteric fat. IMPRESSION: Extensive intramuscular hemorrhage into the thigh as described. No osseous fracture. Incidental left inguinal hernia containing only mesenteric fat. The preliminary findings for this examination were reported by [facility] at 10:32 p.m. on 03/27/2018. There is concurrence of this report with the preliminary findings.
[2018-03-28 10:40] LABS: BASO # 0.03 K/mm3 (0.0-2.0); BASO % 0.3 % (0.0-3.0); EOS % 0.4 % (1.5-5.0); HEMOGLOBIN 8.4 g/dL (14.0-18.0); LYMPH # 2.3 (1.2-3.4); LYMPH % 21.2 % (22.0-35.0); MEAN CELL VOLUME 93.3 fl (80.0-105.0); MEAN CORPUSCULAR HEMOGLOBIN 29.6 pg (25.0-35.0); MEAN CORPUSCULAR HGB CONC 31.7 g/dl (31.0-37.0); MONO # 0.5 (0.1-0.6); MONO % 4.9 % (1.0-6.0); RBC 2.84 10^6/uL (3.5-6.1); RED CELL DISTRIBUTION WIDTH 20.4 % (11.5-14.5); WHITE BLOOD COUNT 10.7 10^3/uL (4.5-11.0)
[2018-03-28] MEDS: Pantoprazole 40 mg EC Tab PO SCH (11:19)
--- NOTE | 2018-03-28 11:26 | CARD ---
APPROVED REPORT Date of service: 03/27/2018 EKG Measurement Heart [id number] <Conclusion> Normal sinus rhythm Right bundle branch block.
[2018-03-28] MEDS: Insulin Reg-LOW-Coverage SC SCH ×3 (12:00→23:42)
--- NOTE | 2018-03-28 13:24 | CP.PCM.APN ---
Subjective - Date & Time of Evaluation Date of Evaluation: 03/28/18 Time of Evaluation: 11:30 - Subjective Subjective: pt seenannd examined at bedside pt in NAD ROS negative Objective - Vital Signs/Intake and Output Vital Signs (last 24 hours): Temp Pulse Resp BP Pulse Ox 98.6 F 69 18 131/78 95 03/28/18 06:31 03/28/18 06:31 03/28/18 06:31 03/28/18 06:31 03/28/18 06:00 Intake and Output: 03/28/18 03/28/18 06:59 18:59 Intake Total 375 Balance 375 - Medications Medications: Current Medications Insulin Human Regular (Humulin R Low) 0 units SC [facility]; Protocol Metformin HCl (Glucophage) 850 mg PO DAILY [facility] Last Admin: 03/28/18 11:18 Dose: 850 mg Metoprolol Tartrate (Lopressor) 25 mg PO BID [facility] Last Admin: 03/28/18 11:18 Dose: 25 mg Pantoprazole Sodium (Protonix Ec Tab) 40 mg PO DAILY [facility] Last Admin: 03/28/18 11:19 Dose: 40 mg Prednisone (Prednisone Tab) 20 mg PO DAILY [facility] Last Admin: 03/28/18 11:19 Dose: 20 mg - Labs Labs: 03/28/18 10:00 03/28/18 09:00 PT 13.9 SECONDS (9.4-12.5) H 03/27/18 19:17 INR 1.25 03/27/18 19:17 APTT 26.9 Seconds (26.9-38.3) 03/27/18 19:17 - Constitutional Appears: No Acute Distress - Eye Exam Eye Exam: Normal appearance Pupil Exam: NORMAL ACCOMODATION, PERRL - Respiratory Exam Respiratory Exam: NORMAL BREATHING PATTERN - Cardiovascular Exam Cardiovascular Exam: +S1, +S2 - GI/Abdominal Exam GI & Abdominal Exam: Normal Bowel Sounds - Neurological Exam Neurological Exam: Alert, Awake, Oriented x3 - Skin Skin Exam: Dry, Intact Additional comments: left thigh ecchomysis Assessment and Plan - Assessment and Plan (Free Text) Plan: 72 yr old male with pmh sig for prox afib ( ussed to be on Pradaxa), multiple falls ( 8 per Ed notes since 02.26.18), cad with stents, dm, ankle surgery at age 11 now admit with acute anemia , ct lower ext shows hemorrhage in let thigh Discuss with PMD Dr Antonio : transfuse 1 unit today as count did not improve with transfusion yesterday will cehck stool for OB , rule out active bleed order ECho to assess LV - pt had afib hx and is off anticoag will await cardio imput re : risk vs benefit of anticag in settig of CAD with stents and multiple falls hx. [facility] discuss plan with RN Will follow BPCI/TIC - BPCIA/TIC Educated pt/family on BPCIA/CIR/Med to Bed Programs: N/A Flyers given, including CMS Beneficiary letter: N/A Pt/family verbalized understanding & agreed to program: N/A
--- NOTE | 2018-03-28 17:00 | CARD ---
APPROVED REPORT Date of service: 03/28/2018 EXAM: Two-dimensional and M-mode echocardiogram with Doppler and color Doppler. INDICATION LVFX 2D DIMENSIONS Left Atrium (2D)4.7 (1.6-4.0cm)IVSd1.6 (0.7-1.1cm) LVDd4.6 (3.9-5.9cm)LVOT Diameter2.1 (1.8-2.4cm) PWd1.6 (0.7-1.1cm)LVDs3.2 (2.5-4.0cm) FS (%) 30.0 %LVEF (%)57.3 (>50%) M-Mode DIMENSIONS Aortic Root3.60 (2.2-3.7cm)Aortic Cusp Exc.0.90 (1.5-2.0cm) Aortic Valve AoV Peak Zfoaqmhr688.0cm/sAoV VTI64.0cmAO Peak GR.42mmHg LVOT Peak Nmogsidt600.0cm/sLVOT VTI26.00cmAO Mean GR.23mmHg Mitral Valve MV E Pqdefyxw851.0cm/sMV A Thupkfpw662.0cm/sE/A ratio0.9 TDI Lateral E' Peak V9.46cm/sMedial E' Peak V7.70cm/sE/Lateral E'10.7 E/Medial E'13.1 Pulmonary Valve PV Peak Dqudfuly07.3cm/sPV Peak Grad.3mmHg Tricuspid Valve TR Peak Dyalidei231nw/sRAP JXEJCBRL00pxYfGF Peak Gr.27mmHg THBH16krWv LEFT VENTRICLE The left ventricle is normal size. There is mild to moderate concentric left ventricular hypertrophy. The left ventricular function is normal.EF-55-60% There is normal LV segmental wall motion. Transmitral Doppler flow pattern is Grade III-reversible restrictive diastolic dysfunction. No left ventricle thrombus noted on this study. There is no ventricular septal defect visualized. There is no left ventricular aneurysm. There is no mass noted in the left ventricle. RIGHT VENTRICLE The right ventricle is normal size. There is normal right ventricular wall thickness. The right ventricular systolic function is normal. ATRIA The left atrium is mildly dilated. The right atrium size is normal. The interatrial septum is intact with no evidence for an atrial septal defect. AORTIC VALVE The aortic valve is calcified and displays decreased opening. There is trace aortic regurgitation. There is mild to moderate valvular aortic stenosis. There is no aortic valvular vegetation. MITRAL VALVE The mitral valve is thickened but opens well. Mitral regurgitation is mild to moderate. There is no mitral valve stenosis. There is no evidence of mitral valve prolapse. TRICUSPID VALVE The tricuspid valve leaflets are thickened , but open well. There is trace to mild tricuspid regurgitation.RVSP_37 mmof Hg. There is no tricuspid valve stenosis. There is no tricuspid valve prolapse or vegetation. PULMONIC VALVE The pulmonary valve is normal in structure. There is trace pulmonic valvular regurgitation. There is no pulmonic valvular stenosis. GREAT VESSELS The aortic root is normal in size. The ascending aorta is normal in size. The pulmonary artery is normal. The IVC is normal in size and collapses >50% with inspiration. PERICARDIAL EFFUSION There is no pleural effusion. There is no pericardial effusion. <Conclusion> The left ventricle is normal size. The left ventricular function is normal.EF-55-60% There is trace aortic regurgitation. There is mild to moderate valvular aortic stenosis. Mitral regurgitation is mild to moderate. There is trace to mild tricuspid regurgitation.RVSP_37 mmof Hg. The IVC is normal in size and collapses >50% with inspiration. There is no pericardial effusion. No Vegetation or thrombus noted.
--- NOTE | 2018-03-28 20:25 | HP ---
DATE OF EXAM: 03/28/2018 HISTORY OF PRESENT ILLNESS: A 72-year-old white male admitted on 03/27/2018. He was transferred from subacute where he was rehabbing from polymyositis. The patient recently had episode of rapid atrial fibrillation and was controlled in the hospital. He also has a history of CAD with stents in the past. He was recently diagnosed with polymyositis, which is progressive and unresponsive to weekly IV gamma globulin and he was admitted for intravenous gamma globulin. The patient developed a hematoma of the left leg and flank in the hospital; however, it was stable. He was found to be severely anemic with hemoglobin down to 8.6 the last several days at the rehab facility and was transferred for blood transfusion and possible evaluation of his hematoma. REVIEW OF SYSTEMS: Negative for chest pain, palpitations, or shortness of breath. He is positive for generalized muscle weakness and fatigue. He is positive for pain of the left leg and flank. He is negative for hematuria or dysuria. Negative for nausea, vomiting, or diarrhea. Negative for cough, sputum production, or shortness of breath. MEDICATIONS: The patient is on multiple medications including antiplatelet medication because of his CAD and recent atrial fibrillation. He is also on cardiac medications to control his heart rate including Cardizem, sotalol, etc. He is on multivitamins from the rehab facility and he is on prednisone because of the polymyositis. PHYSICAL EXAMINATION: GENERAL: This is a well-developed, slightly obese white male, in no apparent distress this morning. HEART: Regular sinus. No S3 or murmurs. CHEST: Clear to auscultation and percussion. ABDOMEN: Obese, but benign. EXTREMITIES: Without cyanosis, clubbing or edema. There is a left calf, left leg, and left flank hematoma. There is no fluctuance noted. LABORATORY DATA: The patient has been transfused 2 units of blood. He is anxious to restart his physical therapy and will be transferred back to his facility. We will discuss the patient's hemoglobin on admission was 7.5, this morning it is 8.6 and we will repeat and retransfuse if necessary. His PT was 15.5. His INR was 1.25. BUN and creatinine were 32 and 0.6. His sugar was 180, bilirubin was 1.4, and albumin was 2.7. Chest x-ray was clear. He did have a CT of the lower extremity, awaiting results. IMPRESSION AND PLAN: This is a 72-year-old white male with severe polymyositis, presenting with a hematoma, drop of his hemoglobin and recent history of rapid atrial fibrillation and remote history of coronary artery disease. Smith Antonio MD
[2018-03-29 08:19] VITALS: RESP 20
[2018-03-29 08:35] LABS: HEMOGLOBIN 9.9 g/dL (14.0-18.0); MEAN CELL VOLUME 93.2 fl (80.0-105.0); MEAN CORPUSCULAR HEMOGLOBIN 29.3 pg (25.0-35.0); MEAN CORPUSCULAR HGB CONC 31.4 g/dl (31.0-37.0); RBC 3.38 10^6/uL (3.5-6.1); RED CELL DISTRIBUTION WIDTH 20.3 % (11.5-14.5); WHITE BLOOD COUNT 8.9 10^3/uL (4.5-11.0)
[2018-03-29 08:51] LABS: ALBUMIN 2.8 g/dL (3.0-4.8); ALT/SGPT 32 U/L (7-56); AST/SGOT 38 U/L (17-59); BLOOD UREA NITROGEN 28 mg/dL (7-21); CALCIUM 9.2 mg/dL (8.4-10.5); GFR NON-AFRICAN AMERICAN > 60
[2018-03-29] MEDS: Pantoprazole 40 mg EC Tab PO SCH (09:06)
[2018-03-29] MEDS: Insulin Reg-LOW-Coverage SC SCH (09:06)
--- NOTE | 2018-03-29 11:23 | DS ---
HISTORY OF PRESENT ILLNESS: This is a 72-year-old male who had come into the hospital because he had developed hematoma of the left leg secondary to the anticoagulation that the patient was on for his atrial fibrillation. The patient was given transfusion, his hemoglobin has improved. He denies any leg pain. He has no complaints of any shortness of breath, chest pain, nausea, vomiting. The patient had hemoglobin of 9.9. I spoke to Dr. Chavarria this morning, the patient can be discharged. The patient does have an elevated potassium, most likely from the hematoma. He will need to be on Kayexalate and repeat blood work will be done at [facility]. PHYSICAL EXAMINATION: VITAL SIGNS: Temperature is 97.6, pulse of 66, blood pressure 150/80, respirations 20, O2 saturations 97%. GENERAL: The patient is lying in bed, flat, comfortable. HEENT: No oral lesion. Anicteric sclerae. Moist mucosa. NECK: No JVD, adenopathy, or thyromegaly. CARDIOVASCULAR: S1 and S2, regular. No murmurs, rubs, or gallops. LUNGS: Clear to auscultation bilaterally. No wheeze, rales, or rhonchi. ABDOMEN: Bowel sounds are positive, soft, nontender and nondistended. EXTREMITIES: No cyanosis, clubbing or edema. Left leg hematoma. LABORATORY DATA: Potassium is 5.4. Hemoglobin is 9.9. ASSESSMENT: 1. Left leg hematoma. 2. Atrial fibrillation, now in sinus rhythm. 3. Polymyositis. 4. Coronary artery disease. 5. Diabetes type 2. PLAN: The patient is continuing on metformin for his diabetes. He is on metoprolol for his coronary artery disease. I will hold his aspirin and his anticoagulation. He will continue sotalol. He will be discharged home. CONDITION: Stable. ACTIVITIES: Increase as tolerated. The patient is going to be discharge to subacute rehab. His hemoglobin is better. He is going to continue his metformin. He will continue his sotalol. He is not going to continue with aspirin, Plavix or his anticoagulation. I did speak to Dr. Chavarria regarding the case to confirm his anticoagulation is going to be held and he is in agreement. The patient is also going to get his blood work checked in a few days for his potassium and his hemoglobin, I will give him Kayexalate here. I have the nurse write on the discharge to have the patient get blood work at least weekly. DISPOSITION: Discharged to [facility]. Walker Jean MD
--- NOTE | 2018-03-29 12:39 | CON ---
DATE: 03/29/2018 REQUESTING PHYSICIAN: Dr. Antonio. REASON FOR CONSULTATION: Paroxysmal atrial fibrillation and anemia. 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 He developed atrial fibrillation with rapid ventricular response and which was extremely difficult to control in the hospital. He ultimately did convert to sinus rhythm and was placed on sotalol. He was discharged on digoxin, diltiazem, sotalol, and Xarelto. He does have known coronary artery disease and underwent multivessel PCI in the past. He also has a history of moderate aortic stenosis. He was recently found to have severe anemia with a hemoglobin of 8.6. He is unaware of any bleeding, denied the dark or tarry stools. He was admitted and transfused. His hemoglobin has improved to 9.9. PAST MEDIAL HISTORY: His past history is notable for the problems mentioned above. MEDICATIONS: Current medications include sotalol 80 mg b.i.d., Glucophage, insulin coverage, prednisone 20 mg daily, and Protonix. He also had been taking digoxin 0.25 mg daily and Cardizem CD 480 mg daily. ALLERGIES: HE HAS HAD A REACTION TO PENICILLIN IN THE PAST. SOCIAL HISTORY: He does not smoke or drink. He is retired and lives with his . FAMILY HISTORY: Both parents from age-related illness. REVIEW OF SYSTEMS: Ten-point review of systems is otherwise unremarkable. PHYSICAL EXAMINATION: GENERAL: He is a middle-aged man, who appears comfortable at rest. VITAL SIGNS: His blood pressure is 122/60 with a pulse of 60 and regular, respirations are 14. He is afebrile. HEENT: Normocephalic and atraumatic. NECK: Supple. No JVD noted. CHEST: Clear to auscultation and percussion. HEART: PMI displaced laterally with increased splitting of the second sound. Systolic murmur is present at the base radiating to the carotids. ABDOMEN: Soft and nontender with normoactive bowel sounds. EXTREMITIES: 1+ leg edema to the knees. SKIN: Warm and dry. PSYCHIATRIC: Normal mood and affect. NEUROLOGIC: Alert and oriented x3. DIAGNOSTIC DATA: Potassium 5.4, BUN and creatinine 28 and 0.6 with glucose of 165. White count is 8.9, hemoglobin and hematocrit are 9.9 and 31.5, with a platelet count of 229,000. IMPRESSION: 1. Recent severe anemia, suspect some form of gastrointestinal losses, given concomitant use of Xarelto and prednisone. 2. Paroxysmal atrial fibrillation, currently in sinus rhythm. 3. History of polymyositis, undergoing treatment and therapy. 4. Moderate aortic stenosis. 5. Known coronary artery disease status post prior PCI, clinically stable. 6. Rest of problems as noted. RECOMMENDATIONS: All antithrombotic and antiplatelet therapy should be withheld. An eventual GI evaluation for sources of blood loss would be advisable. Sotalol will be continued in attempts to maintain sinus rhythm. Digoxin and diltiazem can be withheld at this time. Blood pressure monitoring should be advised going forward to see if he needs additional antihypertensive agents, given withdrawal of diltiazem. We will be happy to see you in the future as needed. Brown Chavarria MD [facility]
[2018-03-29 15:11] VITALS: BP 127/74; PULSE 76; TEMP 98.3; O2SAT 99
== END 2018-03-29 17:59 | DRG 812 ==
LOC: ED 17:42 → ERH 19:54 → 5RSO 03-28 01:45
PROVIDERS: ADMIT Internal Medicine; ATTEND Internal Medicine
PROC: 30233N1 Transfusion of Nonautologous Red Blood Cells into Peripheral Vein, Percutaneous Approach (ICD-10-PCS; principal; 2018-03-27)
DX: D64.9 Anemia, unspecified (principal); M33.20 Polymyositis, organ involvement unspecified; E03.9 Hypothyroidism, unspecified; E11.9 Type 2 diabetes mellitus without complications; I10 Essential (primary) hypertension; I25.10 Atherosclerotic heart disease of native coronary artery without angina pectoris; I35.0 Nonrheumatic aortic (valve) stenosis; I48.0 Paroxysmal atrial fibrillation; S80.12XA Contusion of left lower leg, initial encounter; Z79.02 Long term (current) use of antithrombotics/antiplatelets; Z79.82 Long term (current) use of aspirin; Z95.5 Presence of coronary angioplasty implant and graft; Z88.0 Allergy status to penicillin

== ENCOUNTER 2018-05-16 09:15 | Outpatient (CLI) | payer MEDICARE | END 2018-05-16 09:16 | disposition home or self-care (01) | LOC: LAB 09:15 | DX: M33.20 Polymyositis, organ involvement unspecified (principal) ==

== ENCOUNTER 2018-06-27 08:55 | Outpatient (CLI) | payer MEDICARE, OTHER | END 2018-06-27 08:56 | disposition home or self-care (01) | LOC: OPLAB 08:55 ==